=== PATIENT | female | born 1945 | race Caucasian/White ===

== ENCOUNTER 2016-10-09 08:56 | Inpatient (IN) | payer MEDICARE, BC ==
--- NOTE | 2016-10-04 04:14 | HP ---
HISTORY AND PHYSICAL: DATE OF SURGERY: 10/09/16 DATE OF OFFICE VISIT: 10/03/16 SURGEON: Emily Collazo MD PROCEDURE: Right total knee arthroplasty. CHIEF COMPLAINT: Right knee pain. HISTORY OF PRESENT ILLNESS: Ms. Turcios is a 71-year-old female with complaints of right knee pain secondary to advanced osteoarthritis. She has failed conservative management and has elected to proceed with right total knee arthroplasty, which is scheduled for 10/09/16. PAST MEDICAL HISTORY: Angina, asthma, GERD, polio, squamous cell carcinoma, hypertension, high cholesterol, osteomyelitis of the left foot. PAST SURGICAL HISTORY: Stent placement, tendon transfer of right leg, , tubal ligation, bunionectomy. CURRENT MEDICATIONS: 1. Nitroglycerin. 2. Omeprazole. 3. Rosuvastatin calcium. 4. Albuterol. 5. Bisoprolol fumarate/hydrochlorothiazide. 6. Budesonide/formoterol. 7. Montelukast. 8. Cyclosporine. 9. Restasis. 10. PreserVision. 11. Vitamin E. 12. Crestor. ALLERGIES: ATORVASTATIN, TAPE, MORPHINE which causes headaches, and OPIOID ANALGESICS which causes nausea only. FAMILY HISTORY: Heart disease, diabetes, breast cancer, esophageal cancer. SOCIAL HISTORY: She is a 71-year-old female. She is . She lives with her . She does not smoke, use drugs. Uses occasional alcohol. REVIEW OF SYSTEMS: A complete 14-point review of systems was reviewed with the patient. All was negative or noncontributory. PHYSICAL EXAMINATION GENERAL: She is well developed, well nourished, in no acute distress. VITAL SIGNS: She stands 5 feet 4 inches tall, weighs 165 pounds. Her blood pressure is 128/80, her heart rate is 81. HEENT: Normocephalic, atraumatic. NECK: Supple. No palpable lymph nodes. Trachea is midline. PULMONARY: Lungs are clear to auscultation bilaterally. No wheezes, rhonchi, or rales. CARDIO: Regular rate and rhythm. Strong S1, S2. No murmurs, gallops, or rubs. No peripheral edema. ABDOMEN: Soft, nontender, nondistended. NEUROLOGICAL: She is alert and oriented x3. Cranial nerves II through XII are intact. MUSCULOSKELETAL: Right lower extremity, the skin is intact. She has moderate joint effusion, tenderness over the medial and lateral joint line. She walks with an antalgic type gait favoring her right knee. She has full range of motion. 2+ dorsalis pedis pulses. Intact sensation. Her lower extremity muscle strengths are intact at 5/5. ASSESSMENT AND PLAN: Ms. Turcios is a 71-year-old female with continued complaints of right knee pain. She has failed conservative management and has elected to proceed with a right total knee arthroscopy which is scheduled for 10/09/[address] Collazo discussed the risks and benefits of the surgery at today's visit and all of her questions were answered. Percocet, Coumadin, and Colace were sent to her pharmacy for postoperative DVT prophylaxis and pain control. She will see Dr. Collazo back in 14 days after the surgery. LEWIS BURKETT [id number]/[facility] #: [id number] LAILA
[~2016-10-09 08:56] MED LIST: Buffered Lidocaine 1% SYRIN* 3 ML/SYR SYRINGE INTRADERM ONE; Dexamethasone IV* 4 MG/ML 1 ML (4 MG) IV SLOW PU ONE; Famotidine IV* 10 MG/ML 2 ML (20 mg) IV ONE
[2016-10-09] MEDS ORDERED: HYDROmorphone* 1 MG/ML 1 ML SYR ONE ×3 (09:04→14:22)
[2016-10-09] MEDS ORDERED: Midazolam* 1 MG/ML 5 ML VIAL (5 MG) ONE (09:04)
[2016-10-09] MEDS ORDERED: fentaNYL* 50 MCG/ML 2 ML VIAL (100 MCG VIAL) ONE ×3 (09:04→14:16)
[2016-10-09] MEDS ORDERED: Morphine PF AMP (0.5MG/ML)* 5 MG/10 ML AMP ONE (09:04)
[2016-10-09] MEDS ORDERED: Famotidine IV* 10 MG/ML 2 ML (20 mg) ONE (09:11)
[2016-10-09] MEDS ORDERED: Dexamethasone IV* 4 MG/ML 1 ML (4 MG) ONE (09:11)
[2016-10-09] MEDS ORDERED: ceFAZolin 2 GM PREMIX(*) 2 GM/50 ML BAG IVPB ONE (09:11)
[2016-10-09] MEDS ORDERED: fentaNYL* 50 MCG/ML 2 ML VIAL (100 MCG VIAL) IV PRN (10:43)
[2016-10-09] MEDS ORDERED: PROCHLORPERAZINE INJ 5 MG/ML 2 ML VIAL IV PRN ×2 (10:43→12:44)
[2016-10-09] MEDS ORDERED: DiMENhydriNATE IV* 50 MG/ML VIAL IV PUSH PRN ×2 (10:43→12:44)
[2016-10-09] MEDS ORDERED: Ondansetron INJ* 2 MG/ML VIAL IV PRN ×3 (10:43→14:24)
[2016-10-09] MEDS ORDERED: Nalbuphine* 20 MG/ML 1 ML VIAL IV PRN (12:44)
[2016-10-09] MEDS ORDERED: Naloxone* 0.4 MG/ML 1 ML VIAL IV PRN (12:44)
[2016-10-09] MEDS ORDERED: Polyethylene Glycol 3350* 17 GM PACKET PO PRN (14:24)
[2016-10-09] MEDS ORDERED: Bisacodyl SUPP* 10 MG SUPP PR PRN (14:24)
[2016-10-09] MEDS ORDERED: LACTULOSE* 30 ML UDC PO PRN (14:24)
--- NOTE | 2016-10-09 15:59 | RAD ---
Indication: Right knee replacement. 2 views of the right knee demonstrates bipolar knee arthroplasty in satisfactory position. IMPRESSION: Bipolar knee arthroplasty in satisfactory position.
[2016-10-09] MEDS ORDERED: Ondansetron INJ* 2 MG/ML VIAL ONE (16:14)
[2016-10-09] MEDS ORDERED: Albuterol HFA INHALER* 8 gm MDI INH PRN (16:21)
[2016-10-09] MEDS ORDERED: DiMENhydriNATE IV* 50 MG/ML VIAL ONE (16:54)
[2016-10-09] MEDS ORDERED: Warfarin TAB(*) 6 MG PO ONE (17:00)
[2016-10-09] MEDS ORDERED: diPHENhydraMINE IV* 50 MG/ML 1 ml VIAL (BENADRYL) ONE (17:49)
[2016-10-09] MEDS: diPHENhydraMINE IV* 50 MG/ML 1 ml VIAL (BENADRYL) IV PRN ×2 (17:53→23:59)
[2016-10-09] MEDS: Mometasone/Formoter 200/5 MDI INH SCH (20:02)
[2016-10-09] MEDS: ceFAZolin 1 GM in Dextrose (*) 1 GM/50 ML BAG IVPB SCH (20:13)
[2016-10-09] MEDS: Docusate CAP* 100 MG PO SCH (20:15)
[2016-10-09] MEDS: Magnesium Hydroxide LIQ* 30 ML UDC PO SCH (20:15)
[2016-10-09] MEDS: oxyCODONE/Acetamin 5/325 MG* TAB PO PRN (20:48)
--- NOTE | 2016-10-09 22:14 | CONS ---
CONSULTATION REPORT: DATE OF CONSULT: 10/09/16 PRIMARY CARE PROVIDER: Dr. Bowen REQUESTING PHYSICIAN FOR CONSULTATION: Dr. Collazo. MY ATTENDING PHYSICIAN WHILE IN THE HOSPITAL: Dr. Davion Carvajal (report dictated by Josue Duvall NP) REASON FOR MEDICAL CONSULTATION: Evaluation and management of comorbid medical problems. HISTORY OF PRESENT ILLNESS: I refer you to Dr. Collazo's H and P for further details. In short, Mrs. Turcios is a 71-year-old female patient who comes in with history of coronary artery disease, polio, asthma, hypertension, hyperlipidemia , arthritis, tachycardia, vitamin D deficiency, and GERD. Mrs. Turcios presented to Dr. Collazo's services for an elective total knee replacement. She had been having difficulty with right knee pain for some time. She had been failing conservative therapy and she elected to proceed with a right total knee arthroplasty on the . We were asked to evaluate and help manage her medical problems. She was evaluated in the PACU. She said she feels nauseous, but she says this is common for her after anesthesia. She denies having any chest pain or any shortness of breath, says she is feeling well. She denies having any abdominal pain. She says her knee pain is well controlled. PAST MEDICAL HISTORY: Significant for: 1. Coronary artery disease. 2. Polio. 3. Asthma. 4. Hyperlipidemia. 5. Hypertension. 6. Tachycardia. 7. Vitamin D deficiency. 8. GERD. PAST SURGICAL HISTORY: 1. She has had a cardiac catheterization with stent about 10 years ago. 2. She has had x2. 3. Tubal ligation. 4. Tendon replacement but to her lower bilateral knees. 5. She has just today had a right total knee replacement. 6. She has had a bunionectomy. 7. Cataract extraction. MEDICATIONS: Home meds according to the preop list include: 1. Mucinex 600 mg daily. 2. Crestor 40 mg daily. 3. Restasis 1 drop both eyes b.i.d. 4. PreserVision 1 capsule p.o. b.i.d. 5. Omeprazole 40 mg daily. 6. Nitro 1 tablet sublingual every 5 minutes as needed. 7. Singulair 10 mg p.o. daily. 8. Vitamin D 1 capsule p.o. daily. 9. Symbicort 2 puffs inhaled b.i.d. 10. Bisoprolol/hydrochlorothiazide 1 tablet daily. 11. Ventolin 2 puffs every 6 hours as needed. ALLERGIES TO MEDICATIONS: Include LIPITOR, MORPHINE, OPIATES and tapes. FAMILY HISTORY: Her mother had a history of COPD. Father had a CVA. SOCIAL HISTORY: She does not smoke. Does not drink. Her surrogate decision maker is her . REVIEW OF SYSTEMS: There is documented fever. She denied having any significant weight change. There was no double vision. There is no ear discharge. She denies having any rhinorrhea. There is no sore throat. No thyroid enlargement. Denied having any chest pain. No orthopnea. There was nausea. One episode of vomiting here. No abdominal pain. No loss of consciousness. No pruritus and no skin ulcerations. Review of 14 systems completed, all others were negative. PHYSICAL EXAM: GENERAL: At this time, Mrs. Turcios is a 71-year-old female patient. She is sitting in the PACU bed. She does not appear to be in any acute distress. VITAL SIGNS: Reveals a blood pressure of 111/60, pulse 73, respirations 20, O2 sat 98%, temperature 97.3. HEENT: Head atraumatic, normocephalic. Eyes: EOMs are intact. Sclerae anicteric. Throat: Oral mucosa appears to be moist. No oropharyngeal erythema. NECK: Supple. LUNGS: Clear to auscultation bilaterally. No wheezes, rales, or rhonchi. HEART: Heart sounds S1, S2. Regular rate and rhythm. No murmurs, rubs, or gallops. ABDOMEN: Soft, flat. Bowel sounds were hypoactive. EXTREMITIES: Her right lower extremity is jamar wrapped and warm, but distal CSM checks are intact. She is able to move the upper extremities, 5/5 strength. NEUROLOGIC: She is awake, alert, and oriented x3. Tongue midline. Wet Process Head Miller are equal. No gross focal deficits. SKIN: Grossly intact with the exception she has got an incision on the right knee, which is covered with an Jamar dressing. DIAGNOSTIC STUDIES/LAB DATA: Preoperatively revealed a WBC of 7.6, RBC of 4.33 , hemoglobin 12.5, hematocrit 38, platelet count of 191. Glucose 91, BUN 35, creatinine of 0.8. Sodium 142, potassium 4.1, chloride 103, CO2 28, calcium 9.1. She was evaluated preoperatively by her dowel machine operator. Old medical records were reviewed. ASSESSMENT AND PLAN: Mrs. Turcios is a 71-year-old female patient coming into the orthopedic services today for an elective right total knee replacement. Hospitalist service was asked to evaluate and consult. Our recommendations at this point are: 1. Status post total knee replacement: I will defer the management to Dr. Collazo and het team. 2. Coronary artery disease: She is on a Crestor and a beta-salma. We will continue these medications as prescribed. She is on a baby aspirin. We should continue this as soon as it is deemed okay by Orthopedics. 3. Polio: Not an active issue. 4. Asthma: P.r.n. albuterol has been ordered. 5. Hyperlipidemia: Continue statin therapy. 6. Hypertension: Continue meds as prescribed. I held her hydrochlorothiazide. 7. Tachycardia: Continue the beta-salma. She is not tachycardic now. We will monitor. 8. Vitamin D deficiency: Follow with primary. 9. GERD: Continue PPI therapy. 10. Code status: Full code. 11. DVT prophylaxis: I will defer to the primary team. 12. Fluids, electrolytes, and nutrition: I would recommend a heart healthy diet. TIME SPENT: Time spent on this consult was 60 minutes, greater than half the time was spent [id number] with the patient obtaining my history and physical, and the other half time was spent going over the plan of care with patient and implementing the plan of care. I did discuss the plan of care with my attending, Dr. Carvajal; he is in agreement. JOSUE DUVALL NP CC: Dr. Bowen; Dr. Collazo* [id number]/[facility] [place]: [id number] [facility]ENTERRalf
[2016-10-10] MEDS: oxyCODONE/Acetamin 5/325 MG* TAB PO PRN ×3 (01:56→14:06)
[2016-10-10] MEDS: ceFAZolin 1 GM in Dextrose (*) 1 GM/50 ML BAG IVPB SCH ×2 (03:31→11:44)
[2016-10-10] MEDS ORDERED: Ondansetron TAB* 4 MG PO PRN (04:15)
[2016-10-10] MEDS ORDERED: Ondansetron INJ* 2 MG/ML VIAL IV PRN (04:15)
[2016-10-10] MEDS ORDERED: Acetaminophen TAB* 325 MG PO PRN (04:15)
[2016-10-10] MEDS ORDERED: diPHENhydraMINE IV* 50 MG/ML 1 ml VIAL (BENADRYL) IV PRN (04:15)
[2016-10-10] MEDS ORDERED: HYDROmorphone* 2 MG/ML 1 ML SYR IV SLOW PU PRN (04:15)
[2016-10-10] MEDS: oxyCODONE TAB* 5 MG TAB PO PRN ×3 (06:57→16:42)
[2016-10-10 07:44] LABS: Hematocrit 31 % (35-47); Hemoglobin 10.2 g/dl (12.0-16.0)
[2016-10-10 08:02] LABS: BUN/Creatinine Ratio 26.1 (8-20); Calcium 8.4 mg/dL (8.6-10.3); EGFR African American 77.4 (>60); EGFR Non-African American 60.2 (>60); Potassium 3.7 mmol/L (3.5-5.0)
[2016-10-10] MEDS: Magnesium Hydroxide LIQ* 30 ML UDC PO SCH ×2 (08:17→20:03)
[2016-10-10] MEDS: Omeprazole CAP* 20 MG PO SCH (08:18)
[2016-10-10] MEDS: Mometasone/Formoter 200/5 MDI INH SCH ×2 (08:18→20:01)
[2016-10-10] MEDS: Bisoprolol TAB* 5 MG PO SCH (08:18)
[2016-10-10] MEDS: Docusate CAP* 100 MG PO SCH ×2 (08:18→20:01)
--- NOTE | 2016-10-10 08:26 | OP ---
OPERATIVE NOTE: DATE OF OPERATION: 10/09/16 DATE OF : 45 ATTENDING SURGEON: Emily Collazo MD BOLT SORTER: LEWIS Dickson ANESTHESIOLOGIST: Dr. Onofre ANESTHESIA TYPE: Spinal with adductor nerve block. PRE-OP DIAGNOSIS: Severe end-stage degenerative osteoarthritis of the right knee joint with valgus deformity. POST-OP DIAGNOSIS: Severe end-stage degenerative osteoarthritis of the right knee joint with valgus deformity. OPERATIVE PROCEDURE: Right total knee arthroplasty. TOURNIQUET TIME: 59 minutes. EBL: 200 cc. SPECIMENS: Bone and cartilage from right knee joint sent to pathology. COMPLICATIONS: None. HARDWARE USED: Cemented Onofre and Nephew total knee hardware. For the femur, a size 5 right narrow Oxinium femoral component. For the tibia, a size 3 right tibial baseplate. For the insert, a 9-mm posterior stabilized articular insert, size 3-4. For the patella, a 32-mm three-peg All-Poly arango la. Two packages of Simplex bone cement were used. BRIEF HISTORY/INDICATION: Ms. Turcios is a 71-year-old female with years of increasingly severe right knee pain and valgus deformity. The patient failed conservative treatment with anti-inflammatories, pain medications, brace wear, intra-articular injections, and ambulatory assistive devices. Valgus deformity became severe enough to make ambulation difficult. Due to failure of conservative treatm ent and decreased quality of life, the patient elected to have right total knee arthroplasty. Informed consent was obtained from the patient. She understood the risks of surgery included but we re not limited to bleeding, infection, damage to nearby structures, continued pain, need for further surgery, intraoperative fracture, nerve palsy, hardware failure or loosening, stroke, heart attack, blood clot, and . She wished to proceed. INTRAOPERATIVE FINDINGS: Intraoperatively, the patient was noted to have a 20- degree valgus deform ity that corrected by 5 degrees. She had 10-degree flexion contracture and 130 degrees of flexion. She was noted to have weak dorsiflexion due to baseline footdrop. Throughout the procedure, the pa tient was noted to have lateral femoral condylar hypoplasia. She had tricompartmental loss of carti lawrence which was severe. DESCRIPTION OF PROCEDURE: Ms. Turcios was identified in the preanesthesia unit. Her right lower extre mity was marked as the correct operative side. Informed consent was signed and placed in the chart. The patient was taken to the operating room and placed under spinal anesthesia with an adductor ne rve block. Jiang catheter was placed. Tourniquet was placed on the right side. Right lower extrem ity was prepped and draped in the usual sterile fashion. Preop time-out was made to correctly ident mary ellen the patient's side and site. Appropriate perioperative antibiotics were given within 1 hour of incision. A 15-cm midline incision was made with a 10 blade after tourniquet inflation. Total tourniquet time for this procedure was 59 minutes. Incision was extended down to the extensor mechanism. A new 10 blade was used to make a standard medial parapatellar arthrotomy. Patella was subluxed laterally. Electrocautery was used to subperiosteally elevate soft tissue off the superomedial tibia to the mid sagittal plane. The knee was flexed up. The anterior horn of the lateral meniscus and ACL were sh arply released. The drill was used to enter the distal femur. Intramedullary distal femoral cutting guide was pinned into proper position. Lateral femoral condylar hypoplasia was noted and accounted for. Oscillating saw was used to make the appropriate distal femoral cut. Next, an external rotati on guide was pinned on the distal femur. Distal femur was sized to a size 5. Size 5 multi-cutting jig was pinned into position on the distal femur. Oscillating saw was used to make the appropriate four chamfer cuts. Next, the PCL was completely released. Tibia was subluxed anteriorly. Extramedullary proximal tibia l cutting guide was pinned on the proximal tibia. The oscillating saw was used to make a proximal t ibial cut perpendicular to the mechanical axis of the tibia. The bone was carefully removed. The knee was brought out into full extension. There was significant tightness laterally, which was expected from the chronic valgus deformity. The 15 blade was used to perform a conservative pie-cru sting technique. Electrocautery was used to release capsule along the posterior lateral tibia. The PCL was completely released. Any osteophytes were removed from the lateral gutter. The mediolater al ligamentous balancing was significantly improved. The knee was flexed up. Lamina air filler was placed both medially and laterally. Any remaining menis cus was carefully removed using electrocautery. Posterior osteophytes were removed using a curved o steotome. A trial 5 right narrow femur was impacted onto the distal femur. The box for the posteri or stabilized implant was prepared using the reamer and box cut osteotome. The size 3 tibial tray t rial and a 9-mm insert trial were placed. The knee was brought out into full extension. Alignment w as improved to approximately 5 to 7 degrees of valgus. Medial and lateral ligamentous balancing was appropriate. Flexion and extension gaps were all balanced. The patella was everted. 9 mm of patellar bone and cartilage was carefully removed with an oscillat ing saw. The patella was sized to a size 32. Three pegs were drilled through the size 32 guide. S ize 32 trial was placed, and the knee was taken through a range of motion. Patellofemoral tracking was satisfactory. There was full extension to 125 degrees of flexion. All trials were carefully removed. The tibia was subluxed anteriorly and sized to a size 3. Proxim al tibia was prepared using a size 3 keel punch. Next, all bony cut surfaces were copiously irrigat ed with sterile saline and dried. Final implants were cemented into place starting with the tibia, followed by the femur, and last the patella. A 9-mm insert trial was placed while the knee was brou ght out in full extension. Tourniquet was turned down at 59 minutes. The cement was allowed to ful ly cure. Once the cement was fully cured, the insert trial was removed. Posterior capsule was chec ked for any bleeding. Any excess cement was carefully removed from around the implants or posterior capsule. A 9-mm posterior stabilized insert was chosen as the final implant. This was locked into position on the tibial tray. Stability of the insert was checked and rechecked and noted to be sta ble. The knee was copiously irrigated with sterile saline. The extensor mechanism was closed using inter rupted #1 Vicryls. The rest of the incision was closed in a layered fashion using 0 and 2-0 Vicryls . Skin was closed using running 3-0 nylon suture. Sterile Xeroform, 4 x 4s, and Webril were used t o cover the incision. Jamar wrap and cold pack were placed over this. The patient's anesthesia was reversed without difficulty. She was taken to the PACU in stable condi tion. Intended weightbearing will be weightbearing as tolerated. Intended DVT prophylaxis will be Coumadin with a Lovenox bridge. [id number]/[facility] #: [id number]
[2016-10-10] MEDS ORDERED: ROSUVASTATIN 40 MG PO SCH (09:00)
--- NOTE | 2016-10-10 09:02 | PN ---
Progress Note - Progress Note SOAP: Subjective: []Patient seen OOB in chair. Doing well, despite one episode of vomiting this am. "I think I ate my breakfast too fast." Pain well managed. Objective: [] Vital Signs Temp 98.3 F 10/10/16 07:14 Pulse 85 10/10/16 07:14 Resp 16 10/10/16 07:14 BP 105/54 10/10/16 07:14 Pulse Ox 95 10/10/16 07:14 Intake & Output 10/09/16 10/10/16 10/10/16 18:59 06:59 18:59 Intake Total 2550 1753 320 Output Total 925 600 Balance 1625 1153 320 Weight 160 lb 12.8 oz Intake: IV Fluids 2550 980 LR 2500 980 NS 50ML, Cefazolin 2G 50 IVPB 53 ABX - CEFAZOLIN 53 Oral 720 320 Output: Jiang 825 600 Emesis 100 Laboratory Results - last 24 hr 10/10/16 10/10/16 10/10/16 07:13 07:13 07:13 Hgb 10.2 L Hct 31 L INR (Anticoag Therapy) 1.03 Sodium 133 Potassium 3.7 Chloride 99 L Carbon Dioxide 31 Anion Gap 3 BUN 24 Creatinine 0.92 Est GFR ( Amer) 77.4 Est GFR (Non-Af Amer) 60.2 BUN/Creatinine Ratio 26.1 H Glucose 125 H Calcium 8.4 L Right knee dressing is clean, dry and intact calf is non tender and soft + DF/PF right ankle neuro intact distally Assessment: []s/p Right total knee arthroplasty POD #1 Plan: []PT/OT WBAT Coumadin with Lovenox bridge, 6 mg today Home saturday
[2016-10-10] MEDS: Montelukast Sodium TAB* 10 MG PO SCH (10:06)
[2016-10-10] MEDS: diPHENhydraMINE PO* 25 MG PO PRN ×2 (10:38→16:42)
--- NOTE | 2016-10-10 10:57 | PN ---
Subjective Date of Service: 10/10/16 Interval History: Patient seen and examined at bedside. She reports n/v last evening but feeling better today. Denies CP, SOB, abd pain. Tolerated lunch without issue. Reports increased flatus. She also reports increasing pain as the nerve block has worn off. Family History: Unchanged from Admission Social History: Unchanged from Admission Past Medical History: Unchanged from Admission Objective Active Medications: Acetaminophen (Tylenol Tab*) 650 mg PO Q4H PRN PRN Reason: mild pain or fever Albuterol (Ventolin Hfa Inhaler*) 2 puff INH Q6HR PRN PRN Reason: SOB/WHEEZING Bisacodyl (Dulcolax Supp*) 10 mg [place] DAILY PRN PRN Reason: constipation Bisoprolol Fumarate (Zebeta Tab*) 10 mg PO DAILY [facility] Last Admin: 10/10/16 08:18 Dose: 10 mg Diphenhydramine HCl (Benadryl Iv*) 12.5 mg IV Q6H PRN PRN Reason: PRURITIS Diphenhydramine HCl (Benadryl Po*) 25 mg PO Q6H PRN PRN Reason: itching Last Admin: 10/10/16 10:38 Dose: 25 mg Docusate Sodium (Colace Cap*) 100 mg PO BID [facility] Last Admin: 10/10/16 08:18 Dose: 100 mg Enoxaparin Sodium (Lovenox(*)) 30 mg SUBCUT Q24H [facility] Hydromorphone HCl (Dilaudid Iv*) 4 mg IV SLOW PU Q8H PRN PRN Reason: SEVERE PAIN Cefazolin Sodium/Dextrose (Kefzol 1 Gm In Dextrose Duplex (*)) 1 gm in 50 mls @ 200 mls/hr IVPB Q8H [facility] Stop: 10/10/16 12:14 Last Admin: 10/10/16 03:31 Dose: 200 mls/hr Lactated Ringer's (Lactated Ringers 1000 Ml Bag*) 1,000 mls @ 100 mls/hr IV PER RATE [facility] Last Admin: 10/10/16 03:38 Dose: 100 mls/hr Lactulose (Lactulose*) 30 ml PO Q6H PRN PRN Reason: constipation Magnesium Hydroxide (Milk Of Magnesia Liq*) 30 ml PO BID [facility] Last Admin: 10/10/16 08:17 Dose: 30 ml Mometasone Furoate/Formoterol Fumar (Dulera 200/5 Mdi*) 2 puff INH BID [facility] PRN Reason: Protocol Last Admin: 10/10/16 08:18 Dose: 2 puff Montelukast Sodium (Singulair Tab*) 10 mg PO DAILY [facility] Last Admin: 10/10/16 10:06 Dose: 10 mg Omeprazole (Prilosec Cap*) 40 mg PO DAILY [facility] Last Admin: 10/10/16 08:18 Dose: 40 mg Ondansetron HCl (Zofran Tab*) 4 mg PO Q6H PRN PRN Reason: NAUSEA Ondansetron HCl (Zofran Inj*) 4 mg IV Q6HR PRN PRN Reason: NAUSEA/VOMITING Last Admin: 10/10/16 08:54 Dose: 4 mg Oxycodone HCl (Roxycodone Tab*) 10 mg PO Q4H PRN PRN Reason: breakthrough pain Last Admin: 10/10/16 06:57 Dose: 10 mg Oxycodone/Acetaminophen (Percocet 5/325 Tab*) 1 tab PO Q3H PRN PRN Reason: PAIN - MODERATE Last Admin: 10/10/16 10:03 Dose: 1 tab Pharmacy Profile Note (Coumadin Daily Reminder*) 1 note FOLLOW UP 1700 [facility] Polyethylene Glycol/Electrolytes (Miralax*) 17 gm PO DAILY PRN PRN Reason: Constipation Rosuvastatin Calcium (Crestor (Nf)) 40 mg PO DAILY [facility] Last Admin: 10/10/16 10:06 Dose: Not Given Warfarin Sodium (Coumadin Tab(*)) 6 mg PO ONCE@1700 [facility] PRN Reason: Protocol Stop: 10/10/16 17:01 Vital Signs 10/09/16 10/09/16 10/09/16 14:50 14:55 15:00 Temperature 97.5 F Pulse Rate 92 84 85 Respiratory 14 16 16 Rate Blood Pressure 87/44 91/41 85/45 (mmHg) O2 Sat by Pulse 96 96 94 Oximetry 10/09/16 10/09/16 10/09/16 15:15 15:30 15:45 Temperature Pulse Rate 83 83 75 Respiratory 16 14 14 Rate Blood Pressure 84/41 105/61 101/59 (mmHg) O2 Sat by Pulse 95 95 96 Oximetry 10/09/16 10/09/1610/09/17 16:00 16:15 16:30 Temperature 97.3 F Pulse Rate 73 73 73 Respiratory 16 17 20 Rate Blood Pressure 96/64 95/71 111/60 (mmHg) O2 Sat by Pulse 96 97 98 Oximetry 10/09/16 10/09/16 10/09/16 16:45 17:09 17:30 Temperature 97.8 F Pulse Rate 73 74 Respiratory 17 16 15 Rate Blood Pressure 106/61 104/59 (mmHg) O2 Sat by Pulse 98 98 Oximetry 10/09/16 10/09/16 10/09/16 18:15 19:25 20:04 Temperature 97.5 F 98.0 F Pulse Rate 77 81 Respiratory 14 16 Rate Blood Pressure 97/78 101/61 (mmHg) O2 Sat by Pulse 98 100 98 Oximetry 10/09/16 10/09/16 10/09/16 20:44 20:48 21:20 Temperature 98.1 F Pulse Rate 84 Respiratory 16 16 16 Rate Blood Pressure 110/55 (mmHg) O2 Sat by Pulse 96 Oximetry 10/09/16 10/09/16 10/09/16 22:48 23:32 23:59 Temperature 97.8 F Pulse Rate 78 Respiratory 16 16 16 Rate Blood Pressure 100/47 (mmHg) O2 Sat by Pulse 94 Oximetry 10/10/16 10/10/16 10/10/16 00:00 00:59 01:56 Temperature Pulse Rate Respiratory 16 16 Rate Blood Pressure (mmHg) O2 Sat by Pulse 94 Oximetry 10/10/16 10/10/16 10/10/16 03:26 03:56 06:57 Temperature 97.6 F Pulse Rate 84 Respiratory 16 16 16 Rate Blood Pressure 96/51 (mmHg) O2 Sat by Pulse 93 Oximetry 10/10/16 10/10/16 10/10/16 07:14 08:57 10:03 Temperature 98.3 F Pulse Rate 85 Respiratory 16 16 15 Rate Blood Pressure 105/54 (mmHg) O2 Sat by Pulse 95 Oximetry 10/10/16 10:38 Temperature Pulse Rate Respiratory 16 Rate Blood Pressure (mmHg) O2 Sat by Pulse Oximetry Oxygen Devices in Use Now: None Appearance: Female patient, sitting up in bed, in NAD Eyes: PERRLA Ears/Nose/Mouth/Throat: Clear Oropharnyx, Mucous Membranes Moist Neck: NL Appearance and Movements; NL JVP Respiratory: Symmetrical Chest Expansion and Respiratory Effort, Clear to Auscultation Cardiovascular: NL Sounds; No Murmurs; No JVD, RRR Abdominal: NL Sounds; No Tenderness; No Distention Extremities: - - R knee dressing c/d/i with cryotherapy cuff in place, 2+ distal pulses, brisk cap refill Skin: No Rash or Ulcers Neurological: Alert and Oriented x 3 Lines/Tubes/Other Access: Clean, Dry and Intact Peripheral IV Nutrition: Taking PO's Result Diagrams: 10/10/16 07:13 10/10/16 07:13 Assess/Plan/Problems-Billing Assessment: Ms. Turcios is a 71 yo female with a PMH of CAD, polio, asthma, HLD, HTN, tachycardia, GERD, and vitamin D deficiency who was admitted 10/09 for an elective right total knee replacement. - Patient Problems (1) Status post total right knee replacement Code(s): Z96.651 - PRESENCE OF RIGHT ARTIFICIAL KNEE JOINT Comment: POD #1, management per ortho HH stable PT/OT PRN analgesia and supportive care Increased Percocet from 1 to 2 tabs q4 for better pain control (2) CAD (coronary artery disease) Code(s): I25.10 - ATHSCL HEART DISEASE OF [place] CORONARY ARTERY W/O ANG PCTRS Comment: Stable, continue statin. (3) Asthma Code(s): J45.909 - UNSPECIFIED ASTHMA, UNCOMPLICATED Comment: Stable, continue montelukast, Dulera, and PRN albuterol. (4) HTN (hypertension) Code(s): I10 - ESSENTIAL (PRIMARY) HYPERTENSION Comment: Mildly hypotensive to normotensive. Continue to hold bisoprolol/HCTZ post operatively. (5) HLD (hyperlipidemia) Code(s): E78.5 - HYPERLIPIDEMIA, UNSPECIFIED Comment: Continue statin. (6) GERD (gastroesophageal reflux disease) Code(s): K21.9 - GASTRO-ESOPHAGEAL REFLUX DISEASE WITHOUT ESOPHAGITIS Comment : Stable. Continue omeprazole. (7) DVT prophylaxis Code(s): WJM3784 - Comment: Per ortho SQ enoxaparin and warfarin Status and Disposition: Inpatient admission. Disposition per ortho. Hospital medicine co-medical management.
[2016-10-10] MEDS: Enoxaparin(*) 30 MG/0.3 ML SYR SUBCUT SCH (16:03)
[2016-10-10] MEDS ORDERED: oxyCODONE/Acetamin 5/325 MG* TAB PO PRN (16:39)
[2016-10-10] MEDS ORDERED: Warfarin TAB(*) 6 MG PO SCH (17:00)
[2016-10-10] MEDS ORDERED: HYDROmorphone* 2 MG/ML 1 ML SYR IV PRN (19:56)
[2016-10-10] MEDS ORDERED: HYDROmorphone* 2 MG/ML 1 ML SYR ONE (19:57)
[2016-10-10] MEDS: PTO: Cyclosporine 0.05% OPHTH (NF) 0.4 ML VIAL BOTH EYES SCH (20:01)
[2016-10-10] MEDS: ROSUVASTATIN 40 MG PO SCH (20:02)
[2016-10-11] MEDS: oxyCODONE TAB* 5 MG TAB PO PRN ×2 (00:11→10:01)
[2016-10-11] MEDS: oxyCODONE/Acetamin 5/325 MG* TAB PO PRN ×5 (04:15→23:19)
[2016-10-11 07:21] LABS: Hematocrit 28 % (35-47); Hemoglobin 9.5 g/dl (12.0-16.0)
--- NOTE | 2016-10-11 07:42 | PN ---
Progress Note - Progress Note SOAP: Subjective: Pt. reports pain in R knee is severe. Objective: RLE - dressing changed, inc c/d/i. distally nvi with min edema. Vital Signs: Temp Pulse Resp BP Pulse Ox 98.0 F 83 16 118/53 93 10/11/16 03:35 10/11/16 03:35 10/11/16 04:15 10/11/16 03:35 10/11/16 03:35 Laboratory Results - last 24 hr 10/10/16 10/10/16 10/10/16 07:13 07:13 07:13 Hgb 10.2 L Hct 31 L INR (Anticoag Therapy) 1.03 Sodium 133 Potassium 3.7 Chloride 99 L Carbon Dioxide 31 Anion Gap 3 BUN 24 Creatinine 0.92 Est GFR ( Amer) 77.4 Est GFR (Non-Af Amer) 60.2 BUN/Creatinine Ratio 26.1 H Glucose 125 H Calcium 8.4 L 10/11/16 07:05 Hgb 9.5 L Hct 28 L INR (Anticoag Therapy) Sodium Potassium Chloride Carbon Dioxide Anion Gap BUN Creatinine Est GFR ( Amer) Est GFR (Non-Af Amer) BUN/Creatinine Ratio Glucose Calcium Assessment: 71 yo F pod 2 s/p RTKA Plan: wbat pt/ot inr pending cont lovenox.
[2016-10-11] MEDS: Montelukast Sodium TAB* 10 MG PO SCH (07:58)
[2016-10-11] MEDS: Magnesium Hydroxide LIQ* 30 ML UDC PO SCH ×2 (07:58→20:20)
[2016-10-11] MEDS: Docusate CAP* 100 MG PO SCH ×2 (07:58→20:22)
[2016-10-11] MEDS: Omeprazole CAP* 20 MG PO SCH (07:58)
[2016-10-11] MEDS: PTO: Cyclosporine 0.05% OPHTH (NF) 0.4 ML VIAL BOTH EYES SCH ×2 (09:00→20:22)
[2016-10-11] MEDS: Bisoprolol TAB* 5 MG PO SCH (10:01)
[2016-10-11] MEDS: Mometasone/Formoter 200/5 MDI INH SCH ×2 (10:01→21:54)
[2016-10-11] MEDS: Enoxaparin(*) 30 MG/0.3 ML SYR SUBCUT SCH (14:41)
--- NOTE | 2016-10-11 16:54 | PN ---
Subjective Date of Service: 10/11/16 Interval History: patient reports she feels better today and is hoping she can go home tomorrow. She report right knee "mild pain and stiffness" but states it is well controlled. Denies fever or chills. No SOB or CP. No N/V/D. No dizziness Family History: Unchanged from Admission Social History: Unchanged from Admission Past Medical History: Unchanged from Admission Objective Active Medications: Acetaminophen (Tylenol Tab*) 650 mg PO Q4H PRN PRN Reason: mild pain or fever Albuterol (Ventolin Hfa Inhaler*) 2 puff INH Q6HR PRN PRN Reason: SOB/WHEEZING Bisacodyl (Dulcolax Supp*) 10 mg [place] DAILY PRN PRN Reason: constipation Bisoprolol Fumarate (Zebeta Tab*) 10 mg PO DAILY [facility] Last Admin: 10/11/16 10:01 Dose: 10 mg Cyclosporine (Restasis 0.05% Oph) 1 drop BOTH EYES BID [facility] Last Admin: 10/11/16 09:00 Dose: 1 drop Diphenhydramine HCl (Benadryl Iv*) 12.5 mg IV Q6H PRN PRN Reason: PRURITIS Diphenhydramine HCl (Benadryl Po*) 25 mg PO Q6H PRN PRN Reason: itching Last Admin: 10/10/16 16:42 Dose: 25 mg Docusate Sodium (Colace Cap*) 100 mg PO BID [facility] Last Admin: 10/11/16 07:58 Dose: 100 mg Enoxaparin Sodium (Lovenox(*)) 30 mg SUBCUT Q24H [facility] Last Admin: 10/11/16 14:41 Dose: 30 mg Hydromorphone HCl (Dilaudid Iv*) 4 mg IV SLOW PU Q8H PRN PRN Reason: SEVERE PAIN Hydromorphone HCl (Dilaudid Iv*) 2 mg IV Q8H PRN PRN Reason: PAIN - SEVERE Lactated Ringer's (Lactated Ringers 1000 Ml Bag*) 1,000 mls @ 100 mls/hr IV PER RATE [facility] Last Admin: 10/11/16 00:00 Dose: 100 mls/hr Lactulose (Lactulose*) 30 ml PO Q6H PRN PRN Reason: constipation Last Admin: 10/11/16 14:41 Dose: 30 ml Magnesium Hydroxide (Milk Of Magnesia Liq*) 30 ml PO BID [facility] Last Admin: 10/11/16 07:58 Dose: 30 ml Mometasone Furoate/Formoterol Fumar (Dulera 200/5 Mdi*) 2 puff INH BID [facility] PRN Reason: Protocol Last Admin: 10/11/16 10:01 Dose: 2 puff Montelukast Sodium (Singulair Tab*) 10 mg PO DAILY [facility] Last Admin: 10/11/16 07:58 Dose: 10 mg Omeprazole (Prilosec Cap*) 40 mg PO DAILY [facility] Last Admin: 10/11/16 07:58 Dose: 40 mg Ondansetron HCl (Zofran Tab*) 4 mg PO Q6H PRN PRN Reason: NAUSEA Ondansetron HCl (Zofran Inj*) 4 mg IV Q6HR PRN PRN Reason: NAUSEA/VOMITING Last Admin: 10/10/16 08:54 Dose: 4 mg Oxycodone HCl (Roxycodone Tab*) 10 mg PO Q4H PRN PRN Reason: breakthrough pain Last Admin: 10/11/16 10:01 Dose: 10 mg Oxycodone/Acetaminophen (Percocet 5/325 Tab*) 2 tab PO Q4H PRN PRN Reason: PAIN - MODERATE TO SEVERE Last Admin: 10/11/16 13:19 Dose: 2 tab Oxycodone/Acetaminophen (Percocet 5/325 Tab*) 1 tab PO Q4H PRN PRN Reason: PAIN - MILD TO MODERATE Pharmacy Profile Note (Coumadin Daily Reminder*) 1 note FOLLOW UP 1700 [facility] Last Admin: 10/10/16 18:12 Dose: 1 note Polyethylene Glycol/Electrolytes (Miralax*) 17 gm PO DAILY PRN PRN Reason: Constipation Rosuvastatin Calcium (Crestor (Nf)) 40 mg PO BEDTIME [facility] Last Admin: 10/10/16 20:02 Dose: 40 mg Warfarin Sodium (Coumadin Tab(*)) 4 mg PO ONCE@1700 [facility] PRN Reason: Protocol Stop: 10/11/16 17:01 Vital Signs 10/10/16 10/10/16 10/10/16 18:12 19:22 20:01 Temperature 97.9 F Pulse Rate 82 Respiratory 16 16 16 Rate Blood Pressure 106/66 (mmHg) O2 Sat by Pulse 94 Oximetry 10/10/16 10/10/16 10/11/16 20:10 21:01 00:11 Temperature Pulse Rate Respiratory 16 12 14 Rate Blood Pressure (mmHg) O2 Sat by Pulse Oximetry 10/11/16 10/11/16 10/11/16 00:16 02:11 03:35 Temperature 97.6 F 98.0 F Pulse Rate 82 83 Respiratory 16 12 16 Rate Blood Pressure 111/51 118/53 (mmHg) O2 Sat by Pulse 91 93 Oximetry 10/11/16 10/11/16 10/11/16 04:15 06:15 07:23 Temperature 98.1 F Pulse Rate 81 Respiratory 16 18 16 Rate Blood Pressure 108/51 (mmHg) O2 Sat by Pulse 92 Oximetry 10/11/16 10/11/16 10/11/16 07:58 08:00 09:58 Temperature Pulse Rate Respiratory 18 18 18 Rate Blood Pressure (mmHg) O2 Sat by Pulse 92 Oximetry 10/11/16 10/11/16 10/11/16 10:01 11:49 12:01 Temperature 97.4 F Pulse Rate 82 Respiratory 18 16 18 Rate Blood Pressure 117/61 (mmHg) O2 Sat by Pulse 97 Oximetry 10/11/16 10/11/16 10/11/16 13:19 15:09 15:19 Temperature 97.7 F Pulse Rate 95 Respiratory 18 20 16 Rate Blood Pressure 101/47 (mmHg) O2 Sat by Pulse 93 Oximetry 10/11/16 16:00 Temperature Pulse Rate Respiratory Rate Blood Pressure (mmHg) O2 Sat by Pulse 93 Oximetry Oxygen Devices in Use Now: None Appearance: 71 yo female sitting up in a chair in NAD. A+O x3 Eyes: No Scleral Icterus, PERRLA Ears/Nose/Mouth/Throat: NL Teeth, Lips, Gums, Mucous Membranes Moist Neck: NL Appearance and Movements; NL JVP Respiratory: Symmetrical Chest Expansion and Respiratory Effort, Clear to Auscultation Cardiovascular: NL Sounds; No Murmurs; No JVD, RRR, No Edema Abdominal: NL Sounds; No Tenderness; No Distention Extremities: No Edema, No Clubbing, Cyanosis, - - right knee with peace bandage CD +I with cryo unit in place. mild generalized edema to right leg. +pulses, pink color, warm Skin: No Rash or Ulcers, No Nodules or Sclerosis Neurological: Alert and Oriented x 3, NL Muscle Strength and Tone Lines/Tubes/Other Access: Clean, Dry and Intact Peripheral IV Nutrition: Taking PO's Result Diagrams: 10/11/16 07:05 10/10/16 07:13 Assess/Plan/Problems-Billing Assessment: Ms. Turcios is a 71 yo female with a PMH of CAD, polio, asthma, HLD, HTN, tachycardia, GERD, and vitamin D deficiency who was admitted 10/09 for an elective right total knee replacement. - Patient Problems (1) Status post total right knee replacement Comment: POD #2, management per ortho HH stable PT/OT PRN analgesia and supportive care (2) Asthma Comment: Stable, continue montelukast, Dulera, and PRN albuterol. (3) CAD (coronary artery disease) Comment: Stable, continue statin. (4) GERD (gastroesophageal reflux disease) Comment: Stable. Continue omeprazole. (5) HLD (hyperlipidemia) Comment: Continue statin. (6) HTN (hypertension) Comment: Mildly hypotensive to normotensive. Continue to hold bisoprolol/HCTZ post operatively. (7) DVT prophylaxis Comment: Per ortho SQ enoxaparin and warfarin Status and Disposition: Inpatient admission. Disposition per ortho. Hospital medicine co-medical management.
[2016-10-11] MEDS ORDERED: Warfarin TAB(*) 4 MG PO ONE (17:00)
[2016-10-11] MEDS: ROSUVASTATIN 40 MG PO SCH (20:21)
[2016-10-12] MEDS: oxyCODONE/Acetamin 5/325 MG* TAB PO PRN ×2 (04:19→09:17)
[2016-10-12 06:53] LABS: Hematocrit 28 % (35-47); Hemoglobin 9.4 g/dl (12.0-16.0); Mean Corpuscular HGB Conc 33 g/dl (31-36); Mean Corpuscular Hemoglobin 29 pg (27-31); Mean Corpuscular Volume 87 fL (80-97); Mean Platelet Volume 9 um3 (7.4-10.4); Red Blood Count 3.25 10^6/ul (4.0-5.4); Red Cell Distribution Width 14 % (10.5-15); White Blood Count 9.3 10^3/ul (3.5-10.8)
[2016-10-12 07:13] LABS: BUN/Creatinine Ratio 12.3 (8-20); Calcium 8.4 mg/dL (8.6-10.3); EGFR African American 101.1 (>60); EGFR Non-African American 78.6 (>60); Potassium 4.4 mmol/L (3.5-5.0)
--- NOTE | 2016-10-12 08:28 | PN ---
Progress Note - Progress Note SOAP: Subjective: [71 y/o female s/p R TKA 10/[address] Collazo. VSS overnight, H&H stable. Patient reports feeling fatigued from not sleeping overnight, denies N/V/SOB. no other complaints, concerns. Eager for D/C. ] Objective: [General- Well appearing, sitting in chair comfortably. MSK- Incision D/C/I, no drainage noted, PF/DF + B/L LEs neg homans sign B/L, sensation grossly intact b/l LE's PT 2+ b/l LEs Vital Signs Temp 98.5 F 10/12/16 07:37 Pulse 85 10/12/16 07:37 Resp 18 10/12/16 07:37 BP 131/73 10/12/16 07:37 Pulse Ox 97 10/12/16 07:37 Intake & Output 10/11/16 10/12/16 10/12/16 18:59 06:59 18:59 Intake Total 320 475 Output Total 1600 400 400 Balance -1280 75 -400 Intake: Oral 320 475 Output: Urine 1600 400 400 Other: Estimated Void Medium Date of Last Bowel 10/12/16 Movement # Bowel Movements 1 Estimated Stool Amount Medium # Voids 1 Laboratory Results - last 24 hr 10/12/16 10/12/16 10/12/16 06:31 06:31 06:31 WBC 9.3 RBC 3.25 L Hgb 9.4 L Hct 28 L MCV 87 MCH 29 MCHC 33 RDW 14 Plt Count 149 L MPV 9 Neut % (Auto) 77.8 Lymph % (Auto) 12.4 L Wilkin % (Auto) 7.5 Eos % (Auto) 1.8 Baso % (Auto) 0.5 Absolute Neuts (auto) 7.2 Absolute Lymphs (auto) 1.1 Absolute Monos (auto) 0.7 Absolute Eos (auto) 0.2 Absolute Basos (auto) 0 Absolute Nucleated RBC 0.01 Nucleated RBC % 0.1 INR (Anticoag Therapy) 2.18 H Sodium 135 Potassium 4.4 Chloride 101 Carbon Dioxide 30 Anion Gap 4 BUN 9 Creatinine 0.73 Est GFR ( Amer) 101.1 Est GFR (Non-Af Amer) 78.6 BUN/Creatinine Ratio 12.3 Glucose 115 H Calcium 8.4 L ] Assessment: [71 y/o female s/p R TKA 10/[address] Collazo. ] Plan: [- DVT pro- theraputic with coumadin, D/C lovenox today. - Continue PT/ OT - Follow up with Dr. Collazo within 10-14 days post-op - Coumadin- 10/12- 2mg 10/13- 4mg 10/14- 2mg ]
[2016-10-12] MEDS: Magnesium Hydroxide LIQ* 30 ML UDC PO SCH (08:55)
[2016-10-12] MEDS: Bisoprolol TAB* 5 MG PO SCH (09:01)
[2016-10-12] MEDS: Docusate CAP* 100 MG PO SCH (09:01)
[2016-10-12] MEDS: Omeprazole CAP* 20 MG PO SCH (09:02)
[2016-10-12] MEDS: Montelukast Sodium TAB* 10 MG PO SCH (09:02)
[2016-10-12] MEDS: PTO: Cyclosporine 0.05% OPHTH (NF) 0.4 ML VIAL BOTH EYES SCH (09:03)
[2016-10-12] MEDS: Mometasone/Formoter 200/5 MDI INH SCH (09:11)
[2016-10-12 12:20] VITALS: BP 107/83
--- NOTE | 2016-10-13 04:46 | DS ---
DISCHARGE SUMMARY: DATE OF ADMISSION: 10/09/16 DATE OF DISCHARGE: 10/12/16 CHIEF COMPLAINTS: 1. Right knee osteoarthritis. 2. Angina. 3. Asthma. 4. Gastroesophageal reflux disease. 5. History of polio. 6. Squamous cell carcinoma. 7. Hypertension. 8. High cholesterol. 9. History of osteoarthritis in the left foot. DISCHARGE DIAGNOSES: 1. Status post right total knee arthroplasty. 2. Angina. 3. Asthma. 4. Gastroesophageal reflux disease. 5. History of polio. 6. History of squamous cell carcinoma. 7. Hypertension. 8. Elevated cholesterol. 9. Osteomyelitis of the left foot, history of. PROCEDURE: Right total knee arthroplasty. CONSULTATIONS: 1. Physical Therapy. 2. Occupational Therapy. 3. Medicine. BRIEF HISTORY: Ms. Turcios is a very pleasant 71-year-old female, with a longstanding history of sever e end-stage degenerative osteoarthritis of the right knee, who failed conservative treatment and stephanie cted to go undergo a left total knee arthroplasty on 10/09/[address] Emily Collazo. HOSPITAL COURSE: Mrs. Turcios was admitted to [facility] on 10/09/16 where she underwent a right total knee arthroplasty, which was uncomplicated. Postoperatively, she recovered in the Surg al Short-Stay Unit. Her Jiang was removed on postoperative day 2 and she was able to avoid on her o wn without difficulty. She was advanced to a regular diet and her pain was controlled with p.o. Per cocet. Her home blood pressure medications were held for the first two days due to hypotension. He r labs and vital signs remain stable. She was able to bear weight as tolerated on the left lower ex tremity. She advanced appropriately with Physical Therapy and Occupational Therapy. Her DVT prophy laxis was managed with Lovenox and Coumadin until she reached a therapeutic INR. By postoperative d ay #3, she was orthopedically and medically stable to discharge to home and restart all of her home medications. PHYSICAL EXAMINATION: General: Well appearing, in no acute distress. Alert and oriented. Vital S igns: Temperature 98.5, pulse 85, respirations 18, blood pressure 131/73, and pulse oxygenation 97% on room air. Musculoskeletal: The incisions on the right knee is clean, dry, and intact. There i s no drainage noted. Plantar flexion and dorsi flexion bilaterally are equal. Negative Homans sign, bilateral lower extremities. Sensation is grossly intact bilaterally in the lower extremities and posterior tibial pulses 2+ bilateral lower extremities, minimal edema seen. LABORATORY DATA: On the date of discharge, hemoglobin of 9.4 and hematocrit 28. INR of 2.18. DISCHARGE MEDICATIONS: 1. Albuterol inhaler 1 or 2 puffs inhalation q.6 hours p.r.n. 2. Restasis one drop bilateral eyes b.i.d. 3. Dulcolax 100 mg p.o. b.i.d. 4. Symbicort 1 to 2 puffs inhalation b.i.d. 5. Singulair 10 mg tablet p.o. daily. 6. Prilosec 40 mg p.o. daily. 7. Crestor 40 mg p.o. daily. 8. Oxycodone/acetaminophen 5/325 1 to 2 tablets q.4 hours p.r.n. pain. 9. Mucinex 600 mg p.o. daily. 10. Coumadin 2 mg tablet p.o. daily at 5 p.m. per physician's instructions. 11. PreserVision 1 caplet p.o. b.i.d. 12. Nitro-Dur 1 tablet sublingual q.5 minutes p.r.n. 13. Vitamin D 1000 units p.o. daily. 14. Bisoprolol and hydrochlorothiazide 05/10.25 one tablet p.o. daily. CONDITION ON DISCHARGE: Stable. DISCHARGE INSTRUCTIONS: Mrs. Turcios is a very pleasant 71-year-old female, status post right total kn ee replacement, which was uncomplicated. She is orthopedically and medically stable for discharge t o go home with home services. Her labs and vital signs are stable. She will restart her home medic ations. She will take 2 mg of Coumadin tonight and 4 mg on Saturday and 2 mg on Saturday and will hav e her INR checked on Saturday. She will have INR draws on Mondays and with visiting home [facility]. She will remain weightbearing as tolerated on the right lower extremity. She will have [facility] up to twice a week. She will continue to take Percocet for pain control and Col peace up to three times a day to prevent constipation. She will follow up with Dr. Collazo in [facility] 10 to 14 days for incision check and suture removal. She was instructed to go immediately to t he ER should she develop chest pain or shortness of breath. Should she develop fever, increasing pa in, or increasing redness, she is to call the office immediately. LEWIS QUINTANILLA [id number]/[facility] #: [id number]
== END 2016-10-12 13:15 | disposition home health service (06) | DRG 470 ==
LOC: AA 08:56 → SSU 14:17
PROVIDERS: ADMIT Orthopaedic Surgery Adult Reconstructive Orthopaedic Surgery; ATTEND Orthopaedic Surgery Adult Reconstructive Orthopaedic Surgery
PROC: 0SRC0J9 Replacement of Right Knee Joint with Synthetic Substitute, Cemented, Open Approach (ICD-10-PCS; principal; 2016-10-09 12:00)
DX: M17.11 Unilateral primary osteoarthritis, right knee (principal); I95.9 Hypotension, unspecified; J45.909 Unspecified asthma, uncomplicated; K21.9 Gastro-esophageal reflux disease without esophagitis; M19.072 Primary osteoarthritis, left ankle and foot; I10 Essential (primary) hypertension; E78.5 Hyperlipidemia, unspecified; I25.10 Atherosclerotic heart disease of native coronary artery without angina pectoris; E55.9 Vitamin D deficiency, unspecified; M25.761 Osteophyte, right knee; R00.0 Tachycardia, unspecified; Z86.12 Personal history of poliomyelitis; Q72.891 Other reduction defects of right lower limb; Z95.5 Presence of coronary angioplasty implant and graft; Z98.49 Cataract extraction status, unspecified eye; Z82.3 Family history of stroke; Z82.5 Family history of asthma and other chronic lower respiratory diseases; Z79.01 Long term (current) use of anticoagulants; Z98.51 Tubal ligation status; Z88.6 Allergy status to analgesic agent; Z88.5 Allergy status to narcotic agent; Z91.048 Other nonmedicinal substance allergy status; Z80.0 Family history of malignant neoplasm of digestive organs; Z80.3 Family history of malignant neoplasm of breast; Z82.49 Family history of ischemic heart disease and other diseases of the circulatory system; Z85.828 Personal history of other malignant neoplasm of skin
CPT/HCPCS: 36415; 80048; 85014; 85018; 85025; 85610; 88305; 88311; 94640; 94760; A9270-GY; C1776; J0690; J1100; J1170; J1200; J1240; J1650; J2250; J2405; J3010

== ENCOUNTER 2018-03-20 20:47 | Emergency (ER) | payer MEDICARE, BC ==
[2018-03-20 21:04] VITALS: BP 157/72
[2018-03-20] MEDS ORDERED: predniSONE TAB* 20 MG PO ONE (21:09)
--- NOTE | 2018-03-20 21:09 | UC ---
Eye Complaint HPI - HPI Summary HPI Summary: The patient is a 73 y/o F presenting to [facility] c/o bilateral perioribital and cheek pain, swelling, and redness starting at 18:30 today. She was putting in a medication from a new box she has been using for five years, as prescribed by Dr. Carlin, to relieve dry eyes and macular degeneration, when her symptoms began. The medication usually causes one minute of the burning sensation she was feeling after it is applied, but her symptoms persisted for much longer than normal. She flushed her eyes with cold water, used a damp washcloth, and took Benadryl to try to alleviate the pain to no relief. The pain is rated 9/10 in severity. There is no vision loss associated. She is allergic to atorvastatin , codeine, and morphine. She has hx of HTN, asthma, GERD. - History of Current Complaint Chief Complaint: UCEye Stated Complaint: EYE IRRITATION Time Seen by Provider: 03/20/18 21:03 Hx Obtained From: Patient Hx Last Menstrual Period: none Onset/Duration: Sudden Onset, Lasting Hours, Still Present Timing: Hours Severity Initially: Severe Severity Currently: Severe Pain Intensity: 9 Pain Scale Used: 0-10 Numeric Location of Injury: Periorbital Aggravating Factor(s): Eye Drops Alleviating Factor(s): Nothing Associated Signs And Symptoms: Positive: Swelling - Allergies/Home Medications Allergies/Adverse Reactions: Allergies Allergy/AdvReac Type Severity Reaction Status Date / Time Adhesive Tape Allergy Rash And Verified 10/09/16 09:17 Itching atorvastatin Allergy Headache Verified 03/20/18 21:07 codeine Allergy Headache Verified 03/20/18 21:07 morphine Allergy Headache Verified 03/20/18 21:08 PMH/Surg Hx/FS Hx/Imm Hx Cardiovascular History: Hypertension Respiratory History: Asthma GI/ History: Gastroesophageal Reflux - Surgical History Surgical History: Yes Surgery Procedure, Year, and Place: x2. osteomylitis. bunectomy. hammer toe. tendon replacement for drop toe r/t polio. right knee replacement october 2016 - Family History Known Family History: Positive: Hypertension - Social History Alcohol Use: None Alcohol Amount: 6 per year Substance Use Type: None Smoking Status (MU): Never Smoked Tobacco Have You Smoked in the Last Year: No - Immunization History Most Recent Influenza Vaccination: 2014 Most Recent Tetanus Shot: up to date Most Recent Pneumonia Vaccination: not yet Review of Systems Skin: Other - swelling and erythema around eyes and upper cheeks Eyes: Eye Redness - with pain, Other - NEGATIVE: vision loss All Other Systems Reviewed And Are Negative: Yes Physical Exam - Summary Physical Exam Summary: General: well-appearing, no pain distress Skin: warm, color reflects adequate perfusion, dry Head: normal Eyes: EOMI, PERLLA, Clear tearing bilaterally, no hyphema, no scleral injection , swelling and erythema in periorbital area and upper cheeks ENT: normal Neck: supple, nontender Respiratory: CTA, breath sounds present Cardiovascular: RRR Abdomen: soft, nontender Bowel: present Musculoskeletal: normal, strength/ROM intact Neurological: sensory/motor intact, A&O x3 Psychological: affect/mood appropriate Triage Information Reviewed: Yes Vital Signs: Initial Vital Signs Temp 98.5 F 03/20/18 20:58 Pulse 86 03/20/18 20:58 Resp 16 03/20/18 20:58 BP 157/72 03/20/18 20:58 Pulse Ox 98 03/20/18 20:58 Vital Signs Reviewed: Yes Eye Complaint Course/Dx - Course Course Of Treatment: Medications reviewed. Allergies noted. BP noted and advised to follow up with PCP. THE SEVERITY OF THE REACTION DECRESED IN CLINIC. F/U WITH OPHTHALMOLOGY, DR CARLIN, TOMORROW, 03/21/18. - Differential Dx/Diagnosis Provider Diagnoses: B/L EYE IRRITATION. HTN, Discharge - Sign-Out/Discharge Documenting (check all that apply): Patient Departure - Patient will be discharged home. - Discharge Plan Condition: Stable Disposition: HOME Patient Education Materials: Conjunctivitis (ED) Referrals: Victor Hugo Carlin MD [Medical Doctor] - Supriya Bowen MD [Primary Care Provider] - Additional Instructions: FOLLOW UP WITH DR CARLIN TOMORROW, 03/21/18. GET RECHECKED FOR ANY WORSENING OF YOUR CONDITION OR QUESTIONS OR CONCERNS. Your blood pressure was elevated during todays visit; please follow up with your primary care provider within a week for further evaluation. - Billing Disposition and Condition Condition: STABLE Disposition: Home Attestation Statement Scribe Attestation: This is soledad Tom documenting for attending Dr. Jasen Mehta MD. User Type: Provider with Scribe Provider Attestation: The documentation recorded by the scribe accurately reflects the service I personally performed and the decisions made by me.
[2018-03-20] MEDS ORDERED: Tobramycin 0.3% OPHTH.SOL* 5 ML BOT (regular eye drops) BOTH EYES ONE (21:11)
== END 2018-03-20 21:52 | disposition home or self-care (01) ==
LOC: UCEAST 20:47
DX: H57.8 Other specified disorders of eye and adnexa (principal); I10 Essential (primary) hypertension; Z96.651 Presence of right artificial knee joint; Z88.5 Allergy status to narcotic agent; Z88.8 Allergy status to other drugs, medicaments and biological substances; Z91.048 Other nonmedicinal substance allergy status
CPT/HCPCS: 99212; A9270-GY; G0463; J7512

== ENCOUNTER 2019-08-17 05:47 | Day surgery (SDC) | payer MEDICARE, BC ==
[~2019-08-17 05:47] MED LIST changes: +Buffered Lidocaine 1% SYRIN* 1 ML/SYRINGE INTRADERM ONE; -Buffered Lidocaine 1% SYRIN* 3 ML/SYR SYRINGE INTRADERM ONE; -Dexamethasone IV* 4 MG/ML 1 ML (4 MG) IV SLOW PU ONE; -Famotidine IV* 10 MG/ML 2 ML (20 mg) IV ONE
[2019-08-17] MEDS ORDERED: Lactated Ringers 1000 ML Bag* 1,000 ML IV SCH (06:00)
[2019-08-17] MEDS ORDERED: Buffered Lidocaine 1% SYRIN* 1 ML/SYRINGE INTRADERM ONE (06:29)
[2019-08-17] MEDS ORDERED: ceFAZolin 2 GM PREMIX in ORs 2 GM/50 ML BAG ONE (06:29)
[2019-08-17] MEDS ORDERED: Lidocaine 2% PF* 10 ML AMP ONE (07:08)
[2019-08-17] MEDS ORDERED: Bupivacaine 0.5%* 50 ML MDV VIAL ONE (07:08)
[2019-08-17] MEDS ORDERED: Propofol* 10 MG/ML 20 ML BTL ONE (07:35)
[2019-08-17] MEDS ORDERED: HYDROmorphone INJ1* 1 MG/ML SYRINGE ONE (07:35)
[2019-08-17] MEDS ORDERED: Ketorolac INJ* 30 MG/ML 1 ML VIAL ONE (08:24)
[2019-08-17] MEDS ORDERED: Dexamethasone IV* 4 MG/ML 1 ML (4 MG) ONE (08:24)
[2019-08-17] MEDS ORDERED: Ondansetron INJ* 2 MG/ML VIAL ONE (08:24)
[2019-08-17 10:01] VITALS: BP 148/89
--- NOTE | 2019-08-17 20:20 | OP ---
DATE OF OPERATION: 08/17/19 - [facility] DATE OF : 45 SURGEON: Carmelo Andrew MD POULTRY BREEDER: Darrell De Oliveira PA-C PRE-OP DIAGNOSIS: Polio residual with hammertoe deformities 2, 3, 4, and 5 toes left foot. POST-OP DIAGNOSIS: Polio residual with hammertoe deformities 2, 3, 4, and 5 toes left foot. OPERATIVE PROCEDURE: Excision of 2, 3, 4, and 5 metatarsal heads and percutaneous pinning of hammertoes. DESCRIPTION OF PROCEDURE: The patient was taken to the operating room where a longitudinal incision was made in the second and third webspace dorsally. We dissected medially and laterally to expose the dorsum of the metatarsal head and neck area. After a capsulotomy was performed, we transected the metatarsal necks with the micro sagittal saw and removed the metatarsal heads. Likewise, incision made between the fourth and fifth metatarsal heads dorsally with medial and lateral dissection to expose the fourth and fifth metatarsal heads and neck area. Both sequentially then excised with the sagittal saw. We then manipulated the PIP joints into a neutral position of 3, 4, and 5. With these, toes were then pinned longitudinally with 0.062 C-wires driven retrograde into the metatarsal shafts. We irrigated both the dorsal wounds and closing with Monocryl sutures, nylon for the skin, and a compression dressing plaster splint applied. [id number]/[facility] #: [id number] MTDRalf
== END 2019-08-17 10:08 | disposition home or self-care (01) ==
LOC: OR 05:47
PROVIDERS: ATTEND Orthopaedic Surgery
DX: M20.42 Other hammer toe(s) (acquired), left foot (principal); Z86.12 Personal history of poliomyelitis; I10 Essential (primary) hypertension; J45.909 Unspecified asthma, uncomplicated
CPT/HCPCS: 88304; 88311; C1776; J0690; J1100; J1170; J1885; J2001; J2405; J2704; J3490

== ENCOUNTER 2019-09-11 13:31 | Inpatient (IN) | payer MEDICARE, BC ==
--- NOTE | 2019-09-11 14:07 | ED ---
Lower Extremity - HPI Summary HPI Summary: 74-year-old female with a significant past medical history of right total knee arthroplasty by Dr. Collazo 2 years ago presents to the emergency department today complaining of a mechanical fall approximately 1 hour ago where she slipped on ice and landed on her right knee. Patient endorses 8 out of 10 pain which is made worse with movement of the right leg. Pt is unable to keep her leg straight and lift off the bed or bend the knee. There is no gross deformity noted of the knee. Patient is neurovascularly intact. Dorsalis pedis pulses 2+ bilaterally. Patient otherwise feels well and denies fever, chest pain, abdominal pain, shortness of breath, rash, pain with urination. Patient does not take anticoagulation. Family history and social history is noncontributory. Pt states she is unable to ambulate due to pain. - History of Current Complaint Chief Complaint: EDExtremityLower Stated Complaint: FALL/R KNEE PAIN PER EMS Time Seen by Provider: 09/11/19 13:53 Hx Obtained From: Patient Hx Last Menstrual Period: none Onset of Pain: Days Severity Initially: Moderate Severity Currently: Mild Pain Intensity: 5 Pain Scale Used: 0-10 Numeric Timing: Constant Location: Is Discrete @ - Right knee Associated Signs And Symptoms: Positive: Swelling. Negative: Redness, Bruising Aggravating Factor(s): Standing, Ambulation, Movement, Weight Bearing Alleviating Factor(s): Rest - Allergies/Home Medications Allergies/Adverse Reactions: Allergies Allergy/AdvReac Type Severity Reaction Status Date / Time Adhesive Tape Allergy Rash And Verified 09/11/19 13:51 Itching atorvastatin Allergy GI Upset Verified 09/11/19 13:51 codeine Allergy Headache Verified 09/11/19 13:51 latex Allergy Rash And Verified 09/11/19 13:51 Itching morphine Allergy Migraine Verified 09/11/19 13:51 Headache Metal Allergy Rash And Uncoded 09/11/19 13:51 Itching opiod analgesics Allergy Headache Uncoded 09/11/19 13:51 Home Medications: Home Medications Sulfamethox/Trimethoprim DS* [Bactrim DS 800/160 TAB*] 1 tab PO BID 09/11/19 [ History Confirmed 09/11/19] PMH/Surg Hx/FS Hx/Imm Hx Endocrine/Hematology History: Denies: Hx Diabetes, Hx Thyroid Disease Cardiovascular History: Reports: Hx Angina - burning in chest, right wrist and arm 1995, Hx Coronary Artery Disease - Angioplasty 1995, 1 Coronary Stent 1996, Hx Hypertension, Other Cardiovascular Problems/Disorders - elevated cholesterol , Intermediate coronary syndrome per H&P Respiratory History: Reports: Hx Asthma - with URI Denies: Hx Chronic Obstructive Pulmonary Disease (COPD), Hx Sleep Apnea, Other Respiratory Problems/Disorders GI History: Reports: Hx Gastroesophageal Reflux Disease - Omeprazole, Other GI Disorders - Diverticulosis Denies: Hx Ulcer History: Denies: Other Problems/Disorders Musculoskeletal History: Reports: Hx Arthritis - KNEES, HANDS, FEET, Right total knee replacement, Hx Tendonitis - Foot, Other Musculoskeletal History - POLIO HX Denies: Hx Bursitis Sensory History: Reports: Hx Cataracts - Bilateral cataract extractions, Hx Contacts or Glasses - Glasses, Hx Hearing Aid - Bilateral Opthamlomology History: Reports: Hx Cataracts - Bilateral cataract extractions, Hx Contacts or Glasses - Glasses Neurological History: Reports: Hx Migraine - IN THE PAST, HORMONAL or after anesthesia, Other Neuro Impairments/Disorders - HX POLIO-right leg affected- muscle spasms Psychiatric History: Reports: Hx Anxiety - was taking care of mother, brother and Denies: Other Psychiatric Issues/Disorders - Surgical History Surgery Procedure, Year, and Place: x2. Osteomylitis-left foot x3. Bunionectomy. Hammer toe. Tendon replacement for drop toe r/t polio x 2 Right leg. Right knee replacement October 2016 Hx Anesthesia Reactions: Yes - History of migraines with anesthesia prior to knee or foot surgery Infectious Disease History: No Infectious Disease History: Reports: History Other Infectious Disease - polio as a child Denies: Hx Clostridium Difficile, Hx Hepatitis, Hx Human Immunodeficiency Virus (HIV), Hx of Known/Suspected MRSA, Hx Shingles, Hx Tuberculosis, Hx Known/ Suspected VRE, Hx Known/Suspected VRSA, Traveled Outside the [place] in Last 30 Days - Family History Known Family History: Positive: Hypertension - Social History Alcohol Use: Rare Alcohol Amount: 6 glasses of wine per year Substance Use Type: Reports: None Smoking Status (MU): Never Smoked Tobacco Have You Smoked in the Last Year: No Review of Systems Constitutional: Negative Eyes: Negative ENT: Negative Cardiovascular: Negative Respiratory: Negative Gastrointestinal: Negative Genitourinary: Negative Positive: Arthralgia, Myalgia, Edema Skin: Negative Neurological: Negative Psychological: Normal All Other Systems Reviewed And Are Negative: Yes Physical Exam - Summary Physical Exam Summary: No obvious deformity of the right knee. There is a small abrasion superior to the patella. There is mild edema noted to the suprapatellar region. Patient is unable to bend the knee however this can be done passively. Dorsalis pedis pulses 2+ bilaterally. Patient is unable to do straight leg raise. Triage Information Reviewed: Yes Vital Signs On Initial Exam: Initial Vitals Temp Pulse Resp BP Pulse Ox 96.8 F 82 18 175/93 97 09/11/19 13:47 09/11/19 13:47 09/11/19 13:47 09/11/19 13:47 09/11/19 13:47 Vital Signs Reviewed: Yes Appearance: Positive: Well-Appearing, No Pain Distress, Well-Nourished Skin: Positive: Warm, Skin Color Reflects Adequate Perfusion Eyes: Positive: EOMI, LIOR ENT: Positive: Hearing grossly normal Respiratory/Lung Sounds: Positive: Clear to Auscultation, Breath Sounds Present Cardiovascular: Positive: RRR, S1, S2 Musculoskeletal: Negative: Strength/ROM Intact Neurological: Positive: Sensory/Motor Intact, Alert, Oriented to Person Place, Time, Unable to Assess Gait, Facial Symmetry, Speech Normal Psychiatric: Positive: Normal, Affect/Mood Appropriate AVPU Assessment: Alert Procedures - Sedation Patient Received Moderate/Deep Sedation with Procedure: No Diagnostics - Vital Signs Vital Signs Temp Pulse Resp BP Pulse Ox 09/11/19 13:55 86 149/84 97 09/11/19 13:53 83 95 09/11/19 13:47 96.8 F 82 18 175/93 97 - Laboratory Lab Statement: Any lab studies that have been ordered have been reviewed, and results considered in the medical decision making process. Lower Extremity Course/Dx - Course Course Of Treatment: Patient was evaluated in the emergency department today for right knee pain after a fall. Vitals noted. X-ray was done of the right knee which shows a distal femoral frank-hardware fracture with a moderate effusion. Patient was given 53 25 oxycodone/acetaminophen for pain. Patient was placed in knee immobilizer. Orthopedist, Dr. Palma, was consulted and suggested placing the patient in a knee immobilizer and admiting to [facility] as she will be nonweight bearing on the right extremity and she is already placed on nonweightbearing precautions the left extremity due to previous surgery. He also suggested obraining CT imaging of the knee for further evaluation. Dr. Carvajal, hospitalist was consulted at approximately 1900 for admission of the patient. Dr. Carvajal agreed to admit the patient for care due to frank hardware femoral fracture and inability to ambulate. - Diagnoses Differential Diagnosis/HQI/PQRI: Positive: Arthritis, Contusion, Dislocation, Fracture (Closed), Sprain, Strain Provider Diagnoses: Knee fracture, right, Inability to ambulate due to knee - Physician Notifications Discussed Care Of Patient With: Cristian Palma - obtain CT imaging of the knee and placed the patient in a knee immobilizer. He believed the patient should be admitted for inability to ambulate due to bilateral nonweightbearing orthopedic problems. Instructed by Provider To: Admit As Inpatient Discharge ED - Sign-Out/Discharge Documenting (check all that apply): Patient Departure - Discharge Plan Condition: Stable Disposition: ADMITTED TO [facility] Referrals: Supriya Bowen MD [Primary Care Provider] - - Billing Disposition and Condition Condition: STABLE Disposition: Admitted to [facility]
--- OUTSIDE RECORDS SUMMARY | 2019-09-11 14:43 | XMS REPORT | Continuity of Care Document ---
:1945 External Reference #:[id number] Author Name Carmelo Andrew M.D. (transmitted by agent of provider Maria Ines Byrnes) Address [address] [place] [address] [place] [address] Care Team Providers Name Role Phone Supriya Bowen MD - Internal Medicine Care Team Information Branch Lending Officer Problems Active Problems Provider Date Localized, primary osteoarthritis Emily Collazo M.D. Onset: 04/23/2016 Closed fracture of lateral malleolus Emily Collazo M.D. Onset: 04/23/2016 Arthroplasty of knee Emily Collazo M.D. Onset: 10/22/2016 Social History Type Date Description Comments Sex Unknown Tobacco Use Start: Unknown Patient has never smoked Smoking Status Reviewed: 09/08/19 Patient has never smoked Exercise Type/Frequency Exercises sporadically Allergies, Adverse Reactions, Alerts Active Allergies Reaction Severity Comments Date Opiod Analgesics 04/23/2016 Atorvastatin 04/23/2016 Tape silk or adhesive 04/23/2016 Morphine 04/23/2016 Restasis 08/04/2019 Medications Active Medications SIG Qnty Indications Ordering Date Provider Sulfamethoxazole/Trime 1 tab by mouth 14tabs M20.42 Talha Simpson, 2019 thoprim DS twice daily x 7 800-160mg days Tablets Bactrim DS 1 by mouth twice 28tabs M20.42 Carmelo Andrew, 08/27/2019 800-160mg a day M.D. Tablets Amoxicillin take 4 tablets by 4tabs Z96.651 Emily Collazo, 12/28/2016 500mg Tablets mouth 1 hour M.D. before dental procedure Vitamin D-3 1 by mouth every 90caps Emily Collazo, 10/03/2016 1000Unit day M.D. Capsules Nitroglycerin 1 under tounge, Unknown 0.4mg may repeat 3x prn Tablets Sub Omeprazole 1 by mouth every Unknown 20mg Capsules day Rosuvastatin Calcium once daily Unknown 40mg Tablets Albuterol HFA prn Unknown Bisoprolol 1 by mouth every Unknown Fumarate/Hydrochloroth day iazide 2.5-6.25mg Tablets Budesonide-Formoterol twice daily Unknown Fumarate 160-4.5 Montelukast Sodium 1 by mouth every Unknown 10mg day Tablets Preservision Areds 2 Unknown Ezetimibe 1 by mouth every Unknown 10mg Tablets day History Medications Tramadol HCL 1 tablet every 3 32tabs Talha Simpson MD 08/17/2019 - 50mg hours as needed 08/26/2019 Tablets for pain Medications Administered in Office Medication SIG Qnty Indications Ordering Provider Date Depomedrol 40MG Emily Collazo M.D. 04/23/2016 Injection Immunizations Description No Information Available Vital Signs Date Vital Result Comment 09/08/2019 8:25am Height 64.5 inches 5'4.50" Weight 170.00 lb Heart Rate 89 /min BP Systolic 128 mmHg BP Diastolic 68 mmHg Respiratory Rate 18 /min Body Temperature 97.6 F Pain Level 1 O2 % BldC Oximetry 98 % BMI (Body Mass Index) 28.7 kg/m2 09/01/2019 8:41am Height 64.5 inches 5'4.50" Weight 170.00 lb Heart Rate 86 /min BP Systolic 118 mmHg BP Diastolic 76 mmHg Respiratory Rate 12 /min Body Temperature 97.2 F Pain Level 1 BMI (Body Mass Index) 28.7 kg/m2 Results Test Acquired Date Facility Test Result H/L Range Note Surgical 08/17/2019 [facility] Surgical SEE RESULT [address] [place] [address] [phone] PDFReport SEE IMAGE 1 SEE RESULT BELOW Name: JAMILA TURCIOS : [address]: Carmelo Andrew MD Acct: [id number] Unit: [id number] AGE: 74 Location: OR Re08/17/19 SEX: F Status: DEP SDC SPEC: [id number] JOSE LUIS: 08/17/19- SUBM DR: Carmelo Andrew MD REQ: [id number] RECD: 08/17/19 STATUS: SOUT _ ORDERED: Decal, LEVEL 3 FINAL DIAGNOSIS Metatarsal heads, left foot, arthroplasty: -- Severe degenerative osteoarthritic changes. PRE-OPERATIVE DIAGNOSIS Other chronic osteomyelitis, left ankle and foot GROSS DESCRIPTION The specimen is received in formalin labeled, Metatarsal Heads of Left Foot, and consists of five summers-pink irregular focally shaggy bone fragments aggregating 4.0 x 3.1 x 1.5 cm. A few of the fragments are partially surfaced by a glistening smooth summers-pink articular surface. Dental Scheduler sections, one cassette following decalcification. Signed by and Reported on: Jerrod Jose MD 1607 END OF REPORT DEPARTMENT OF PATHOLOGY, [address] [place] [address] Jerrod Jose M.D. Director [facility] # [id number] Procedures Date Code Description Status 08/17/2019 Correction Hammertoe Completed 08/17/2019 Correction Hammertoe Completed 08/17/2019 Correction Hammertoe Completed 08/17/201969662 Correction Hammertoe Completed 08/17/201930709 Correction Hammertoe Completed 08/17/201903316 Correction Hammertoe Completed 08/17/201903128 Correction Hammertoe Completed 08/17/2019 80175 Correction Hammertoe Completed Medical Devices Description No Information Available Encounters Type Date Location Provider Dx Diagnosis Office Visit 06/30/2019 [facility] Kathleen [email or web address] Other chronic 10:00a at [place] [facility] osteomyelitis, left ankle and foot M20.42 Other hammer toe(s) (acquired), left foot Assessments Date Code Description Provider 09/08/2019 M20.42 Other hammer toe(s) (acquired), left Carmelo Andrew M.D. foot 09/08/2019 Z47.89 Encounter for other orthopedic Carmelo Andrew M.D. aftercare 09/01/2019 M20.42 Other hammer toe(s) (acquired), left Carmelo Andrew M.D. foot 08/27/2019 M20.42 Other hammer toe(s) (acquired), left Carmelo Andrew M.D. foot 08/17/2019 M20.42 Other hammer toe(s) (acquired), left aDrrell Diallo, WINIFRED-C foot 08/17/2019 M20.42 Other hammer toe(s) (acquired), left Carmelo Andrew M.D. foot 08/04/2019 M20.42 Other hammer toe(s) (acquired), left Carmelo Andrew M.D. foot 06/30/2019 M86.672 Other chronic osteomyelitis, left Carmelo Andrew M.D. ankle and foot 06/30/2019 M20.42 Other hammer toe(s) (acquired), left Carmelo Andrew M.D. foot Plan of Treatment 09/08/2019 - Carmelo Andrew M.D.M20.42 Other hammer toe(s) (acquired), left footNew Medication:Sulfamethoxazole/Trimethoprim DS 800-160 mg - 1 tab by mouth twice daily x 7 daysFollow up:Follow up: 1 weekZ47.89 Encounter for other orthopedic aftercare Functional Status Description No Information Available Mental Status Description No Information Available Referrals Description No Information Available
--- OUTSIDE RECORDS SUMMARY | 2019-09-11 14:43 | XMS REPORT | Continuity of Care Document ---
:1945 External Reference #:[id number] Author Name Carmelo Andrew M.D. 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 Onset: 04/23/2016 Closed fracture of lateral malleolus Emily Collazo M.D. Onset: 04/23/2016 Arthroplasty of knee Emily Collazo M.D. Onset: 10/22/2016 Social History Type Date Description Comments Sex Unknown Tobacco Use Start: Unknown Patient has never smoked Smoking Status Reviewed: 09/01/19 Patient has never smoked Exercise Type/Frequency Exercises sporadically Allergies, Adverse Reactions, Alerts Active Allergies Reaction Severity Comments Date Opiod Analgesics 04/23/2016 Atorvastatin 04/23/2016 Tape silk or adhesive 04/23/2016 Morphine 04/23/2016 Restasis 08/04/2019 Medications Active Medications SIG Qnty Indications Ordering Date Provider Bactrim DS 1 by mouth twice 28tabs [...] Available Vital Signs Date Vital Result Comment 09/01/2019 8:41am Height 64.5 inches 5'4.50" Weight 170.00 lb Heart Rate 86 /min BP Systolic 118 mmHg BP Diastolic 76 mmHg Respiratory Rate 12 /min Body Temperature 97.2 F Pain Level 1 BMI (Body Mass Index) 28.7 kg/m2 08/27/2019 9:46am Height 63.5 inches 5'3.50" Heart Rate 89 /min BP Systolic 144 mmHg BP Diastolic 80 mmHg Respiratory Rate 20 /min Body Temperature 98.8 F Pain Level 3 Results Test Acquired Date Facility Test Result H/L Range Note Surgical 08/17/2019 [facility] Surgical SEE RESULT [address] [place] [address] [phone] PDFReport SEE IMAGE 1 SEE RESULT BELOW Name: JAMILA TURCIOS Nando : [address]: Carmelo Andrew MD Acct: [id number] Unit: [id number] AGE: 74 Location: OR Re08/17/19 SEX: F Status: DEP SDC SPEC: [id number] JOSE LUIS: 08/17/19- [facility] DR: Carmelo Andrew MD REQ: [id number] RECD: 08/17/19 STATUS: SOUT _ ORDERED: Decal, [...] by a glistening smooth summers-pink articular surface. 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 Signed by and Reported on: Jerrod Jose MD 1607 END OF REPORT DEPARTMENT OF PATHOLOGY, [address] [place] [address] Jerrod Jose M.D. Director [facility] # [id number] Procedures Date Code Description Status 08/17/2019 00251 Correction Philipp Completed 08/17/201998763 Correction Philipp Completed 08/17/201910658 Correction Hammertoe Completed 08/17/2019 14244 Correction Hammertoe Completed 08/17/2019 32216 Correction Hammertoe Completed 08/17/2019 50296 Correction Hammertoe Completed 08/17/2019 77259 Correction Hammertoe Completed 08/17/2019 36852 Correction Hammertoe Completed Medical Devices Description No Information Available Encounters Type Date Location Provider Dx Diagnosis Office Visit 06/30/2019 [facility] Nicolás [id number] Other chronic 10:00a at [place] [facility] osteomyelitis, left ankle and foot M20.42 Other hammer toe(s) (acquired), left foot Assessments Date Code Description Provider 09/01/2019 M20.42 Other hammer toe(s) (acquired), left Carmelo Andrew M.D. foot 08/27/2019 M20.42 Other hammer toe(s) (acquired), left Carmelo Andrew M.D. foot 08/17/2019 M20.42 Other hammer toe(s) (acquired), left Darrell Diallo RPA-Renée foot 08/17/2019 M20.42 Other hammer toe(s) (acquired), left Carmelo Andrew M.D. foot 08/04/2019 M20.42 Other hammer toe(s) (acquired), left Carmelo Andrew M.D. foot 06/30/2019 M86.672 Other chronic osteomyelitis, left Carmelo Andrew M.D. ankle and foot 06/30/2019 M20.42 Other hammer toe(s) (acquired), left Carmelo Andrew M.D. foot Plan of Treatment 09/01/2019 - Carmelo Andrew M.D.M20.42 Other hammer toe(s) (acquired), left footFollow up:1 week Functional Status Description No Information Available Mental Status Description No Information Available Referrals Description No Information Available
--- OUTSIDE RECORDS SUMMARY | 2019-09-11 14:43 | XMS REPORT | Continuity of Care Document ---
:1945 External Reference #:[id number] Author Name Carmelo Andrew M.D. 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 Onset: 04/23/2016 Closed fracture of lateral malleolus Emily Collazo M.D. Onset: 04/23/2016 Arthroplasty of knee Emily Collazo M.D. Onset: 10/22/2016 Social History Type Date Description Comments Sex Unknown Tobacco Use Start: Unknown Patient has never smoked Smoking Status Reviewed: 08/04/19 Patient has never smoked Exercise Type/Frequency Exercises sporadically Allergies, Adverse Reactions, Alerts Active Allergies Reaction Severity Comments Date Opiod Analgesics 04/23/2016 Atorvastatin 04/23/2016 Tape silk or adhesive 04/23/2016 Morphine 04/23/2016 Restasis 08/04/2019 Medications Active Medications SIG Qnty Indications Ordering Date Provider Amoxicillin take 4 tablets by 4tabs Z96.651 Emily Collazo, 12/28/2016 500mg Tablets mouth 1 hour M.D. before dental procedure Vitamin D-3 1 by mouth every 90caps Emily Collazo, 10/03/2016 1000Unit day M.D. Capsules Nitroglycerin 1 under tounge, Unknown 0.4mg may repeat 3x prn Tablets Sub Omeprazole 1 by mouth every Unknown 20mg Capsules day DR Rosuvastatin Calcium once daily Unknown 40mg Tablets Albuterol HFA prn Unknown Bisoprolol 1 by mouth every Unknown Fumarate/Hydrochloroth day iazide 2.5-6.25mg Tablets Budesonide-Formoterol twice daily Unknown Fumarate 160-4.5 Montelukast Sodium 1 by mouth every Unknown 10mg day Tablets Preservision Areds 2 Unknown Ezetimibe 1 by mouth every Unknown 10mg Tablets day Medications Administered in Office Medication SIG Qnty Indications Ordering Provider Date Depomedrol 40MG Emily Collazo M.D. 04/23/2016 Injection Immunizations Description No Information Available Vital Signs Date Vital Result Comment 08/04/2019 9:50am Height 63.5 inches 5'3.50" Weight 175.00 lb Heart Rate 80 /min BP Systolic 128 mmHg BP Diastolic 78 mmHg Respiratory Rate 18 /min Body Temperature 98.2 F O2 % BldC Oximetry 98 % BMI (Body Mass Index) 30.5 kg/m2 06/30/2019 10:13am Height 64.5 inches 5'4.50" Weight 174.75 lb Heart Rate 74 /min BP Systolic 144 mmHg BP Diastolic 82 mmHg Respiratory Rate 17 /min Body Temperature 97.5 F Pain Level 5 BMI (Body Mass Index) 29.5 kg/m2 Results Description No Information Available Procedures Description No Information Available Medical Devices Description No Information Available Encounters Type Date Location Provider Dx Diagnosis Office Visit 06/30/2019 [facility] Nicol[facility] [id number] [facility], [facility] M20.42 Other hammer toe(s) (acquired), left foot Assessments Date Code Description Provider 08/04/2019 M20.42 Other hammer toe(s) (acquired), left foot Carmelo Andrew M.D. 06/30/2019 M86.672 Other chronic osteomyelitis, left ankle and Carmelo Andrew M.D. foot 06/30/2019 M20.42 Other hammer toe(s) (acquired), left foot Carmelo Andrew M.D. Plan of Treatment Future Appointment(s):08/27/2019 9:30 am - Carmelo Andrew M.D. at [facility]08/17/2019 7:45 am - SASHA Delarosa at [facility]08/17/2019 7:45 am - Carmelo Andrew M.D. at [facility] at [place]/04/2019 - Carmelo Andrew M.D.M20.42 Other hammer toe(s) (acquired), left footFollow up:10-14 days postop Functional Status Description No Information Available Mental Status Description No Information Available Referrals Description No Information Available
--- OUTSIDE RECORDS SUMMARY | 2019-09-11 14:43 | XMS REPORT | Continuity of Care Document ---
:1945 External Reference #:[id number] Author Name Carmelo Andrew M.D. 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 Onset: 04/23/2016 Closed fracture of lateral malleolus Emily Collazo M.D. Onset: 04/23/2016 Arthroplasty of knee Emily Collazo M.D. Onset: 10/22/2016 Social History Type Date Description Comments Sex Unknown Tobacco Use Start: Unknown Patient has never smoked Smoking Status Reviewed: 06/30/19 Patient has never smoked Exercise Type/Frequency Exercises sporadically Allergies, Adverse Reactions, Alerts Active Allergies Reaction Severity Comments Date Opiod Analgesics 04/23/2016 Atorvastatin 04/23/2016 Tape silk or adhesive 04/23/2016 Morphine 04/23/2016 Medications Active Medications SIG Qnty Indications Ordering [...] by mouth every Unknown 10mg day Tablets Restasis Unknown 0.05% Emulsion Preservision Areds 2 Unknown Ezetimibe 1 by mouth every Unknown 10mg Tablets day Medications Administered in Office Medication SIG Qnty Indications Ordering Provider Date Depomedrol 40MG Emily Collazo M.D. 04/23/2016 Injection Immunizations Description No Information Available Vital Signs Date Vital Result Comment 06/30/2019 10:13am Height 64.5 inches 5'4.50" Weight 174.75 lb Heart Rate 74 /min BP Systolic 144 mmHg BP Diastolic 82 mmHg Respiratory Rate 17 /min Body Temperature 97.5 F Pain Level 5 BMI (Body Mass Index) 29.5 kg/m2 12/28/2016 1:18pm Height 64.5 inches 5'4.50" Weight 152.00 lb Heart Rate 82 /min BP Systolic 149 mmHg BP Diastolic 79 mmHg BMI (Body Mass Index) 25.7 kg/m2 Results Description No Information Available Procedures Description No Information Available Medical Devices Description No Information Available Encounters Type Date Location Provider Dx Diagnosis Office Visit 06/30/2019 [facility] Kathleen Boogie.672 [facility], [facility] M20.42 Other hammer toe(s) (acquired), left foot Assessments Date Code Description Provider 06/30/2019 [id number] Other chronic osteomyelitis, left ankle and Carmelo Andrew M.D. foot 06/30/2019 M20.42 Other hammer toe(s) (acquired), left foot Carmelo Andrew M.D. Plan of Treatment Future Appointment(s):08/17/2019 7:30 am - Carmelo Andrew M.D. at [facility] at [place]408/04/2019 9:30 am - Carmelo Andrew M.D. at [facility]06/30/2019 - Carmelo Andrew M.D.M86.672 Other chronic osteomyelitis, left ankle and footFollow up:As dznjueQ48.42 Other hammer toe(s) (acquired), left foot Functional Status Description No Information Available Mental Status Description No Information Available Referrals Description No Information Available
--- OUTSIDE RECORDS SUMMARY | 2019-09-11 14:43 | XMS REPORT | Summary of Care ---
:1945 Author Organization [facility] Address [address] [place] [address] Care Team Providers Name Role Phone Supriay Bowen Primary Care Provider Reason for Visit Reason Comments Pre-op Exam Foot surgery Follow Up Encounter Details Date Type Department Care Team Description 07/21/2019 Office Visit [facility] Supriya Bowen MD Preop examination (Primary Dx); Medicine [address] Gastroesophageal reflux disease without esophagitis; [address] [place] [address] Essential hypertension; [place], [place] [id number] Coronary artery disease involving [place] coronary artery of [place] heart without angina pectoris; [phone] Moderate persistent asthma without complication (Fax) Allergies Active Allergy Reactions Severity Noted Date Comments Atorvastatin Calcium GI Reaction 05/04/2008 Doxy GI Reaction 11/13/2017 Morphine PROJECT LEADER Reaction 12/14/2014 Severe migraine Opioid Analgesics Nausea Only 12/24/2003 Tape: Silk Or Adhesive Other 03/14/2012 Reddened and sore with prolonged use documented as of this encounter (statuses as of 07/21/2019) Medications Medication Sig Dispensed Refills Start End Date Status Date ASPIRIN 81 MG PO Take 81 mg by 0 Active TABS mouth DAILY. Vitamin D 1000 UNIT Take 2,000 0 Active Oral Tab Units by mouth DAILY. Multiple Take 1 Tab by 0 Active Vitamins-Minerals mouth TWICE (PRESERVISION AREDS DAILY. 2 PO) nitroglycerin Place 1 Tab 3 Bottle 3 Active (NITROSTAT) 0.4 MG under tongue 8 Sublingual SL Tab EVERY FIVE MINUTES NEEDED for chest pain. budesonide-formotero Take 2 INHL by 3 Inhaler 3 Active l fumarate inhalation TWO 8 (SYMBICORT) 160-4.5 TIMES DAILY MCG/ACT Inhalation NEEDED AerosolIndications: (cough). Moderate persistent asthma without complication albuterol HFA Take 2 Puffs 3 Each 3 Active (VENTOLIN) 108 (90 by inhalation 8 Base) MCG/ACT EVERY SIX Inhalation Aero HOURS SolnIndications: NEEDED (SOB). Mild intermittent asthma with acute exacerbation Omeprazole 40 MG TAKE 1 CAPSULE 90 Cap 3 Active Oral CAPSULE DELAYED DAILY 8 RELEASEIndications: Gastroesophageal reflux disease without esophagitis ALPRAZolam (XANAX) Take 1 Tab by 12 Tab 0 Active 0.25 MG Oral Tab mouth EVERY 8 SIX HOURS NEEDED for Anxiety or Sleep/Insomnia . Max Daily Amount: 1 mg. fexofenadine Take 1 Tab by 30 Tab 0 Active (RODGER ALLERGY) mouth DAILY. 8 180 MG Oral Tab ezetimibe (ZETIA) 10 TAKE 1 TABLET 90 Tab 3 Active MG Oral DAILY 9 TabIndications: Coronary artery disease involving [place] coronary artery of [place] heart without angina pectoris sertraline (ZOLOFT) Take 1 Tab by 90 Tab 3 Active 50 MG Oral mouth DAILY. 9 TabIndications: Depression, unspecified depression type Rosuvastatin Calcium Take 1 Tab by 90 Tab 3 Active (CRESTOR) 40 MG Oral mouth DAILY. 9 TabIndications: Coronary artery disease involving [place] coronary artery of [place] heart without angina pectoris B Complex Vitamins Take by 0 Active (VITAMIN B COMPLEX mouth. PO) montelukast Take 1 Tab by 90 Tab 3 Active (SINGULAIR) 10 MG mouth DAILY. 9 Oral Tab bisoprolol-hydrochlo Take 1 Tab by 90 Tab 3 Active rothiazide (ZIAC) mouth DAILY. 9 5-6.25 MG Oral TabIndications: Essential hypertension diclofenac 2 g by Topical 1 Tube 3 05/31/201 12/17/20 Discontinued (VOLTAREN) 1 % route FOUR 9 19 Transdermal TIMES DAILY GelIndications: NEEDED (foot Plantar fasciitis pain). bisoprolol-hydrochlo Take 2 Tabs by 180 Tab 3 07/21/20 Discontinued rothiazide (ZIAC) mouth DAILY. 9 19 (Reorder) 5-6.25 MG Oral TabIndications: Essential hypertension documented as of this encounter (statuses as of 07/21/2019) Active Problems Problem Noted Date Diverticulosis 03/26/2013 Overview: Few - in sigmoid- 03/17; No polyps in the record as far back as 2002 Chest pain 03/20/2012 Abnormal cardiovascular stress test 03/20/2012 Intermediate coronary syndrome 03/31/2008 Vitamin D deficiency 11/06/2007 CAD (coronary artery disease) 10/31/2007 Overview: 05/20/09 echocardiogram: FINAL IMPRESSION: Normal LV size and wall thickness. Normal LV systolic function with no regional wall motion abnormalities and estimated LV EF 55-60%. Normal LV diastolic function. Normal LA, RA and RV size and function. Structurally normal aortic, mitral, tricuspid and pulmonic valves with no significant stenosis or regurgitation. No pulmonary hypertension. No pericardial effusion. In comparison with report of resting images from [facility] dated 12/27/2003, there is no significant interval change. 03/31/08 cardiac catherization: SUMMARY: 1. No evidence of significant coronary disease. 2. Normal left ventricular systolic function. 04/12/98 cardiac catherization (Dr. Pedro) CONCLUSION: Mild in-stent restenosis of the left anterior descending, insufficient to likely produce flow limitation, although the lesion is relatively lengthy. No significant restenosis of ramus. Postpolio syndrome 10/31/2007 Asthma 10/31/2007 Hyperlipidemia 10/31/2007 Overview: Lab Results Lab Results Value Date/Time CHOL 179 11/10/2012726 TRIG 149 11/10/2012726 HDL 52 11/10/2012726 LDL 97 11/10/2012726 LDLHDLRATIO 1.9 11/10/2012726 CHOLHDLRATIO 3.4 11/10/2012726 Hypertension 10/31/2007 Migraines 10/31/2007 Osteoarthritis 10/31/2007 S/P PTCA (percutaneous transluminal coronary angioplasty) 10/31/2007 Overview: PCI of proximal LAD in 1996. cardiac catheterization in 2007: mild in-stent stenosis, unchanged from 2003 Tachycardia, unspecified 10/31/2007 Encounter for allergy testing Overview: Replaced inactive diagnosis documented as of this encounter (statuses as of 07/21/2019) Immunizations Name Administration Dates Next Due Hep A / Hep B Combined Vaccine (Adult) 11/28/2018, 06/02/2018 Hepatitis B Vaccine Adult 07/03/2018 Influenza (IM) Preservative Free 05/07/2013, 04/19/2013, 05/06/2012, 05/25/2008 Influenza Vaccine High Dose 05/04/2019, 04/21/2018, 04/04/2017, 04/19/2016, 04/27/2015, 04/29/2014 Influenza Vaccine Whole 05/17/2009, 05/26/2007 PNEUMOCOCCAL POLYSACCHARIDE VACCINE 10/03/2017, 08/07/2005 Pneumococcal Conjugate(13 Valent) 07/19/2016, 09/29/2014 TDAP Vaccine 04/07/2010 ZOSTER (SHINGRIX) VACCINE 05/23/2019 ZOSTER (ZOSTAVAX) VACCINE 2009 documented as of this encounter Social History Tobacco Use Types Packs/Day Years Used Date Never Smoker 0.25 0.5 Quit: 12/14/1964 Smokeless Tobacco: Never Used Alcohol Use Drinks/Week oz/Week Comments No 0 Standard drinks or equivalent 0.0 Very few times per year Sex Assigned at Date Recorded Not on file Job Start Date Occupation Industry Not on file Not on file Not on file Travel History Travel Start Travel End No recent travel history available. documented as of this encounter Last Filed Vital Signs Vital Sign Reading Time Taken Comments Blood Pressure 138/82 07/21/2019 9:44 AM EST Pulse 90 07/21/2019 9:44 AM EST Temperature - - Respiratory Rate - - Oxygen Saturation 97% 07/21/2019 9:44 AM EST Inhaled Oxygen Concentration - - Weight 81.1 kg (178 lb 12.8 oz) 07/21/2019 9:44 AM EST Height 163.8 cm (5' 4.5") 07/21/2019 9:44 AM EST Body Mass Index 30.22 07/21/2019 9:44 AM EST documented in this encounter Patient Instructions Patient InstructionsCrepeSupriya flood MD - 07/21/2019 9:40 AM ESTFor the surgery - Hold aspirin or any NSAID - Ibuprofen / aleve - 1 week before surgery - documented in this encounter Progress Notes Supriya Bowen MD - 07/21/2019 9:40 AM EST NAME:Jamila Turcios [birth year] ENC Date: 07/21/2019 CC: Chief Complaint Patient presents with Pre-op Exam Foot surgery Follow Up Jamila Turcios is a 74-y.o. 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 since that time and has stabilized on her current regimen - Patient had atypical complaints of occasional chest pressure for which she underwent a nuclear medicine stress test (05/23) and was negative for ischemia Also has stable asthma for which she takes inhalers when necessary- She is active and can walk without problem - has been shovelling in this weather Presently denies any chest pressure/ shortness of breath / cough / palpitations No history of clotting or bruising problem Had knee replacement without any anesthietic problem -prior to that had migraines with anesthesia Current Outpatient Medications Medication Sig albuterol HFA (VENTOLIN) 108 (90 Base) MCG/ACT Inhalation Aero Soln Take 2 Puffs by inhalation EVERY SIX HOURS NEEDED (SOB). ALPRAZolam (XANAX) 0.25 MG Oral Tab Take 1 Tab by mouth EVERY SIX HOURS NEEDED for Anxiety or Sleep/Insomnia . Max Daily Amount: 1 mg. ASPIRIN 81 MG PO TABS Take 81 mg by mouth DAILY. B Complex Vitamins (VITAMIN B COMPLEX PO) Take by mouth. bisoprolol-hydrochlorothiazide (ZIAC) 5-6.25 MG Oral Tab Take 1 Tab by mouth DAILY. budesonide-formoterol fumarate (SYMBICORT) 160-4.5 MCG/ACT Inhalation Aerosol Take 2 INHL by inhalation TWO TIMES DAILY NEEDED (cough). ezetimibe (ZETIA) 10 MG Oral Tab TAKE 1 TABLET DAILY fexofenadine (RODGER ALLERGY) 180 MG Oral Tab Take 1 Tab by mouth DAILY. montelukast (SINGULAIR) 10 MG Oral Tab Take 1 Tab by mouth DAILY. Multiple Vitamins-Minerals (PRESERVISION AREDS 2 PO) Take 1 Tab by mouth TWICE DAILY. nitroglycerin (NITROSTAT) 0.4 MG Sublingual SL Tab Place 1 Tab under tongue EVERY FIVE MINUTES NEEDED for chest pain. Omeprazole 40 MG Oral CAPSULE DELAYED RELEASE TAKE 1 CAPSULE DAILY Rosuvastatin Calcium (CRESTOR) 40 MG Oral Tab Take 1 Tab by mouth DAILY. sertraline (ZOLOFT) 50 MG Oral Tab Take 1 Tab by mouth DAILY. Vitamin D 1000 UNIT Oral Tab Take 2,000 Units by mouth DAILY. No current facility-administered medications for this visit. Patient Active Problem List Diagnosis Date Noted Diverticulosis 03/26/2013 Few - in sigmoid- 03/17; No polyps in the record as far back as 2002 Chest pain 03/20/2012 Abnormal cardiovascular stress test 03/20/2012 Encounter for allergy testing Replaced inactive diagnosis Intermediate coronary syndrome (HCC) 03/31/2008 Vitamin D deficiency 11/06/2007 CAD (coronary artery disease) 10/31/2007 05/20/09 echocardiogram: FINAL IMPRESSION: Normal LV size and wall thickness. Normal LV systolic function with no regional wall motion abnormalities and estimated LV EF 55-60%. Normal LV diastolic function. Normal LA, RA and RV size and function. Structurally normal aortic, mitral, tricuspid and pulmonic valves with no significant stenosis or regurgitation. No pulmonary hypertension. No pericardial effusion. In comparison with report of resting images from [facility] dated 12/27/2003, there is no significant interval change. 03/31/08 cardiac catherization: SUMMARY: 1. No evidence of significant coronary disease. 2. Normal left ventricular systolic function. 04/12/98 cardiac catherization (Dr. Pedro) CONCLUSION: Mild in-stent restenosis of the left anterior descending, insufficient to likely produce flow limitation, although the lesion is relatively lengthy. No significant restenosis of ramus. Postpolio syndrome 10/31/2007 Asthma 10/31/2007 Hyperlipidemia 10/31/2007 Lab Results Lab Results Value Date/Time CHOL 179 11/10/2012726 TRIG 149 11/10/2012726 HDL 52 11/10/2012726 LDL 97 11/10/2012726 LDLHDLRATIO 1.9 11/10/2012726 CHOLHDLRATIO 3.4 11/10/2012726 Hypertension 10/31/2007 Migraines 10/31/2007 Osteoarthritis 10/31/2007 S/P PTCA (percutaneous transluminal coronary angioplasty) 10/31/2007 PCI of proximal LAD in 1996. cardiac catheterization in 2007: mild in-stent stenosis, unchanged from 2002 Tachycardia, unspecified 10/31/2007 Family History Problem Relation Age of Onset Asthma Mother Breast Cancer Mother 75 Respiratory Mother COPD GI Mother Chrons Heart Father CVA Breast Cancer Sister 69 Cancer Brother throat MS Sister COPD Brother Bipolar Disorder Brother Cancer Brother bladder Polio Brother Breast Cancer Paternal Grandmother 75 No cardiopulmonary symptoms No upper or lower GI complaints No urinary tract symptoms. No bruising/ bleeding. No neurological complaints . No insomnia.+ . Social History Tobacco Use Smoking status: Never Smoker Smokeless tobacco: Never Used Substance Use Topics Alcohol use: No Alcohol/week: 0.0 standard drinks Comment: Very few times per year Drug use: No OBJECTIVE: BP 138/82 | Pulse 90 | Ht 5' 4.5" (1.638 m) | Wt 178 lb 12.8 oz (81.1 kg) | SpO2 97% | BMI 30.22 kg/m . Heent neg Neck no JVD, thyromegaly or bruit Lungs Clear CV rrr Abd soft, nontender, no organomegaly Ext no edema; no lesions; pulses intact Neuro: intellect intact ; motor including gait unremarkable A/P ICD-9-CM ICD-10-CM 1. Preop examination V72.84 Z01.818 AMBULATORY 12 LEAD EKG (GLOBAL) CBC WITH DIFFERENTIAL BASIC METABOLIC PANEL 2. Gastroesophageal reflux disease without esophagitis 530.81 K21.9 3. Essential hypertension 401.9 I10 bisoprolol-hydrochlorothiazide (ZIAC) 5- 6.25 MG Oral Tab 4. Coronary artery disease involving [place] coronary artery of [place] heart without angina pectoris 414.01 I25.10 5. Moderate persistent asthma without complication 493.90 J45.40 Patient Instructions For the surgery - Hold aspirin or any NSAID - Ibuprofen / aleve - 1 week before surgery - Patient is a good candidate for planned surgery- no further testing or change in medicinal regimen necessary Patient has one risk factor aka the RCRI - Her risk of a cardiovascular complication is ~ 1% AUTHOR: Supriya Bowen MD 10:39 07/21/2019 documented in this encounter Plan of Treatment Date Type Specialty Care Team Description 12/17/2019 Office Visit Cardiology Varun Fox MD [address] [place] [address] [phone] Name Type Priority Associated Diagnoses Order Schedule AMBULATORY 12 LEAD EKG EKG Routine Preop examination Ordered: 07/21/2019 (GLOBAL) CBC WITH DIFFERENTIAL Lab Routine Preop examination Expected: 07/21/2019 (Approximate), Expires: 01/17/2020 BASIC METABOLIC PANEL Lab Routine Preop examination Expected: 07/21/2019 (Approximate), Expires: 01/17/2020 Health Maintenance Due Date Last Done Comments MEDICARE ANNUAL WELLNESS 10/04/2016 10/05/2015, 10/05/2015, VISIT 09/29/2014, Additional history exists DEPRESSION SCREENING 01/03/2020 01/02/2019 FALL RISK ASSESSMENT 01/03/2020 01/02/2019, 01/02/2019 MAMMOGRAM (SCREENING) 01/09/2020 01/08/2019, 09/24/2017, 09/03/2016, Additional history exists DTaP/Tdap/Td Vaccines (2 - 04/07/2020 04/07/2010 Tdap) LIPID DISORDER SCREENING 04/07/2020 04/07/2019, 12/02/2018, 12/20/2017, Additional history exists HIV SCREENING 07/21/2020 Postponed from 1960 (Patient refused) ZOSTER IMMUNIZATION SERIES 07/21/2020 05/23/2019, 2009 Postponed from (3 of 3) 07/18/2019 (Other) Colonoscopy 03/24/2023 03/24/2018, 03/23/2013, 12/08/2007 OSTEOPOROSIS SCREENING 09/29/2024 09/29/2014 PNEUMOCOCCAL 65+YRS Completed 10/03/2017, 07/19/2016, 09/29/2014, Additional history exists HEPATITIS A IMMUNIZATION Aged Out 11/28/2018, 06/02/2018 No longer eligible SERIES based on patient's age to complete this topic INFLUENZA VACCINE Completed 05/04/2019, 04/21/2018, 04/04/2017, Additional history exists HPV IMMUNIZATION SERIES Aged Out No longer eligible based on patient's age to complete this topic MENINGOCOCCAL VACCINE IMM Aged Out No longer eligible based on patient's age to complete this topic documented as of this encounter Goals Goal Patient Goal Associated Recent Patient-Stated? Author Type Problems Progress Blood Pressure Blood Pressure 138/82 No Andrés, < 150/90 (07/21/2019 MD Supriya 9:44 AM EST) Note: This is an individualized treatment (blood pressure) goal for Jamila Turcios : Displayed above (on the left) is your goal for blood pressure control. Your most recent blood pressure is also shown above, on the right. You should try to achieve blood pressures that are lower than your goal listed above (on the left). Depression screen (PHQ-9) total score < 5 Depression No Supriya Bowen MD Note: This is an individualized treatment (depression) goal for Jamila Turcios: Displayed above is your goal for a depression screening (PHQ-9) score that would indicate good control of your depression. Keep a regular sleep schedule Lifestyle Supriya Carlton MD Note: This is an individualized lifestyle goal for Jamila Turcios: Please maintain a regular sleep schedule. This may help with some symptoms of depression. Weight loss vs. 18 mo max Lifestyle 0 (07/21/2019 9:44 AM EST) Supriya Carlton MD (lbs) >= 10 Note: This is an individualized lifestyle goal for Jamila Turcios: Your body mass index (BMI) is more than 30. You should lose weight. A reasonable starting goal is to lose 10 pounds. Displayed above is how many pounds you have lost thus far towards your 10 pound weight loss goal. Take all prescribed medications as directed Self-management Supriya Carlton MD Note: This is an individualized self-management goal for Jamila Turcios: Please take all prescribed medications as directed. 1. Do not skip doses. If you cannot afford your medications, talk with your doctor. 2. Use a pill reminder system such as a pill box if needed. Your pharmacist can help you with this. 3. Contact your Pharmacy 5 days before your medication runs out. If you cannot take your medications for any reasons, talk with your doctor. 4. Please bring all of your medication bottles and inhalers (or a list of all your medications/inhalers) with you to every visit. Potential barriers to meeting all of your care plan goals will continue to be addressed on an ongoing basis. documented as of this encounter Results Not on filedocumented in this encounter Visit Diagnoses Diagnosis Preop examination Preoperative examination, unspecified Gastroesophageal reflux disease without esophagitis Esophageal reflux Essential hypertension Unspecified essential hypertension Coronary artery disease involving [place] coronary artery of [place] heart without angina pectoris Moderate persistent asthma without complication Unspecified asthma documented in this encounter Insurance Payer Benefit Plan / Subscriber ID Effective Dates Phone Address Type Group MEDICARE MEDICARE PART A & xxxxxxxxxxx Effective for all Medicare B dates [facility] PL[facility] xxxxxxxxx Effective for all [employer] dates Guarantor Name Account Type Relation to Date of Phone Billing Patient Address Jamila Turcios Personal/Family 1945 [address] (Home) [place], [place] [phone] (Work) documented as of this encounter
--- OUTSIDE RECORDS SUMMARY | 2019-09-11 14:43 | XMS REPORT | Continuity of Care Document ---
:1945 External Reference #:[id number] Author Name Carmelo Andrew M.D. 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 Onset: 04/23/2016 Closed fracture of lateral malleolus Emily Collazo M.D. Onset: 04/23/2016 Arthroplasty of knee Emily Collazo M.D. Onset: 10/22/2016 Social History Type Date Description Comments Sex Unknown Tobacco Use Start: Unknown Patient has never smoked Smoking Status Reviewed: 08/27/19 Patient has never smoked Exercise Type/Frequency Exercises [...] Available Vital Signs Date Vital Result Comment 08/27/2019 9:46am Height 63.5 inches 5'3.50" Heart Rate 89 /min BP Systolic 144 mmHg BP Diastolic 80 mmHg Respiratory Rate 20 /min Body Temperature 98.8 F Pain Level 3 08/04/2019 9:50am Height 63.5 inches 5'3.50" Weight 175.00 lb Heart Rate 80 /min BP Systolic 128 mmHg BP Diastolic 78 mmHg Respiratory Rate 18 /min Body Temperature 98.2 F O2 % BldC Oximetry 98 % BMI (Body Mass Index) 30.5 kg/m2 Results Test Acquired Date Facility Test Result H/L Range Note Surgical 08/17/2019 [facility] Surgical SEE RESULT [address] [place] [address] [phone] PDFReport SEE IMAGE 1 SEE RESULT BELOW Name: APURVACODYJAMILA T : [address]: Carmelo Andrew MD Acct: [id number] Unit: [id number] AGE: 74 Location: OR Re08/17/19 SEX: F Status: DEP SDC SPEC: [id number] JOSE LUIS: 08/17/19- SUBM DR: Carmelo Andrew MD REQ: [id number] RECD: 08/17/199 STATUS: SOUT _ ORDERED: Decal, LEVEL 3 [...] by a glistening smooth summers-pink articular surface. Finish Mender sections, one cassette following decalcification. Signed by and Reported on: Jerrod Jose MD [address] END OF REPORT DEPARTMENT OF PATHOLOGY, [address] [place] [address] Jerrod Jose M.D. Director [facility] # [id number] Procedures Description No Information Available Medical Devices Description No Information Available Encounters Type Date Location Provider Dx Diagnosis Office Visit 06/30/2019 [facility] Kathleen Boogie.672 Other chronic 10:00a at [facility] osteomyelitis, left ankle and foot M20.42 Other hammer toe(s) (acquired), left foot Assessments Date Code Description Provider 08/27/2019 M20.42 Other hammer toe(s) (acquired), left foot Carmelo Andrew M.D. 08/04/2019 M20.42 Other hammer toe(s) (acquired), left foot Carmelo Andrew M.D. 06/30/2019 M86.672 Other chronic osteomyelitis, left ankle and Carmelo Andrew M.D. foot 06/30/2019 M20.42 Other hammer toe(s) (acquired), left foot Carmelo Andrew M.D. Plan of Treatment Future Appointment(s):09/01/2019 8:30 am - Carmelo Andrew M.D. at [facility] at [facility]9408/27/2019 - Carmelo Andrew M.D.M20.42 Other hammer toe(s ) (acquired), left footNew Medication:Bactrim DS 800-160 mg - 1 by mouth twice a dayFollow up:next Functional Status Description No Information Available Mental Status Description No Information Available Referrals Description No Information Available
[2019-09-11] MEDS ORDERED: oxyCODONE/Acetamin 5/325 MG* TAB PO ONE (15:49)
[2019-09-11] MEDS ORDERED: Albuterol HFA INHALER* 8 gm MDI INH PRN (19:41)
[2019-09-11] MEDS: Sulfamethox/Trimethoprim DS 800/160* TAB PO SCH (20:23)
[2019-09-11] MEDS: Aspirin EC TAB* 81 MG TAB.EC PO SCH (20:23)
[2019-09-11] MEDS: oxyCODONE/Acetamin 5/325 MG* TAB PO PRN (20:28)
[2019-09-11] MEDS: Mometasone/Formoter 200/5 MDI INH SCH (23:45)
[2019-09-11] MEDS: Cholecalciferol TAB* 1000 UNITS PO SCH (23:45)
[2019-09-11] MEDS: CMCS:Rosuvastatin (NF) 20 MG TAB PO SCH (23:45)
[2019-09-11] MEDS: Ezetimibe TAB* 10 MG PO SCH (23:45)
[2019-09-11] MEDS: Heparin VIAL(*) 5000 UNITS/ML VIAL (FIVE THOUSAND) SUBCUT SCH (23:47)
[2019-09-11] MEDS: Lifitegrast (NF) 1 BTL BOTH EYES SCH (23:54)
--- NOTE | 2019-09-12 00:15 | HP ---
CC: Dr. Bowen * MEDICINE HISTORY AND PHYSICAL: DATE OF ADMISSION: 09/11/19 PROVIDER: Nancy Blancas NP. ATTENDING PHYSICIAN: Dr. Tanner Carvajal * (dictated by Nancy Blancas NP). PRIMARY CARE PROVIDER: Dr. Supriya Bowen. OUTPATIENT ORTHOPEDIC SURGEON: Dr. Carmelo Andrew. CONSULTING ORTHOPEDIC SURGEON: Dr. Cristian Palma. CHIEF COMPLAINT: Fall with right leg pain. HISTORY OF PRESENT ILLNESS: Ms. Turcios is a 74-year-old female who unfortunately sustained a mechanical fall today. She says that she had stepped out on to her back porch, which had a dusting of snow, in order to take a picture of the recent snowfall. She came back in and stepped on the indoor/outdoor rug with her shoes on; she tried to remove the snow from her shoes. She is currently limited weightbearing to her left lower extremity, heel bearing only. She attempted to walk on to the hardwood floor. When she stepped off the rug, the heel of her shoe was still wet, and she slipped and fell directly on her right knee. She was unable to ambulate after that. She was brought into the ER for further evaluation. She was found to have a periprosthetic fracture of the right distal femur. She has a history of a right knee replacement few years ago. Of note, she is being followed by Dr. Andrew and has recently undergone excision of the second, third, fourth, and fifth metatarsal heads with percutaneous pinning of hammertoes. She reports a left second toe infection secondary to a bunionectomy and hammertoe correction in 1999. Following that experience, she had recurrent osteomyelitis of the toes, resulting in more deformities and more recently had surgical correction of these with pin placements. Her most recent procedure was on 08/17/19 and at that time, she was placed on the limited weightbearing precautions of her left lower extremity. She has been treating the dressings to her left foot daily with Betadine wet-to-dry dressing and is actually due for another pin pulling next week. Prior to her injury today, she reports that she was in good health and denies any acute concerns or recent illness. A knee x-ray in the ER did confirm this distal femoral frank-hardware fracture with moderate effusion and on further examination with CT, she was noted again to have a nondisplaced periprosthetic fracture of distal right femur. PAST MEDICAL HISTORY: 1. Polio with chronic right leg weakness. 2. Coronary artery disease. 3. Asthma. 4. Hyperlipidemia. 5. Hypertension. 6. Tachycardia. 7. Vitamin D deficiency. 8. GERD. PAST SURGICAL HISTORY: Includes: 1. Right knee replacement. 2. Cardiac catheterization with stent placement. 3. x2. 4. Tubal ligation. 5. Tendon replacement to bilateral knees. 6. Bunionectomy. 7. Cataract extractions. HOME MEDICATIONS: 1. Bactrim DS 800/160 one tab b.i.d. 2. PreserVision AREDS 2 soft gels each b.i.d. 3. Sertraline 25 mg q.a.m. 4. Rosuvastatin 40 mg at bedtime. 5. Omeprazole 20 mg q.a.m. 6. Nitroglycerin 1 tab sublingual q.5 minutes p.r.n. 7. Montelukast 10 mg q.a.m. 8. Lifitegrast 1 drop both eyes b.i.d. 9. Ezetimibe 10 mg at bedtime. 10. Cholecalciferol 1000 units b.i.d. 11. Symbicort 160/4.5 two puffs inhaled b.i.d. 12. Bisoprolol/hydrochlorothiazide 10/6.25 one tab q.a.m. 13. Aspirin 81 mg at bedtime. 14. Albuterol 2 puffs inhaled q.4 hours p.r.n. ALLERGIES: Include MORPHINE, METAL, OPIOID ANALGESICS, LATEX, CODEINE, ATORVASTATIN, ADHESIVE TAPE. FAMILY HISTORY: She reports her mother with COPD, father had CVA and coronary artery disease. Sister with MS and arthritis, and a brother with throat cancer and arthritis. SOCIAL HISTORY: She reports minimal smoking at age 20 for a few weeks, but otherwise this is negative. She reports 5 to 6 glasses of wine a year. Denies any history of drug use. 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 She is and names her , Ac, as the surrogate decision maker with her daughter being secondary. REVIEW OF SYSTEMS: A 12-point review of systems was completed. All pertinent positives and negatives as per HPI. PHYSICAL EXAMINATION GENERAL: This is a very pleasant 74-year-old female, seen lying in the ED stretcher, in no acute distress. VITAL SIGNS: Temp 96.8, heart rate 80, respiratory rate 18, blood pressure 100/ 51, O2 saturation 94% on room air. HEENT: Head is atraumatic and normocephalic. Pupils are equal, round, and reactive to light and accommodation. Extraocular movements are intact. Oral mucosa is moist. NECK: Supple. No lymphadenopathy. Full range of motion is present. LUNGS: Clear to auscultation. CARDIAC: Regular rate and rhythm. Normal S1, S2 heart sounds. There is a soft systolic murmur best heard along the right upper sternal border. Extremities without edema. Distal pulses present in the posterior tibialis and dorsalis pedis sites, 2+ and present. ABDOMEN: Soft, nontender, nondistended with normoactive bowel sounds. MUSCULOSKELETAL: No clubbing or cyanosis. Active range of motion of the upper extremities and left lower extremity. Right lower extremity is limited secondary to pain. NEURO: Alert and oriented x3. No focal deficits noted. Speech is clear. SKIN: Limited assessment but grossly intact. DIAGNOSTIC STUDIES: Imaging as per above. Old medical records are reviewed. ASSESSMENT AND PLAN: This is a 74-year-old female with a history significant for reconstruction of the left toes, only partially weightbearing on the left, now has periprosthetic fracture on the right, that is nonweightbearing. She will be admitted to the surgical floor. Plan is as follows: 1. Right periprosthetic distal femur fracture following mechanical fall. Orthopedics has been consulted. They will follow with her this weekend. She is currently nonweightbearing in the right, and she is only partial weightbearing to the heel on the left, which will allow her to do transfer. She may have additional pins removed next week, which may increase her weightbearing status on the left side. Until that point, we will keep her with limited weightbearing precautions due to her pain and provide DVT prophylaxis. With regards to her previous surgery and left foot dressing, we will continue her Betadine wet-to-dry dressing to the left foot until evaluated by Ortho tomorrow. We will also continue her on her Bactrim. 2. Hyperlipidemia. Continue statin. 3. Coronary artery disease. Continue aspirin, beta-salma, and statin. 4. Asthma. Continue Symbicort and p.r.n. albuterol. 5. Gastroesophageal reflux disease. Continue omeprazole. 6. FEN: Heart-healthy diet. 7. DVT prophylaxis: Subcu heparin. 8. Code status: Full code. TIME SPENT: Approximately 60 minutes was spent on this admission with greater than half of that time spent bhnz-co-[id number] with the patient obtaining history and physical, performing physical examination, and reviewing the plan of care. Plan of care was also reviewed with my attending, Dr. Carvajal, who is in agreement. NANCY BLANCAS, HAMMER REPAIRER [id number]/CPS #: [id number] LAILA
[2019-09-12] MEDS: oxyCODONE/Acetamin 5/325 MG* TAB PO PRN ×5 (00:27→17:14)
[2019-09-12 05:38] LABS: ABS Eosinophils 0.2 10^3/ul (0-0.6); ABS Lymphocytes 1.2 10^3/ul (1.0-4.8); ABS Monocytes 0.5 10^3/ul (0-0.8); ABS Neutrophils 5.1 10^3/ul (1.5-7.7); Eosinophil % 2.2 %; Hematocrit 35 % (35-47); Hemoglobin 11.8 g/dL (12.0-16.0); Lymphocyte % 17.5 %; Mean Corpuscular HGB Conc 34 g/dL (31-36); Mean Corpuscular Hemoglobin 29 pg (27-31); Mean Corpuscular Volume 86 fL (80-97); Mean Platelet Volume 7.7 fL (7.4-10.4); Platelet Count 248 10^3/uL (150-450); Red Blood Count 4.03 10^6 /uL (3.70-4.87); Red Cell Distribution Width 15 % (10-15); White Blood Count 7.1 10^3/uL (3.5-10.8)
[2019-09-12 05:58] LABS: BUN/Creatinine Ratio 17.2 (8-20); Calcium 8.6 mg/dL (8.6-10.3); EGFR African American 52.1 (>60); EGFR Non-African American 43.1 (>60); Potassium 3.7 mmol/L (3.5-5.0)
[2019-09-12] MEDS: Heparin VIAL(*) 5000 UNITS/ML VIAL (FIVE THOUSAND) SUBCUT SCH (06:16)
[2019-09-12] MEDS: Mometasone/Formoter 200/5 MDI INH SCH ×2 (08:18→21:08)
[2019-09-12] MEDS: Lifitegrast (NF) 1 BTL BOTH EYES SCH (08:19)
[2019-09-12] MEDS: Multivitamins/Minerals TAB PO SCH ×2 (08:21→08:22)
[2019-09-12] MEDS: Bisoprolol TAB* 5 MG PO SCH (08:22)
[2019-09-12] MEDS: Cholecalciferol TAB* 1000 UNITS PO SCH ×2 (08:23→21:06)
[2019-09-12] MEDS: Pantoprazole TAB * 40 MG TAB PO SCH (08:23)
[2019-09-12] MEDS: Montelukast Sodium TAB* 10 MG PO SCH (08:23)
[2019-09-12] MEDS: Sulfamethox/Trimethoprim DS 800/160* TAB PO SCH ×2 (08:24→21:06)
[2019-09-12] MEDS: Sertraline* 50 MG TAB PO SCH (08:25)
[2019-09-12] MEDS: Hydrochlorothiazide TAB* 25 MG PO SCH (08:27)
--- NOTE | 2019-09-12 10:49 | PN ---
Subjective Date of Service: 09/12/19 Interval History: Patient tells me she doesn't have pain when she doesn't move her right leg. Denies chest pain, difficulty breathing, abd pain. Has not yet had a BM today. Objective Active Medications: Albuterol (Ventolin Hfa Inhaler*) 2 puff INH Q4HR PRN PRN Reason: DYSPNEA Aspirin (Aspirin Ec Tab*) 81 mg PO BEDTIME ON LICENSE OF [facility] Last Admin: 09/11/19 20:23 Dose: 81 mg Bisoprolol Fumarate (Zebeta Tab*) 10 mg PO QAM ON LICENSE OF [facility] Last Admin: 09/12/19 08:22 Dose: 10 mg Cholecalciferol (Vitamin D Tab*) 1,000 units PO BID ON LICENSE OF [facility] Last Admin: 09/12/19 08:23 Dose: 1,000 units Ezetimibe (Zetia Tab*) 10 mg PO BEDTIME ON LICENSE OF [facility] Last Admin: 09/11/19 23:45 Dose: 10 mg Heparin Sodium (Porcine) (Heparin Vial(*)) 5,000 units SUBCUT Q8HR ON LICENSE OF [facility] Last Admin: 09/12/19 06:16 Dose: 5,000 units Hydrochlorothiazide (Hydrodiuril Tab*) 6.25 mg PO QAM ON LICENSE OF [facility] Last Admin: 09/12/19 08:27 Dose: 6.25 mg Lifitegrast (Xiidra (Nf)) 1 drop BOTH EYES BID ON LICENSE OF [facility] Last Admin: 09/12/19 08:19 Dose: Not Given Mometasone Furoate/Formoterol Fumar (Dulera 200/5 Mdi*) 2 puff INH BID ON LICENSE OF [facility]; Protocol Last Admin: 09/12/19 08:18 Dose: 2 puff Montelukast Sodium (Singulair Tab*) 10 mg PO QAM ON LICENSE OF [facility] Last Admin: 09/12/19 08:23 Dose: 10 mg Multivitamins/Minerals (Theragran/Minerals Tab*) 1 tab PO DAILY ON LICENSE OF [facility] Last Admin: 09/12/19 08:22 Dose: 1 tab Ondansetron HCl (Zofran Inj*) 4 mg IV Q4H PRN PRN Reason: NAUSEA/VOMITING Oxycodone/Acetaminophen (Percocet 5/325 Tab*) 1 tab PO Q4H PRN PRN Reason: PAIN - MODERATE Last Admin: 09/12/19 09:22 Dose: 1 tab Pantoprazole Sodium (Protonix Tab*) 40 mg PO QAM ON LICENSE OF [facility] Last Admin: 09/12/19 08:23 Dose: 40 mg Rosuvastatin Calcium (Crestor (Nf)) 40 mg PO BEDTIME ON LICENSE OF [facility] Last Admin: 09/11/19 23:45 Dose: 40 mg Sertraline HCl (Zoloft*) 25 mg PO QAM ON LICENSE OF [facility] Last Admin: 09/12/19 08:25 Dose: 25 mg Tramadol HCl (Ultram*) 50 mg PO Q6H PRN PRN Reason: PAIN - MODERATE Trimethoprim/Sulfamethoxazole (Bactrim Ds 800/160 Tab*) 1 tab PO BID ON LICENSE OF [facility] Last Admin: 09/12/19 08:24 Dose: 1 tab Vital Signs - 8 hr 09/12/19 09/12/19 09/12/19 02:48 03:39 05:14 Temperature 98.6 F Pulse Rate 78 Respiratory 16 18 16 Rate Blood Pressure 104/54 (mmHg) O2 Sat by Pulse 98 Oximetry 09/12/19 09/12/19 09/12/19 07:40 08:17 09:22 Temperature 98.2 F Pulse Rate 67 Respiratory 16 18 18 Rate Blood Pressure 102/60 (mmHg) O2 Sat by Pulse 100 Oximetry Oxygen Devices in Use Now: None Appearance: Overweight, elderly, pleasant white female, sitting upright in bed, appearing comfortable and in NAD Eyes: No Scleral Icterus, - - PERRL Ears/Nose/Mouth/Throat: Mucous Membranes Moist Neck: Trachea Midline Respiratory: Symmetrical Chest Expansion and Respiratory Effort, Clear to Auscultation Cardiovascular: NL Sounds; No Murmurs; No JVD, RRR Abdominal: - - abd soft, nontender, nondistended Extremities: No Edema, No Clubbing, Cyanosis, - - RLE in brace; L foot in walking boot with clean, dry dressings Skin: No Rash or Ulcers Neurological: Alert and Oriented x 3, NL Muscle Strength and Tone Result Diagrams: 09/12/19 05:20 09/12/19 05:20 Assess/Plan/Problems-Billing Assessment: 74 yo female with PMHx asthma, CAD, HTN, HLD, GERD, and 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 - Patient Problems (1) Right femoral fracture Current Visit: Yes Status: Acute Code(s): S72.91XA - UNSP FRACTURE OF RIGHT FEMUR, INIT FOR CLOS FX SNOMED Code(s): 56141850 Comment: -Appreciate orthopedic consult. Dr. Collazo recommending nonoperative conservative mgmt with NWB to RLE; recommends DVT ppx as well, started eliquis -this complicates disposition due to limited WB status of LLE due to recent L foot surgery as below, requiring wheelchair for now -f/u ortho outpatient in 2 weeks (2) Status post left foot surgery Current Visit: Yes Status: Acute Code(s): Z98.890 - OTHER SPECIFIED POSTPROCEDURAL STATES SNOMED Code(s): 263190749 Comment: -recent resection of 2nd-5th L metatarsal heads -Dr. Andrew to remove pins at bedside tomorrow or Saturday; if she is able to go into a boot and return to full weight bearing status of her LLE, then she would more likely be able to go home instead of to [facility] (3) CAD (coronary artery disease) Current Visit: No Status: Chronic Code(s): I25.10 - ATHSCL HEART DISEASE OF [place] CORONARY ARTERY W/O ANG PCTRS SNOMED Code(s): 07906277 Comment: -continue statin and ASA (4) Asthma Current Visit: No Status: Chronic Code(s): J45.909 - UNSPECIFIED ASTHMA, UNCOMPLICATED SNOMED Code(s): 555627067 Comment: -no signs of acute exacerbation -continue dulera, montelukast, prn albuterol (5) GERD (gastroesophageal reflux disease) Current Visit: No Status: Chronic Code(s): K21.9 - GASTRO-ESOPHAGEAL REFLUX DISEASE WITHOUT ESOPHAGITIS SNOMED Code(s): 223450587 Comment: -Continue PPI (6) HLD (hyperlipidemia) Current Visit: No Status: Chronic Code(s): E78.5 - HYPERLIPIDEMIA, UNSPECIFIED SNOMED Code(s): 38682637 Comment: -Continue statin and zetia (7) HTN (hypertension) Current Visit: No Status: Chronic Code(s): I10 - ESSENTIAL (PRIMARY) HYPERTENSION SNOMED Code(s): 22642621 Comment: -normotensive -cont HCTZ (8) DVT prophylaxis Current Visit: No Status: Acute Code(s): SWV9711 - SNOMED Code(s): 397948753 Comment: -eliquis as DVT ppx per orthopedic rec, for at least one month, course should be determined at follow up based on length of NWB status (9) Full code status Current Visit: Yes Status: Acute Code(s): Z78.9 - OTHER SPECIFIED HEALTH STATUS SNOMED Code(s): 049448071 Status and Disposition: pending ANIBAL
--- NOTE | 2019-09-12 10:51 | PN ---
Progress Note - Progress Note Date of Service: 09/12/19 SOAP: Subjective: Pt. slipped on snow, flexed R knee. Prior RTKA and xray/CT show nondisplaced distal femur periprosthetic fracture. Objective: Vital Signs: Temp Pulse Resp BP Pulse Ox 98.2 F 67 18 102/60 100 09/12/19 07:40 09/12/19 07:40 09/12/19 09:22 09/12/19 07:40 09/12/19 07:40 Laboratory Results - last 24 hr 09/12/19 09/12/19 05:20 05:20 WBC 7.1 RBC 4.03 Hgb 11.8 L Hct 35 MCV 86 MCH 29 MCHC 34 RDW 15 Plt Count 248 MPV 7.7 Neut % (Auto) 72.8 Lymph % (Auto) 17.5 [place] % (Auto) 6.8 Eos % (Auto) 2.2 Baso % (Auto) 0.7 Absolute Neuts (auto) 5.1 Absolute Lymphs (auto) 1.2 Absolute Monos (auto) 0.5 Absolute Eos (auto) 0.2 Absolute Basos (auto) 0.0 Absolute Nucleated RBC 0.0 Nucleated RBC % 0.0 Sodium 135 Potassium 3.7 Chloride 100 L Carbon Dioxide 27 Anion Gap 8 BUN 21 Creatinine 1.22 H Est GFR ( Amer) 52.1 Est GFR (Non-Af Amer) 43.1 BUN/Creatinine Ratio 17.2 Glucose 157 H Calcium 8.6 RLE - knee immobilizer, swollen thigh/knee, distally +df/pf, full sens lt, 2+ DP pulse, Assessment: 74 yo F s/p fall with nondisplaced R periprosthetic femur fracture at RTKA Plan: Plan is nonoperative care. NWB RLE with knee immobilizer on at all times. LLE unfortunately s/p recent foot surgery with heel wb only. 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 d/w hospitalist team. ortho to follow, if d/c'ed please call [phone] for appointment in 10-14 days.
[2019-09-12] MEDS ORDERED: Senna TAB 8.6 mg* TAB PO PRN (11:00)
[2019-09-12] MEDS ORDERED: PTO: Artificial Tears* 15 ML BTL PRN (12:48)
[2019-09-12] MEDS: ALAWAY EYE SCH ×2 (13:14→21:09)
[2019-09-12] MEDS: Magnesium Hydroxide LIQ* 30 ML UDC PO PRN ×2 (13:16→21:09)
[2019-09-12] MEDS: Docusate CAP* 100 MG PO PRN ×2 (13:16→21:08)
[2019-09-12] MEDS: traMADol TAB* 50 MG PO PRN ×2 (14:47→21:07)
[2019-09-12] MEDS: Ondansetron INJ* 2 MG/ML VIAL IV PRN ×2 (14:47→21:10)
[2019-09-12] MEDS: Aspirin EC TAB* 81 MG TAB.EC PO SCH (21:06)
[2019-09-12] MEDS: Ezetimibe TAB* 10 MG PO SCH (21:06)
[2019-09-12] MEDS: Apixaban* 2.5 MG TAB PO SCH (21:08)
[2019-09-12] MEDS: CMCS:Rosuvastatin (NF) 20 MG TAB PO SCH (21:08)
[2019-09-13] MEDS: oxyCODONE/Acetamin 5/325 MG* TAB PO PRN ×2 (04:24→09:48)
[2019-09-13] MEDS: Ondansetron INJ* 2 MG/ML VIAL IV PRN ×2 (04:25→09:55)
[2019-09-13] MEDS: Apixaban* 2.5 MG TAB PO SCH (09:09)
[2019-09-13] MEDS: Bisoprolol TAB* 5 MG PO SCH (09:09)
[2019-09-13] MEDS: Hydrochlorothiazide TAB* 25 MG PO SCH (09:09)
[2019-09-13] MEDS: Cholecalciferol TAB* 1000 UNITS PO SCH (09:09)
[2019-09-13] MEDS: Pantoprazole TAB * 40 MG TAB PO SCH (09:10)
[2019-09-13] MEDS: ALAWAY EYE SCH (09:10)
[2019-09-13] MEDS: Sertraline* 50 MG TAB PO SCH (09:10)
[2019-09-13] MEDS: Montelukast Sodium TAB* 10 MG PO SCH (09:10)
[2019-09-13] MEDS: Sulfamethox/Trimethoprim DS 800/160* TAB PO SCH (09:10)
[2019-09-13] MEDS: Multivitamins/Minerals TAB PO SCH (09:10)
[2019-09-13] MEDS: Mometasone/Formoter 200/5 MDI INH SCH (09:45)
[2019-09-13] MEDS: Magnesium Hydroxide LIQ* 30 ML UDC PO PRN (09:53)
[2019-09-13 12:08] VITALS: BP 138/67
--- NOTE | 2019-09-13 13:12 | DS ---
CC: Dr. Bowen; Dr. Collazo * DISCHARGE SUMMARY: DATE OF ADMISSION: 09/11/19 DATE OF DISCHARGE: 09/13/19 PROVIDER: LEWIS Bernabe ATTENDING PHYSICIAN WHILE IN THE HOSPITAL: Dr. Sam Alvarez * (dictated by LEWIS Bernabe) PRIMARY CARE PROVIDER: Dr. Bowen. OUTPATIENT ORTHOPEDIC SURGEON: Dr. Andrew. CONSULTING ORTHOPEDIC SURGEON: Dr. Collazo. PRIMARY DIAGNOSES: 1. Right distal femur fracture. 2. Left lower extremity osteomyelitis with recent excision of distal metatarsals [address] SECONDARY DIAGNOSES: 1. 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 2. Coronary artery disease. 3. Asthma. 4. Hyperlipidemia. 5. Hypertension. 6. History of tachycardia. 7. Vitamin D deficiency. 8. GERD. HISTORY OF PRESENT ILLNESS/HOSPITAL COURSE: Jamila Turcios is a 74-year-old white female with the past medical history significant for recent left toe amputations due to osteomyelitis, coronary artery disease, asthma, hypertension , hyperlipidemia; who presented to the emergency department after a mechanical fall at home. The patient was heel weightbearing only on her left lower extremity after surgery and this caused her to fall when she slipped on water at her house. The patient was found to have nondisplaced right periprosthetic femur fracture and orthopedic surgery was consulted and recommended nonoperative management. The patient was initially advised to have nonweightbearing status to the right lower extremity with a knee immobilizer. Dr. Andrew followed up with the patient today as he has been following her for her left foot and he had advanced her weightbearing abilities to weightbearing as tolerated on her left foot as long as she is wearing her postop shoe/walking shoe. For this reason, he has advanced her right lower extremity ambulation to be able to touch her toes though maintaining a knee immobilizer. The patient had fair control of her pain throughout her hospital stay. By the day of discharge, she is no longer having muscular spasms and this is under well control. Her normal home medications were continued. Her Bactrim which was recently prescribed starting on 09/08/19 was continued as well. Appears that she was prescribed a 7-day prescription, it appears she did not picker and sorter load and unload this prescription until 09/09/19, and therefore today is her 5th dose of this and she will be continued for an additional 2 doses. Otherwise, Orthopedics should be consulted if this medication should be continuing and additionally for the rest of her care regarding her left foot as well as throughout her rehabilitation for her new right femur fracture. On the day of discharge, the patient has no complaints. As previously mentioned, her pain is fairly well controlled. She has no chest pain or difficulty breathing, though she has mentioned that she has not yet had her bowel movements during her hospitalization. Orthopedics also recommended a long- term anticoagulation. This patient's lower extremity is immobilized. PHYSICAL EXAMINATION ON THE DAY OF DISCHARGE: General: Elderly white female, laying in the hospital bed, appearing comfortable in no acute distress. Eyes: PERRLA, sclerae anicteric. ENT: Mucous membranes are moist. Lungs: Clear to auscultation throughout. Cardio: Regular rate and rhythm without murmurs, rubs , or gallops. Abdomen: Soft, nontender, and nondistended. Extremities: Right knee immobilizer in place, left postop shoe in place, and bandages to left toes clean, dry, and intact. No clubbing, cyanosis, or edema. Neuro: The patient is alert and oriented x3. DISCHARGE DIET: Heart-healthy diet, caffeine okay. ACTIVITY: Weightbearing only to toe touch with knee immobilizer on the right side; weight bearing as tolerated to left lower extremity with walking shoe/ postop shoe. DISCHARGE INSTRUCTIONS: The patient is being discharged to [facility] for ongoing Rehab. Her course there will be determined by her rehabilitation as well as the progression of her postoperative status of her left toes and left lower extremity. The patient is to continue following up with Orthopedics. As previously mentioned, she is currently taking Bactrim. At this point, she has 2 more days of this prescription left and Orthopedics should recommend further time course if necessary. After discharge from [facility], the patient should follow up with her primary care provider as well as Orthopedics. She should return to emergency care if she is experiencing fever, chills, cyanosis of her extremity, severe pain, weakness, numbness or tingling of her extremities, chest pain, difficulty breathing. DISCHARGE MEDICATIONS: New Medications: 1. Eliquis 2.5 mg p.o. b.i.d. 2. Colace 100 mg p.o. b.i.d. p.r.n. 3. Milk of magnesia 30 mg p.o. q.6 hours p.r.n. 4. Senna 1 tab p.o. b.i.d. p.r.n. 5. Oxycodone/acetaminophen 5/325 mg 1 tab p.o. q.4 hours p.r.n. pain. 6. Tramadol 50 mg p.o. q.6 hours p.r.n. pain. Continued home medications: 1. Artificial tears 1 drop q.2 hours p.r.n. dry eye. 2. Albuterol 2 puffs inhaled q.4 hours p.r.n. shortness of breath/wheezing. 3. Aspirin 81 mg p.o. at bedtime. 4. Bisoprolol/hydrochlorothiazide 10 mg/6.25 mg p.o. 1 tab p.o. daily. 5. Symbicort 160/4.5 two puffs inhaled b.i.d. 6. Vitamin D one tab p.o. b.i.d. 7. Ezetimibe 10 mg p.o. at bedtime. 8. Lifitegrast 1 drop both eyes b.i.d. 9. Singulair 10 mg p.o. q.a.m. 10. Nitroglycerin 1 tab sublingual q.5 minutes p.r.n. angina. 11. Omeprazole 20 mg p.o. daily. 12. Rosuvastatin 40 mg p.o. daily. 13. Sertraline 25 mg p.o. daily. 14. PreserVision AREDS soft gel 1 tab p.o. b.i.d. 15. Bactrim Double Strength 1 tab p.o. b.i.d. (2 additional days, today is day 5 out of 7). CONDITION ON DISCHARGE: Stable. DISPOSITION: PMRU at [facility]. TIME SPENT: Approximately 35 minutes was spent on this discharge, approximately half of this time was spent at the bedside evaluating the patient and discussing the plan of care. LEWIS BERNABE [id number]/[facility] #: [id number] [facility]
== END 2019-09-13 13:00 | DRG 534 ==
LOC: ED 13:31 → SSU 19:45
PROVIDERS: ADMIT Nurse Practitioner Family; ATTEND Internal Medicine
DX: S72.401A Unspecified fracture of lower end of right femur, initial encounter for closed fracture (principal); M97.11XA Periprosthetic fracture around internal prosthetic right knee joint, initial encounter; M86.9 Osteomyelitis, unspecified; W01.0XXA Fall on same level from slipping, tripping and stumbling without subsequent striking against object, initial encounter; I25.10 Atherosclerotic heart disease of native coronary artery without angina pectoris; J45.909 Unspecified asthma, uncomplicated; E78.5 Hyperlipidemia, unspecified; I10 Essential (primary) hypertension; E55.9 Vitamin D deficiency, unspecified; K21.9 Gastro-esophageal reflux disease without esophagitis; R53.1 Weakness; Y92.009 Unspecified place in unspecified non-institutional (private) residence as the place of occurrence of the external cause; Z95.5 Presence of coronary angioplasty implant and graft; Z79.82 Long term (current) use of aspirin; Z79.899 Other long term (current) drug therapy; Z91.040 Latex allergy status; Z88.5 Allergy status to narcotic agent; Z88.8 Allergy status to other drugs, medicaments and biological substances; Z91.048 Other nonmedicinal substance allergy status; Z82.5 Family history of asthma and other chronic lower respiratory diseases; Z82.3 Family history of stroke; Z82.49 Family history of ischemic heart disease and other diseases of the circulatory system; Z82.61 Family history of arthritis; Z80.0 Family history of malignant neoplasm of digestive organs; Z82.69 Family history of other diseases of the musculoskeletal system and connective tissue; Z89.422 Acquired absence of other left toe(s); Z86.12 Personal history of poliomyelitis
CPT/HCPCS: 36415; 80048; 85025; 93005; 94640; 99283; A9270-GY; J1644; J2405

== ENCOUNTER 2019-09-13 11:03 | Inpatient (IN) | payer MEDICARE, BC ==
--- NOTE | 2019-09-13 11:25 | PN ---
PROGRESS NOTE: DATE: 09/13/19 LOCATION: Seen in the short-stay unit. HISTORY: Jamila fell on a wet floor 2 days ago, injured her right periprosthetic distal femur. She is in a knee immobilizer now and with a minimally displaced fracture, the plan will be nonoperative care. Complicating this is the fact that she is recovering from left forefoot surgery about 3-1/2 weeks ago. She had a wound infection, treated with some Bactrim and a pin removal and that area is much improved with less redness and drainage. Plan going forward will be weightbearing as tolerated in the left foot with a postoperative shoe or a short boot. The pins could be removed anytime in the next week or so. The right side would obviously be toe-touch weightbearing. Hopefully, she can be transferred to the rehab unit here at [facility]. [id number]/CPS #: [id number] MTDD
[2019-09-13] MEDS ORDERED: Acetaminophen TAB* 325 MG PO PRN (11:41)
[2019-09-13] MEDS ORDERED: Senna TAB 8.6 mg* TAB PO PRN (11:51)
[2019-09-13] MEDS ORDERED: Polyethylene Glycol 3350* 17 GM PACKET PO PRN (12:08)
[2019-09-13] MEDS ORDERED: oxyCODONE/Acetamin 5/325 MG* TAB PO PRN (12:09)
[2019-09-13] MEDS ORDERED: traMADol TAB* 50 MG PO PRN (12:10)
[2019-09-13] MEDS ORDERED: Albuterol HFA INHALER* 8 gm MDI INH PRN (12:11)
--- NOTE | 2019-09-13 14:10 | HP ---
CC: Dr. Bowen; Dr. Collazo; Dr. Andrew * REHABILITATION ADMISSION: DATE OF ADMISSION: 09/13/19 PRIMARY CARE PROVIDER: Dr. Bowen. ORTHOPEDIC SURGEONS: Dr. Collazo and Dr. Andrew. REASON FOR ADMISSION: Right distal femur periprosthetic fracture. HISTORY OF PRESENT ILLNESS: This is a 74-year-old woman with chronic right greater than left lower extremity weakness as well as weakness and fatigue due to post- polio syndrome, who previously had undergone a right total knee replacement a few years ago with Dr. Collazo without issues and on 08/17/19 due to chronic pains and deformity in her left forefoot underwent resection of metatarsal heads #2, 3, 4 and 5 with pinning of hammertoes with Dr. Andrew. Postoperatively, one of the pins was removed due to concerns of some infection and she was placed on Bactrim DS. Her precautions postsurgery were heel weightbearing only on the left lower extremity and she was doing daily wet-to- day dressing changes with Betadine. On the day of admission on 09/11/19, she had stepped outside on her back deck to take pictures of the snow. When she returned inside, she dried off her shoe that she was using for heel weightbearing, but stepped and slipped and fell with her right leg bent behind her like a split. She was brought to the emergency room and found to have a distal femur fracture near the right total knee replacement. She was initially made nonweightbearing and put in a knee immobilizer. She was seen by Dr. Collazo yesterday who advised that she should have a knee immobilizer on at all times and initially nonweightbearing status. She was seen by Dr. Andrew this morning who said that she can now weightbear as tolerated to the left lower extremity in either a short boot or a postoperative shoe. Also, her weightbearing status of the right lower extremity was changed to toe-touch weightbearing with the knee immobilizer on at all times. Dr. Collazo was in agreement with this plan as well. Prior to admission, she was independent with mobility and activities of daily living. Intermittently, she was using a cane since her left foot surgery. With physical therapy, she has required a partial/moderate amount of assistance for bed mobility and transferring. She has been getting muscle spasms in both of her legs. She has been using a bedpan for toileting. PAST MEDICAL HISTORY: 1. Polio as a child, affecting all 4 extremities, with chronic right greater than left leg weakness and post-polio syndrome. 2. Coronary artery disease, status post stenting. 3. Asthma. 4. Hyperlipidemia. 5. Hypertension. 6. History of tachycardia. 7. Vitamin D deficiency. 8. GERD. 9. Status post right total knee replacement. 10. x2. 11. Status post tubal ligation. 12. History of bilateral knee tendon surgeries. 13. Status post bunionectomy. 14. Status post cataract surgery. 15. Hard of hearing with bilateral hearing aids. MEDICATIONS: 1. Bactrim DS 800/160 one p.o. b.i.d. 2. Aspirin 81 mg daily. 3. Crestor 40 mg q.h.s. 4. Dulera 200/5 metered-dose inhaler 2 puffs b.i.d., which is substituting for her home Symbicort 160/4.5 two puffs b.i.d. 5. Eliquis 2.5 mg b.i.d. for DVT prophylaxis. 6. Hydrochlorothiazide 6.25 mg q.a.m. 7. Alaway eye drops 1 drop into affected eye or eyes q.12 hours. 8. Protonix 40 mg q.a.m., which is substituted for omeprazole 20 mg daily that she takes at home. 9. Montelukast 10 mg q.a.m. 10. Multivitamin with minerals daily, which is substituting for PreserVision AREDS 2 tablets b.i.d. 11. Vitamin D 1000 units b.i.d. 12. Bisoprolol 10 mg q.a.m. 13. Zetia 10 mg q.h.s. 14. Zoloft 25 mg q.a.m. 15. Colace 100 mg b.i.d. 16. MiraLAX 17 g daily p.r.n. constipation. 17. Roxicodone 5 mg q.4 hours p.r.n. severe pain. 18. Tylenol is being scheduled 975 mg q.6 hours. 19. Polyvinyl alcohol 1.4% ophthalmic solution 1 drop both eyes q.2 hours p.r.n. 20. Senokot 2 tablets q.h.s. 21. Ultram 50 mg q.6 hours p.r.n. moderate pain. 22. Ventolin 2 puffs q.4 hours p.r.n. dyspnea. 23. Zofran 4 mg sublingual q.6 hours p.r.n. nausea. ALLERGIES: CODEINE, LATEX, MORPHINE, METAL, ATORVASTATIN, and TAPE. FAMILY HISTORY: Father, coronary artery disease and stroke. Mother, COPD. Brother, throat cancer. Sister, multiple sclerosis. Both of her siblings have had autoimmune type arthritis. SOCIAL HISTORY: She lives with her , Ac, who is her healthcare proxy if she cannot make decisions for herself. They live in a multi-story home with their cat and dog. The home has 3 steps to enter and she can stay on the first floor. She already has a hospital bed that she uses as day bed on the first floor for various medical conditions of her and her . There is a bathroom on that floor, which may not fit a wheelchair. 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 She retired 18 years ago. No smoking or alcohol. She enjoys photography, sewing, and walking. She usually works out at the [employer] in the pool 5 days per week as part of managing her post-polio syndrome. REVIEW OF SYSTEMS: See history of present illness and past medical history. She acknowledges she has been nauseated from pain medications and has vomited once this morning. She is trying to follow a vegetarian diet while here in the hospital as this seems to be better tolerated. She has not had a bowel movement since admission. The remainder of a 13-system review was completed. No other significant findings. PHYSICAL EXAMINATION GENERAL: Well developed, well nourished. Mental Status: No acute distress. Alert and oriented x3. VITAL SIGNS: Temperature 98.0, pulse 78, respirations 16, oxygenation 95% on room air, blood pressure 138/67. HEENT: Normocephalic, atraumatic. Oropharynx is clear with moist mucous membranes. She has bilateral hearing aids. NECK: Supple without lymphadenopathy. LUNGS: Clear to auscultation bilaterally. HEART: Regular rate and rhythm. ABDOMEN: Active bowel sounds. Soft, nontender, nondistended. EXTREMITIES: No clubbing, cyanosis, or edema in her right lower legs or both arms. Her left foot is dressed and Jamar wrapped. MUSCULOSKELETAL: She has functional range of motion of all of her major joints with limited testing of her right hip and knee as well as her left toes. Sensation is intact in all 4 extremities. NEUROLOGICAL: 5/5 strength in bilateral upper extremities with normal sensation. Right lower extremity, she shows 5/5 dorsiflexion, plantarflexion, and toe strength. She shows normal plantarflexion and dorsiflexion on the left. She has normal sensation in both lower extremities. Limited testing of the left toes secondary to recent surgery as well as the right hip and knee secondary to her fracture. LABORATORY DATA: On 09/12/19, white blood cell count 7.1, hemoglobin 11.8, hematocrit 35, platelets 248. Sodium 135, potassium 3.7, chloride 100, carbon dioxide 27, BUN 21, creatinine 1.22. IMPRESSION: A 74-year-old woman with right distal femur periprosthetic fracture and recent left foot surgery, who will be admitted to [facility] so she can return independently living with her . PLAN: 1. Right distal femur periprosthetic fracture. She is allowed to toe-touch weightbear to the right lower extremity, but must have a knee immobilizer on at all times. She is to follow up with Dr. Collazo in approximately 2 weeks. I will schedule Tylenol and allow tramadol and Roxycodone p.r.n. for more severe pains. A muscle relaxer will be added for muscle spasms. 2. Recent left foot surgery. She is to follow up with Dr. Andrew. He will see her tomorrow and possibly later this week to consider removal of additional pins. She remains on Bactrim twice per day. She can weightbear as tolerated through the left lower extremity with a short boot or postop shoe. Daily dressing changes. 3. Nausea and vomiting. Zofran p.r.n. Try to limit pain medicines by scheduling Tylenol. 4. Coronary artery disease. Continue with her current medications. 5. Hyperlipidemia. Continue with her current medications. 6. Asthma. Continue with her inhalers and montelukast. 7. GERD. Continue with Protonix substituting for omeprazole. 8. DVT prophylaxis: She is on Eliquis 2.5 mg b.i.d. per Orthopedics. 9. Advance directives: She is a full code. Her , Ac, is her healthcare proxy if she cannot make decisions for herself. Her daughter is secondary. ESTIMATED LENGTH OF STAY: 10 to 14 days and return home with services. She realizes she may be at a wheelchair level at the time of discharge. Her can assist with some tasks. [id number]/CPS #: [id number] LAILA
[2019-09-13] MEDS: Acetaminophen TAB* 325 MG PO SCH ×2 (16:08→19:43)
[2019-09-13] MEDS: Ondansetron ODT TAB* 4 MG SL PRN (16:11)
[2019-09-13] MEDS: Apixaban* 2.5 MG TAB PO SCH (21:23)
[2019-09-13] MEDS: Sulfamethox/Trimethoprim DS 800/160* TAB PO SCH (21:23)
[2019-09-13] MEDS: Cholecalciferol TAB* 1000 UNITS PO SCH (21:23)
[2019-09-13] MEDS: Senna TAB 8.6 mg* TAB PO SCH (21:23)
[2019-09-13] MEDS: Ezetimibe TAB* 10 MG PO SCH (21:24)
[2019-09-13] MEDS: Docusate CAP* 100 MG PO SCH (21:24)
[2019-09-13] MEDS: ALAWAY TOPICAL SCH (21:26)
[2019-09-13] MEDS: Mometasone/Formoter 200/5 MDI INH SCH (21:27)
[2019-09-13] MEDS: CMCS:Rosuvastatin (NF) 20 MG TAB PO SCH (21:33)
[2019-09-14] MEDS: Acetaminophen TAB* 325 MG PO SCH ×4 (00:40→19:01)
[2019-09-14 05:49] LABS: ABS Basophils 0.1 10^3/ul (0-0.2); ABS Eosinophils 0.3 10^3/ul (0-0.6); ABS Lymphocytes 1.5 10^3/ul (1.0-4.8); ABS Monocytes 0.5 10^3/ul (0-0.8); ABS Neutrophils 3.8 10^3/ul (1.5-7.7); Hematocrit 33 % (35-47); Hemoglobin 10.9 g/dL (12.0-16.0); Lymphocyte % 24.4 %; Mean Corpuscular HGB Conc 34 g/dL (31-36); Mean Corpuscular Hemoglobin 29 pg (27-31); Mean Corpuscular Volume 87 fL (80-97); Mean Platelet Volume 7.7 fL (7.4-10.4); Platelet Count 198 10^3/uL (150-450); Red Blood Count 3.76 10^6 /uL (3.70-4.87); Red Cell Distribution Width 15 % (10-15); White Blood Count 6.2 10^3/uL (3.5-10.8)
[2019-09-14 06:10] LABS: Albumin 3.9 g/dL (3.2-5.2); Albumin/Globulin Ratio 1.4 (1-3); BUN/Creatinine Ratio 18.1 (8-20); Calcium 8.6 mg/dL (8.6-10.3); EGFR Non-African American 51.2 (>60); Globulin 2.7 g/dL (2-4); Potassium 4.8 mmol/L (3.5-5.0); Total Bilirubin 0.4 mg/dL (0.2-1.0); Total Protein 6.6 g/dL (6.4-8.9)
[2019-09-14] MEDS: Apixaban* 2.5 MG TAB PO SCH ×2 (08:49→20:49)
[2019-09-14] MEDS: Aspirin EC TAB* 81 MG TAB.EC PO SCH (08:49)
[2019-09-14] MEDS: Cholecalciferol TAB* 1000 UNITS PO SCH ×2 (08:49→20:50)
[2019-09-14] MEDS: Docusate CAP* 100 MG PO SCH ×2 (08:49→20:49)
[2019-09-14] MEDS: Multivitamins/Minerals TAB PO SCH (08:50)
[2019-09-14] MEDS: Montelukast Sodium TAB* 10 MG PO SCH (08:50)
[2019-09-14] MEDS: Pantoprazole TAB * 40 MG TAB PO SCH (08:50)
[2019-09-14] MEDS: Ondansetron ODT TAB* 4 MG SL PRN (09:01)
[2019-09-14] MEDS: Hydrochlorothiazide TAB* 25 MG PO SCH (09:05)
[2019-09-14] MEDS: Bisoprolol TAB* 5 MG PO SCH (09:05)
[2019-09-14] MEDS: ALAWAY TOPICAL SCH ×2 (09:05→20:51)
[2019-09-14] MEDS: Mometasone/Formoter 200/5 MDI INH SCH ×2 (09:06→20:52)
[2019-09-14] MEDS: Sertraline* 25 MG TAB PO SCH (09:06)
[2019-09-14] MEDS: Sulfamethox/Trimethoprim DS 800/160* TAB PO SCH ×2 (09:07→20:49)
[2019-09-14] MEDS: Artificial Tears* 15 ML BTL BOTH EYES PRN ×2 (09:13→20:54)
[2019-09-14] MEDS: Methocarbamol TAB* 500 MG PO PRN ×2 (09:14→16:24)
[2019-09-14] MEDS: oxyCODONE TAB* 5 MG TAB PO PRN ×3 (11:36→21:15)
--- NOTE | 2019-09-14 20:42 | PN ---
Progress Note Date of Service: 09/14/19 Note: EUNICE MIXON was visited. Therapy notes read and reviewed. She has no specific complaints and has been doing okay but very worried about getting into her house. Current Medications: Active Medications Generic Name Dose Route Start Last Admin Trade Name Freq PRN Reason Stop Dose Admin Acetaminophen 975 mg 09/13/19 13:00 09/14/19 19:01 Tylenol Tab* PO 975 mg Q6H LINA Administration Al Hydrox/Mg Hydrox/Simethicone 30 ml 09/13/19 11:51 Maalox Plus* PO Q6H PRN INDIGESTION Albuterol 2 puff 09/13/19 12:11 Ventolin Hfa Inhaler* INH Q4H PRN SOB/WHEEZING Apixaban 2.5 mg 09/13/19 21:00 09/14/19 08:49 Eliquis* PO 2.5 mg BID LINA Administration Aspirin 81 mg 09/14/19 09:00 09/14/19 08:49 Aspirin Ec Tab* PO 81 mg DAILY LINA Administration Bisacodyl 10 mg 09/13/19 12:17 Dulcolax Supp* MT DAILY PRN CONSTIPATION Bisoprolol Fumarate 10 mg 09/14/19 09:00 09/14/19 09:05 Zebeta Tab* PO 10 mg DAILY LINA Administration Cholecalciferol 1,000 units 09/13/19 21:00 09/14/19 08:49 Vitamin D Tab* PO 1,000 units BID LINA Administration Docusate Sodium 100 mg 09/13/19 21:00 09/14/19 08:49 Colace Cap* PO 100 mg BID LINA Administration Ezetimibe 10 mg 09/13/19 21:00 09/13/19 21:24 Zetia Tab* PO 10 mg BEDTIME LINA Administration Hydrochlorothiazide 6.25 mg 09/14/19 09:00 09/14/19 09:05 Hydrodiuril Tab* PO 6.25 mg DAILY LINA Administration Methocarbamol 750 mg 09/13/19 12:15 09/14/19 16:24 Robaxin Tab* PO 750 mg Q6H PRN Administration SPASMS - MUSCLE Mometasone Furoate/Formoterol Fumar 2 puff 09/13/19 21:00 09/14/19 09:06 Dulera 200/5 Mdi* INH 2 puff BID LINA Administration Montelukast Sodium 10 mg 09/14/19 09:00 09/14/19 08:50 Singulair Tab* PO 10 mg DAILY LINA Administration Multivitamins/Minerals 1 tab 09/14/19 09:00 09/14/19 08:50 Theragran/Minerals Tab* PO 1 tab DAILY LINA Administration Pto:Non Formulary 1 drop 09/13/19 21:00 09/14/19 09:05 Med* (Alaway 1 Drop) TOPICAL 1 drop Q12H LINA Administration Ondansetron HCl 4 mg 09/13/19 12:11 09/14/19 09:01 Zofran Odt Tab* SL 4 mg Q6H PRN Administration NAUSEA/VOMITING Oxycodone HCl 5 mg 09/13/19 12:14 09/14/19 16:26 Roxycodone Tab* PO 5 mg Q4H PRN Administration PAIN - SEVERE Pantoprazole Sodium 40 mg 09/14/19 09:00 09/14/19 08:50 Protonix Tab* PO 40 mg DAILY LINA Administration Polyethylene Glycol/Electrolytes 17 gm 09/13/19 12:08 Miralax (17 Gm Dose Angel) PO DAILY PRN CONSTIPATION Polyvinyl Alcohol 1 drop 09/13/19 12:10 09/14/19 09:13 Polyvinyl Alcohol 1.4% Opth* BOTH EYES 1 drop Q2H PRN Administration DRY EYE Rosuvastatin Calcium 40 mg 09/13/19 21:00 09/13/19 21:33 Crestor (Nf) PO 40 mg BEDTIME LINA Administration Senna 2 tab 09/13/19 21:00 09/13/19 21:23 Senokot 8.6 Mg Tab* PO 2 tab BEDTIME LINA Administration Sertraline HCl 25 mg 09/14/19 09:00 09/14/19 09:06 Zoloft* PO 25 mg DAILY LINA Administration Tramadol HCl 50 mg 09/13/19 12:10 Ultram* PO Q6H PRN PAIN - MODERATE Trimethoprim/Sulfamethoxazole 1 tab 09/13/19 21:00 09/14/19 09:07 Bactrim Ds 800/160 Tab* PO 1 tab BID LINA Administration Vital Signs: Vital Signs Temp Pulse Resp BP Pulse Ox 98.6 F 75 18 114/56 95 09/14/19 17:00 09/14/19 17:00 09/14/19 19:17 09/14/19 17:00 09/14/19 17:00 Lab Results: Laboratory Results - last 24 hr 09/14/19 09/14/19 05:37 05:37 WBC 6.2 RBC 3.76 Hgb 10.9 L Hct 33 L MCV 87 MCH 29 MCHC 34 RDW 15 Plt Count 198 MPV 7.7 Neut % (Auto) 60.9 Lymph % (Auto) 24.4 Nance % (Auto) 8.7 Eos % (Auto) 5.0 Baso % (Auto) 1.0 Absolute Neuts (auto) 3.8 Absolute Lymphs (auto) 1.5 Absolute Monos (auto) 0.5 Absolute Eos (auto) 0.3 Absolute Basos (auto) 0.1 Absolute Nucleated RBC 0.0 Nucleated RBC % 0.0 Sodium 137 Potassium 4.8 Chloride 102 Carbon Dioxide 30 Anion Gap 5 BUN 19 Creatinine 1.05 H Est GFR ( Amer) 62.0 Est GFR (Non-Af Amer) 51.2 BUN/Creatinine Ratio 18.1 Glucose 100 Calcium 8.6 Total Bilirubin 0.40 AST 24 ALT 18 Alkaline Phosphatase 70 Total Protein 6.6 Albumin 3.9 Globulin 2.7 Albumin/Globulin Ratio 1.4 Exam: GENERAL: No apparent distress LUNGS: Clear bilaterally HEART: reg rhythm ABDOMEN: SOft, +BS EXTREMITIES: Left foot in boot with bandages, right thigh swollen NEUROLOGIC: sensation intact. Some leg weakness bilaterally, R>L, may be from polio or pain or both Assessment/Plan: 1. Right Distal femur periprosthetic fracture: TTWB RLE. Knee Immobilizer. PT/OT 2. 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 3. Post-polio: supportive care. PT/OT 4. CAD: ASA/Zebeta/Crestor 5. Asthma: Singulair/Dulera 6. DVT Prophylaxis: Eliquis 7. Advance Directives: Full code. is surrogate decision maker 09/14/19 20:45 09/14/19 20:46
[2019-09-14] MEDS: Senna TAB 8.6 mg* TAB PO SCH (20:49)
[2019-09-14] MEDS: Ezetimibe TAB* 10 MG PO SCH (20:49)
[2019-09-14] MEDS: CMCS:Rosuvastatin (NF) 20 MG TAB PO SCH (20:50)
[2019-09-15] MEDS: Acetaminophen TAB* 325 MG PO SCH ×4 (01:28→20:01)
[2019-09-15] MEDS: Methocarbamol TAB* 500 MG PO PRN ×2 (07:00→13:13)
[2019-09-15] MEDS: ALAWAY TOPICAL SCH ×2 (09:17→20:05)
[2019-09-15] MEDS: Apixaban* 2.5 MG TAB PO SCH ×2 (09:17→20:01)
[2019-09-15] MEDS: Aspirin EC TAB* 81 MG TAB.EC PO SCH (09:18)
[2019-09-15] MEDS: Bisoprolol TAB* 5 MG PO SCH (09:18)
[2019-09-15] MEDS: Cholecalciferol TAB* 1000 UNITS PO SCH ×2 (09:18→20:00)
[2019-09-15] MEDS: Hydrochlorothiazide TAB* 25 MG PO SCH (09:19)
[2019-09-15] MEDS: Docusate CAP* 100 MG PO SCH ×2 (09:19→20:01)
[2019-09-15] MEDS: Pantoprazole TAB * 40 MG TAB PO SCH (09:22)
[2019-09-15] MEDS: Multivitamins/Minerals TAB PO SCH (09:22)
[2019-09-15] MEDS: Sulfamethox/Trimethoprim DS 800/160* TAB PO SCH ×2 (09:22→20:00)
[2019-09-15] MEDS: Montelukast Sodium TAB* 10 MG PO SCH (09:22)
[2019-09-15] MEDS: Sertraline* 25 MG TAB PO SCH (09:23)
[2019-09-15] MEDS: Mometasone/Formoter 200/5 MDI INH SCH ×2 (09:24→20:04)
[2019-09-15] MEDS: oxyCODONE TAB* 5 MG TAB PO PRN (10:26)
--- NOTE | 2019-09-15 12:43 | PMRUTEAM ---
PMRU: Team Meeting Current Status: Physical Therapy: Current Status Current Rolling Status Partial/Moderate Current Supine <-> Sit Status Partial/Moderate Current Sit <-> Stand Status Supervision/Touching Current Bed <-> Chair Status Partial/Moderate Transfer/Bed Mobility Rolling Walker Recommended Devices Current Picking Up Object Not attempted Status Current Car Transfer Status Not attempted Current Ambulation Assistance Not attempted Status Current Stair Climbing Status Not attempted Current Curb Assistance Status Not attempted Occupational Therapy: Current Status Current Upper Body Dressing Setup or Clean-up Assist Status Current Lower Body Dressing Substantial/Maximal Status Current Footwear Status Dependent Current Bathing Status Partial/Moderate Current Grooming Status Setup or Clean-up Assist Current Toileting Status Substantial/Maximal Current Toilet Transfer Status Partial/Moderate Current Eating Status Independent Nursing: Current Status Skin Deviations [Right knee Other Dressing] Skin Deviations [Left Foot Other Pinning] Skin Deviations [Right Knee] Abrasion Skin Deviation Description [ immobilizer in place per order Right knee Dressing] Skin Deviation Description [ pin in third, fourth and fifth toes Left Foot Pinning] Skin Deviation Description [ distal knee abrasion, optifoam in place Right Knee] Rec Therapy: Current Status Summary of Assessment and Recreation therapy assessment is complete and pt Clinical Impression is aware of services. Pt expressed interest in pet therapy and is open to continued leisure visits. Treatment Goals Pt will engage in leisure activities while on the unit, as tolerated Treatment Plan Provide recreation therapy services and encourage involvement. Social Work: Current Status Discharge Plan return home with home care svs and family support Potential for Family Training pt's is involved and supportive Anticipated Discharge Home Destination Discharge With home care svs and family support Nutrition: Current Status Monitoring pt eating well; consuming 75-100% of most meals ( regular/vegetarian diet). Pt reports she had decreased appetite yesterday d/t recent n/v, which has now resolved. States she is focusuing on protein; happy with vegetarian options on menu. Reports a recent ~5 lb wt loss; unintentional r/t decreased appetite following fx and pain meds. She is not concerned by this however, as she does desire some weight loss and feels her appetite has returned now. BMs 09/14, 09/15. Appears to be meeting nutrition goals as outlined below. Goals: Physical Therapy: Goals Goals to Be Accomplished in ( 10 Days) Goal: Rolling Assistance Independent Goal Supine <-> Sit Status Independent Goal Sit <-> Stand Status Independent Goal Bed <-> Chair Status Independent Transfer/Bed Mobility None,Rolling Walker Recommended Devices Goal: Picking Up Object Independent Goal: Car Transfer Status Setup or Clean-up Assist Goal: Ambulation Assistance Independent Ambulation Assistive Devices Rolling Walker Ambulation Distance (ft) 4 Goal: Wheelchair Propulsion Independent Ability Wheelchair Distance (ft) 150 Goal: Stairs Assistance Not Applicable Stairs Recommended Devices Two Rails Number of Stairs 3 Occupational Therapy: Goals Goals to be Completed in (Days 7-10 ) Goal Upper Body Dressing Independent Routine Goal Lower Body Dressing Independent Routine Goal Footwear Status Independent Goal Bathing Routine (OT) Setup or Clean-up Assist Goal Grooming Routine Independent Goal Toilet Hygiene and Independent Clothing Management Routine Goal Toilet Transfer Routine Independent Goal Functional Transfers for Independent ADL Goal Feeding Routine Independent Nutrition: Goals Intervention Goals 1. adequate intake to support hydration and lean body mass without significant wt change 2. maintain serum electrolytes WNL 3. regulation of bowel pattern; no c/o constipation (or diarrhea) Social Work: Goals Discharge Plan return home with home care svs and family support Potential for Family Training pt's is involved and supportive Anticipated Discharge Home Destination Discharge With home care svs and family support Care Plan: Care Plan ADL's - Improve/Maintain Start: 09/13/19 18:20 Freq: DAILY@0700,1900 Status: Active Target: 09/14/19 Protocol: Activity Type Activity Date Activity User E-Sign Co-Sign Detail Recorded Client Recorded Date Recorded By Document 09/14/19 10:34 [id number] [email or web address] 09/14/19 10:35 [id number] 09/14/19 10:34 PMRU Outcome: ADL's/ADL Transfers Orders/Interventions Occupational Therapy Evaluation & Treatment Communication Tool in Patient Room Device Yes Address Deficits Secondary To: R periprosthetic fx s/p fall Patient to receive OT 5x/wk for 60-120 Therex min/day Self Care Management Group Therapy UE/LE ADL's with Assist Yes: independent, setup for bathing ADL Transfers with Assist Yes: independent Toileting: Transfers,Clothing Management Yes: ,Hygeine w/Assist independent Other Outcome/Goals Pt is a 74 year old female s/p fall with Right distal periprosthetic femur fx with TTWB RLE precautions and to have knee immobilizer in place for RLE AAT, as well as WBAT for LLE with postop shoe in place. Pt completed bed mobility supine to sit with Angel for RLE, able to complete SPT EOB to recliner chair with FWW and gait belt with CGA-Angel x 1 during evaluation and participated in ADL routine with assistance as described above. Pt currently with limited WB status, pain from muscle spasms in right thigh, knee immobilizer in place, decreased balance due to TTWB all of which limits independence with bathing, dressing, toileting, and transfers at this time. Pt will benefit from skilled OT intervention to maximize independence and safety prior to d/c home with support from spouse. Progression Toward Outcome/Goals Goal Initiation DVT Prophylaxis- Improve/Maintain Start: 09/13/19 18:20 Freq: DAILY@[id number] Status: Active Target: 09/25/19 Protocol: Activity Type Activity Date Activity User E-Sign Co-Sign Detail Recorded Client Recorded Date Recorded By Document 09/15/19 07:00 [id number] [id number] 09/15/19 11:55 [id number] 09/15/19 07:00 PMRU Outcome: DVT Prophylaxis Current DVT Outcome/Goals Remains Free of DVT Free of complications from current DVT Complies with DVT Prophylaxis /Treatment Demonstrates Knowledge of DVT Prevention/ Treatment Progression Toward Outcome/Goals Progressing Discharge Planning - Improve/Maintain Start: 09/13/19 18:20 Freq: DAILY@[id number] Status: Active Target: 09/25/19 Protocol: Activity Type Activity Date Activity User E-Sign Co-Sign Detail Recorded Client Recorded Date Recorded By Document 09/15/19 07:00 [id number] [id number] 09/15/19 11:55 [id number] 09/15/19 07:00 PMRU Outcome: Discharge Planning Update Patient Family No Current Discharge Planning Outcome/Goals Demonstrates Understanding of Discharge Plan Progression Toward Outcome/Goals Progressing Education-Improve/Maintain Start: 09/13/19 18:20 Freq: DAILY@[id number] Status: Active Target: 09/25/19 Protocol: Activity Type Activity Date Activity User E-Sign Co-Sign Detail Recorded Client Recorded Date Recorded By Document 09/15/19 07:00 [id number] [email or web address] 09/15/19 11:55 [id number] 09/15/19 07:00 PMRU Outcome: Education Current Education Outcome/Goals Demonstrate/ Verbalize Understanding of Written Discharge Instructions Demonstrates Skills Encourage Questions Progression Toward Outcome/Goals Progressing /GI-Improve/Maintain Start: 09/13/19 18:20 Freq: DAILY@[id number] Status: Active Target: 09/25/19 Protocol: Activity Type Activity Date Activity User E-Sign Co-Sign Detail Recorded Client Recorded Date Recorded By Document 09/15/19 07:00 [id number] [email or web address] 09/15/19 11:55 [id number] 09/15/19 07:00 PMRU Outcome: Genitourinary/ Gastrointestinal Current Gastrointestinal Outcome/Goals Maintain/ Achieve Bowel Regularity in Accordance with Pt's Baseline Prevent Constipation Laxatives as Ordered Progression Toward Outcome/Goals Progressing Current Genitourinary Outcome/Goals Maintain/ Achieve Urinary Continence Remain Free of Hospital- Acquired UTI Progression Toward Outcome/Goals Progressing Infection-Improve/Maintain Start: 09/13/19 15:46 Freq: DAILY@[id number] Status: Active Target: 09/25/19 Protocol: Activity Type Activity Date Activity User E-Sign Co-Sign Detail Recorded Client Recorded Date Recorded By Document 09/15/19 07:00 [id number] 09/15/19 11:55 [id number] 09/15/19 07:00 Outcome: Infection Current Infection Outcome/Goals Remain Free of Infection Understand Infection Prevention Strategies Progression Toward Outcome/Goals Progressing Mobility-Improve/Maintain Start: 09/13/19 15:46 Freq: DAILY@[id number] Status: Complete Target: 09/13/19 Protocol: Activity Type Activity Date Activity User E-Sign Co-Sign Detail Recorded Client Recorded Date Recorded By Document 09/13/19 19:00 [id number] 09/13/19 22:46 [id number] 09/13/19 19:00 Outcome: Mobility Current Mobility Outcome/Goals Maintain/ Achieve Baseline Mobility Status Improve Mobility Status Demonstrates Proper Use of Assistive Devices Progression Toward Outcome/Goals Goal Initiation Pain/Comfort- Improve/Maintain Start: 09/13/19 18:20 Freq: DAILY@699,1900 Status: Active Target: 09/25/19 Protocol: Activity Type Activity Date Activity User E-Sign Co-Sign Detail Recorded Client Recorded Date Recorded By Document 09/15/19 07:00 [id number] 09/15/19 11:55 [id number] 09/15/19 07:00 PMRU Outcome: Pain/Comfort Current Pain/Comfort Outcome/Goals Demonstrates Knowledge and Use of Available Comfort Measures Achieves Acceptable Comfort/Pain Level as Determined by Patient/Condit Maintain Comfort Level Allowing Patient to Fully Participate in Rehab Progression Toward Outcome/Goals Progressing Pain/Comfort-Improve/Maintain Start: 09/13/19 15:46 Freq: DAILY@0700,1900 Status: Complete Target: 09/25/19 Protocol: Activity Type Activity Date Activity User E-Sign Co-Sign Detail Recorded Client Recorded Date Recorded By Document 09/15/19 01:47 [id number] [email or web address] 09/15/19 01:47 [id number] 09/15/19 01:47 Outcome: Pain/Comfort Current Pain Outcome/Goals Demonstrates Knowledge and Use of Available Comfort Measures Achieves Acceptable Comfort/Pain Level as Determined by Patient/Condit Progression Toward Outcome/Goals Progressing Rec Therapy- Improve/Maintain Start: 09/14/19 16:32 Freq: DAILY@[id number] Status: Active Target: 09/15/19 Protocol: Activity Type Activity Date Activity User E-Sign Co-Sign Detail Recorded Client Recorded Date Recorded By Document 09/14/19 16:32 [id number] [email or web address] 09/14/19 16:33 [id number] 09/14/19 16:32 PMRU Outcome: Recreation Therapy Current Rec Ther Outcome/Goals Complete Rec Therapy Assessment Meet with Patient Regularly for Support Encourage Leisure Involvement Progression Toward Outcome/Goals Goal Initiation Outcome/Goals Met Complete Rec Therapy Assessment Outcome/Goals Met Comment Recreation therapy assessment complete Respiratory-Improve/Maintain Start: 09/13/19 15:46 Freq: DAILY@0700,190 Status: Complete Target: 09/13/19 Protocol: Activity Type Activity Date Activity User E-Sign Co-Sign Detail Recorded Client Recorded Date Recorded By Document 09/13/19 15:48 [id number] [email or web address] 09/13/19 15:49 [id number] 09/13/19 15:48 Outcome: Respiratory Current Respiratory Outcome/Goals Maintain/ Improve O2 Sat per MD Order Progression Toward Outcome/Goals Goal Initiation Safety- Improve/Maintain Start: 09/13/19 14:11 Freq: DAILY@0700,1900 Status: Active Target: 09/25/19 Protocol: Activity Type Activity Date Activity User E-Sign Co-Sign Detail Recorded Client Recorded Date Recorded By Document 09/15/19 07:00 [id number] 09/15/19 11:55 [id number] 09/15/19 07:00 PMRU Outcome: Safety Current Safety Outcome/Goals Remain Free of Injury or Harm Cooperates with Safety Measures for Least Restrictive Environment Prevent Falls/ Injury Progression Toward Outcome/Goals Progressing Skin- Improve/Maintain Start: 09/13/19 18:20 Freq: DAILY@0700,1900 Status: Active Target: 09/25/19 Protocol: Activity Type Activity Date Activity User E-Sign Co-Sign Detail Recorded Client Recorded Date Recorded By Document 09/15/19 07:00 [id number] 09/15/19 11:55 [id number] 09/15/19 07:00 PMRU Outcome: Skin Skin Risk Level Mild Risk Skin Orders Dressing Change Other Skin Orders Comment immobilizer to RLE Current Skin Outcome/Goals Maintain/ Improve Skin Integrity Free from Pressure Injury Progression Toward Outcome/Goals Progressing - Interdisciplinary Staff Present Pump Erector/Social Work Staff Present: Tiana Lozada LMSW Nursing Staff Present: Yadira Martell RN OT Staff Present: Louise Tripp PT Staff Present: Fausto Owens FLUID DESIGNER Staff Present: Rodri Matos - . Medicine Note: Length of Stay: 10 days Anticipated Discharge Destination: Home Tentative Discharge Date: 09/25/19 Discharged to: Home
[2019-09-15] MEDS: Ondansetron ODT TAB* 4 MG SL PRN (13:13)
--- NOTE | 2019-09-15 19:35 | PN ---
Progress Note Date of Service: 09/15/19 Note: EUNICE MIXON was visited. Therapy notes read and reviewed. She was discussed in interdisciplinary team rounds. She feels like one of her pins may be pushing and may need to come out. I will ask Dr. Andrew to see. Current Medications: Active Medications Generic Name Dose Route Start Last Admin Trade Name Freq PRN Reason Stop Dose Admin Acetaminophen 975 mg 09/13/19 13:00 09/15/19 13:12 Tylenol Tab* PO 975 mg Q6H LINA Administration Al Hydrox/Mg Hydrox/Simethicone 30 ml 09/13/19 11:51 Maalox Plus* PO Q6H PRN INDIGESTION Albuterol 2 puff 09/13/19 12:11 Ventolin Hfa Inhaler* INH Q4H PRN SOB/WHEEZING Apixaban 2.5 mg 09/13/19 21:00 09/15/19 09:17 Eliquis* PO 2.5 mg BID LINA Administration Aspirin 81 mg 09/14/19 09:00 09/15/19 09:18 Aspirin Ec Tab* PO 81 mg DAILY LINA Administration Bisacodyl 10 mg 09/13/19 12:17 Dulcolax Supp* [place] DAILY PRN CONSTIPATION Bisoprolol Fumarate 10 mg 09/14/19 09:00 09/15/19 09:18 Zebeta Tab* PO 10 mg DAILY LINA Administration Cholecalciferol 1,000 units 09/13/19 21:00 09/15/19 09:18 Vitamin D Tab* PO 1,000 units BID LINA Administration Docusate Sodium 100 mg 09/13/19 21:00 09/15/19 09:19 Colace Cap* PO 100 mg BID LINA Administration Ezetimibe 10 mg 09/13/19 21:00 09/14/19 20:49 Zetia Tab* PO 10 mg BEDTIME LINA Administration Hydrochlorothiazide 6.25 mg 09/14/19 09:00 09/15/19 09:19 Hydrodiuril Tab* PO 6.25 mg DAILY LINA Administration Methocarbamol 750 mg 09/13/19 12:15 09/15/19 13:13 Robaxin Tab* PO 750 mg Q6H PRN Administration SPASMS - MUSCLE Mometasone Furoate/Formoterol Fumar 2 puff 09/13/19 21:00 09/15/19 09:24 Dulera 200/5 Mdi* INH 2 puff BID LINA Administration Montelukast Sodium 10 mg 09/14/19 09:00 09/15/19 09:22 Singulair Tab* PO 10 mg DAILY LINA Administration Multivitamins/Minerals 1 tab 09/14/19 09:00 09/15/19 09:22 Theragran/Minerals Tab* PO 1 tab DAILY LINA Administration Pto:Non Formulary 1 drop 09/13/19 21:00 09/15/19 09:17 Med* (Alaway 1 Drop) TOPICAL 1 drop Q12H LINA Administration Ondansetron HCl 4 mg 09/13/19 12:11 09/15/19 13:13 Zofran Odt Tab* SL 4 mg Q6H PRN Administration NAUSEA/VOMITING Oxycodone HCl 5 mg 09/13/19 12:14 09/15/19 10:26 Roxycodone Tab* PO 5 mg Q4H PRN Administration PAIN - SEVERE Pantoprazole Sodium 40 mg 09/14/19 09:00 09/15/19 09:22 Protonix Tab* PO 40 mg DAILY LINA Administration Polyethylene Glycol/Electrolytes 17 gm 09/13/19 12:08 Miralax (17 Gm Dose Angel) PO DAILY PRN CONSTIPATION Polyvinyl Alcohol 1 drop 09/13/19 12:10 09/14/19 20:54 Polyvinyl Alcohol 1.4% Opth* BOTH EYES 1 drop Q2H PRN Administration DRY EYE Rosuvastatin Calcium 40 mg 09/13/19 21:00 09/14/19 20:50 Crestor (Nf) PO 40 mg BEDTIME LINA Administration Senna 2 tab 09/13/19 21:00 09/14/19 20:49 Senokot 8.6 Mg Tab* PO 2 tab BEDTIME LINA Administration Sertraline HCl 25 mg 09/14/19 09:00 09/15/19 09:23 Zoloft* PO 25 mg DAILY LINA Administration Tramadol HCl 50 mg 09/13/19 12:10 Ultram* PO Q6H PRN PAIN - MODERATE Trimethoprim/Sulfamethoxazole 1 tab 09/13/19 21:00 09/15/19 09:22 Bactrim Ds 800/160 Tab* PO 1 tab BID LINA Administration Vital Signs: Vital Signs Temp Pulse Resp BP Pulse Ox 98.1 F 72 18 113/51 95 09/15/19 14:41 09/15/19 14:41 09/15/19 16:08 09/15/19 14:41 09/15/19 18:08 Exam: GENERAL: No apparent distress LUNGS: Clear bilaterally HEART: reg rhythm ABDOMEN: SOft, +BS EXTREMITIES: Left foot in boot with bandages, right thigh swollen NEUROLOGIC: sensation intact. Some leg weakness bilaterally, R>L, may be from polio or pain or both Assessment/Plan: 1. Right Distal femur periprosthetic fracture: TTWB RLE. Knee Immobilizer. PT/OT 2. 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 3. Post-polio: supportive care. PT/OT 4. CAD: ASA/Zebeta/Crestor 5. Asthma: Singulair/Dulera 6. DVT Prophylaxis: Eliquis 7. Advance Directives: Full code. is surrogate decision maker 09/15/19 19:35
[2019-09-15] MEDS: Ezetimibe TAB* 10 MG PO SCH (20:00)
[2019-09-15] MEDS: CMCS:Rosuvastatin (NF) 20 MG TAB PO SCH (20:01)
[2019-09-15] MEDS: Senna TAB 8.6 mg* TAB PO SCH (20:01)
[2019-09-15] MEDS: Artificial Tears* 15 ML BTL BOTH EYES PRN (20:06)
[2019-09-16] MEDS: oxyCODONE TAB* 5 MG TAB PO PRN ×2 (00:37→08:42)
[2019-09-16] MEDS: Acetaminophen TAB* 325 MG PO SCH ×4 (00:38→19:55)
[2019-09-16] MEDS: Bisoprolol TAB* 5 MG PO SCH (08:37)
[2019-09-16] MEDS: Aspirin EC TAB* 81 MG TAB.EC PO SCH (08:37)
[2019-09-16] MEDS: ALAWAY TOPICAL SCH ×2 (08:37→19:56)
[2019-09-16] MEDS: Apixaban* 2.5 MG TAB PO SCH ×2 (08:37→19:55)
[2019-09-16] MEDS: Docusate CAP* 100 MG PO SCH ×2 (08:38→19:57)
[2019-09-16] MEDS: Hydrochlorothiazide TAB* 25 MG PO SCH (08:38)
[2019-09-16] MEDS: Mometasone/Formoter 200/5 MDI INH SCH ×2 (08:38→20:04)
[2019-09-16] MEDS: Cholecalciferol TAB* 1000 UNITS PO SCH ×2 (08:38→19:55)
[2019-09-16] MEDS: Sulfamethox/Trimethoprim DS 800/160* TAB PO SCH ×2 (08:39→19:58)
[2019-09-16] MEDS: Pantoprazole TAB * 40 MG TAB PO SCH (08:39)
[2019-09-16] MEDS: Montelukast Sodium TAB* 10 MG PO SCH (08:39)
[2019-09-16] MEDS: Multivitamins/Minerals TAB PO SCH (08:39)
[2019-09-16] MEDS: Ondansetron ODT TAB* 4 MG SL PRN (08:42)
[2019-09-16] MEDS: Sertraline* 25 MG TAB PO SCH (08:55)
[2019-09-16] MEDS: Artificial Tears* 15 ML BTL BOTH EYES PRN ×2 (09:13→19:56)
[2019-09-16] MEDS: Al Hydrox/Mg Hydrox/Simet LIQ* 30 ML UDC PO PRN (17:44)
--- NOTE | 2019-09-16 18:33 | PN ---
Progress Note Date of Service: 09/16/19 Note: EUNICE MIXON was visited. Therapy notes read and reviewed. We will try to call Dr. Andrew about her pins as her pin in her 5th digit appears bent. Otherwise doing ok Current Medications: Active Medications Generic Name Dose Route Start Last Admin Trade Name Freq PRN Reason Stop Dose Admin Acetaminophen 975 mg 09/13/19 13:00 09/16/19 13:17 Tylenol Tab* PO 975 mg Q6H LINA Administration Al Hydrox/Mg Hydrox/Simethicone 30 ml 09/13/19 11:51 09/16/19 17:44 Maalox Plus* PO 30 ml Q6H PRN Administration INDIGESTION Albuterol 2 puff 09/13/19 12:11 Ventolin Hfa Inhaler* INH Q4H PRN SOB/WHEEZING Apixaban 2.5 mg 09/13/19 21:00 09/16/19 08:37 Eliquis* PO 2.5 mg BID LINA Administration Aspirin 81 mg 09/14/19 09:00 09/16/19 08:37 Aspirin Ec Tab* PO 81 mg DAILY LINA Administration Bisacodyl 10 mg 09/13/19 12:17 Dulcolax Supp* [place] DAILY PRN CONSTIPATION Bisoprolol Fumarate 10 mg 09/14/19 09:00 09/16/19 08:37 Zebeta Tab* PO 10 mg DAILY LINA Administration Cholecalciferol 1,000 units 09/13/19 21:00 09/16/19 08:38 Vitamin D Tab* PO 1,000 units BID LINA Administration Docusate Sodium 100 mg 09/13/19 21:00 09/16/19 08:38 Colace Cap* PO 100 mg BID LINA Administration Ezetimibe 10 mg 09/13/19 21:00 09/15/19 20:00 Zetia Tab* PO 10 mg BEDTIME LINA Administration Hydrochlorothiazide 6.25 mg 09/14/19 09:00 09/16/19 08:38 Hydrodiuril Tab* PO 6.25 mg DAILY LINA Administration Methocarbamol 750 mg 09/13/19 12:15 09/15/19 13:13 Robaxin Tab* PO 750 mg Q6H PRN Administration SPASMS - MUSCLE Mometasone Furoate/Formoterol Fumar 2 puff 09/13/19 21:00 09/16/19 08:38 Dulera 200/5 Mdi* INH 2 puff BID LINA Administration Montelukast Sodium 10 mg 09/14/19 09:00 09/16/19 08:39 Singulair Tab* PO 10 mg DAILY LINA Administration Multivitamins/Minerals 1 tab 09/14/19 09:00 09/16/19 08:39 Theragran/Minerals Tab* PO 1 tab DAILY LINA Administration Pto:Non Formulary 1 drop 09/13/19 21:00 09/16/19 08:37 Med* ([place] 1 Drop) TOPICAL 1 drop Q12H LINA Administration Ondansetron HCl 4 mg 09/13/19 12:11 09/16/19 08:42 Zofran Odt Tab* SL 4 mg Q6H PRN Administration NAUSEA/VOMITING Oxycodone HCl 5 mg 09/13/19 12:14 09/16/19 08:42 Roxycodone Tab* PO 5 mg Q4H PRN Administration PAIN - SEVERE Pantoprazole Sodium 40 mg 09/14/19 09:00 09/16/19 08:39 Protonix Tab* PO 40 mg DAILY LINA Administration Polyethylene Glycol/Electrolytes 17 gm 09/13/19 12:08 Miralax (17 Gm Dose Angel) PO DAILY PRN CONSTIPATION Polyvinyl Alcohol 1 drop 09/13/19 12:10 09/16/19 09:13 Polyvinyl Alcohol 1.4% Opth* BOTH EYES 1 drop Q2H PRN Administration DRY EYE Rosuvastatin Calcium 40 mg 09/13/19 21:00 09/15/19 20:01 Crestor (Nf) PO 40 mg BEDTIME LINA Administration Senna 2 tab 09/13/19 21:00 09/15/19 20:01 Senokot 8.6 Mg Tab* PO 2 tab BEDTIME LINA Administration Sertraline HCl 25 mg 09/14/19 09:00 09/16/19 08:55 Zoloft* PO 25 mg DAILY LINA Administration Tramadol HCl 50 mg 09/13/19 12:10 Ultram* PO Q6H PRN PAIN - MODERATE Trimethoprim/Sulfamethoxazole 1 tab 09/13/19 21:00 09/16/19 08:39 Bactrim Ds 800/160 Tab* PO 1 tab BID LINA Administration Vital Signs: Vital Signs Temp Pulse Resp BP Pulse Ox 98.2 F 76 22 127/58 97 09/16/19 17:06 09/16/19 17:06 09/16/19 17:06 09/16/19 17:06 09/16/19 17:21 Exam: GENERAL: No apparent distress LUNGS: Clear bilaterally HEART: reg rhythm ABDOMEN: SOft, +BS EXTREMITIES: Left foot in boot with bandages, right thigh swollen NEUROLOGIC: sensation intact. Some leg weakness bilaterally, R>L, may be from polio or pain or both Assessment/Plan: 1. Right Distal femur periprosthetic fracture: TTWB RLE. Knee Immobilizer. PT/OT 2. 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 3. Post-polio: supportive care. PT/OT 4. CAD: ASA/Zebeta/Crestor 5. Asthma: Singulair/Dulera 6. DVT Prophylaxis: Eliquis 7. Advance Directives: Full code. is surrogate decision maker 09/16/19 18:34
[2019-09-16] MEDS: Senna TAB 8.6 mg* TAB PO SCH (19:57)
[2019-09-16] MEDS: Ezetimibe TAB* 10 MG PO SCH (19:58)
[2019-09-16] MEDS: CMCS:Rosuvastatin (NF) 20 MG TAB PO SCH (19:58)
[2019-09-17] MEDS: Acetaminophen TAB* 325 MG PO SCH ×4 (01:27→18:58)
[2019-09-17] MEDS: oxyCODONE TAB* 5 MG TAB PO PRN (02:17)
[2019-09-17] MEDS: Ondansetron ODT TAB* 4 MG SL PRN (08:06)
[2019-09-17] MEDS: ALAWAY TOPICAL SCH ×2 (09:40→20:52)
[2019-09-17] MEDS: Apixaban* 2.5 MG TAB PO SCH ×2 (09:40→20:51)
[2019-09-17] MEDS: Aspirin EC TAB* 81 MG TAB.EC PO SCH (09:40)
[2019-09-17] MEDS: Bisoprolol TAB* 5 MG PO SCH (09:40)
[2019-09-17] MEDS: Docusate CAP* 100 MG PO SCH ×2 (09:41→20:50)
[2019-09-17] MEDS: Montelukast Sodium TAB* 10 MG PO SCH (09:41)
[2019-09-17] MEDS: Multivitamins/Minerals TAB PO SCH (09:41)
[2019-09-17] MEDS: Cholecalciferol TAB* 1000 UNITS PO SCH ×2 (09:41→20:50)
[2019-09-17] MEDS: Hydrochlorothiazide TAB* 25 MG PO SCH (09:41)
[2019-09-17] MEDS: Mometasone/Formoter 200/5 MDI INH SCH ×2 (09:41→20:51)
[2019-09-17] MEDS: Sulfamethox/Trimethoprim DS 800/160* TAB PO SCH ×2 (09:42→20:51)
[2019-09-17] MEDS: Sertraline* 25 MG TAB PO SCH (09:42)
[2019-09-17] MEDS: Pantoprazole TAB * 40 MG TAB PO SCH (09:42)
--- NOTE | 2019-09-17 12:09 | PN ---
Progress Note - Progress Note Date of Service: 09/17/19 SOAP: Subjective: []Pt seen and examined at bedside in PMRU. Immobilizer is quite bothersome causing skin irritation. Pins in toes are painful. Objective: []Gen: nontoxic appearing, nad RLE: Immobilizer in place, rubbing along medial side as well as posterior proximal with skin redness no open wounds. Calf supple and nontender LLE: pins removed from toes 3,4,5 and bandaides placed. There was a small amount of bleeding, no purulence. 3rd digit with mild erythema on the plantar aspect, nontender to palpation. Assessment: []Left forefoot surgery with pin removal today R periprosthetic distal femur fracture Plan: []Not tolerating immobilizer, will give order IROM locked in extension Continue bactrim a few more days, if there is worsening redness or any discharge alert orthopedics/ID LLE wbat in post op shoe or short boot which was ordered RLE TTWB, IROM ordered locked in extension
[2019-09-17] MEDS: Al Hydrox/Mg Hydrox/Simet LIQ* 30 ML UDC PO PRN (12:58)
--- NOTE | 2019-09-17 19:37 | PN ---
Progress Note Date of Service: 09/17/19 Note: EUNICE MIXON was visited. Therapy notes read and reviewed. Ortho removed the pins and ordered an IROM brace instaed of the knee immobilizer, which was rubbing against her skin. She has no complaints otherwise, and now has a boot instead of her post-op shoe. Current Medications: Active Medications Generic Name Dose Route Start Last Admin Trade Name Freq PRN Reason Stop Dose Admin Acetaminophen 975 mg 09/13/19 13:00 09/17/19 18:58 Tylenol Tab* PO 975 mg Q6H LINA Administration Al Hydrox/Mg Hydrox/Simethicone 30 ml 09/13/19 11:51 09/17/19 12:58 Maalox Plus* PO 30 ml Q6H PRN Administration INDIGESTION Albuterol 2 puff 09/13/19 12:11 Ventolin Hfa Inhaler* INH Q4H PRN SOB/WHEEZING Apixaban 2.5 mg 09/13/19 21:00 09/17/19 09:40 Eliquis* PO 2.5 mg BID LINA Administration Aspirin 81 mg 09/14/19 09:00 09/17/19 09:40 Aspirin Ec Tab* PO 81 mg DAILY LINA Administration Bisacodyl 10 mg 09/13/19 12:17 Dulcolax Supp* ID DAILY PRN CONSTIPATION Bisoprolol Fumarate 10 mg 09/14/19 09:00 09/17/19 09:40 Zebeta Tab* PO 10 mg DAILY LINA Administration Cholecalciferol 1,000 units 09/13/19 21:00 09/17/19 09:41 Vitamin D Tab* PO 1,000 units BID LINA Administration Docusate Sodium 100 mg 09/13/19 21:00 09/17/19 09:41 Colace Cap* PO Not Given BID LINA Ezetimibe 10 mg 09/13/19 21:00 09/16/19 19:58 Zetia Tab* PO 10 mg BEDTIME LINA Administration Hydrochlorothiazide 6.25 mg 09/14/19 09:00 09/17/19 09:41 Hydrodiuril Tab* PO 6.25 mg DAILY LINA Administration Lactobacillus Rhamnosus 1 tab 09/18/19 09:00 Lactobacillus Acidophilus* PO DAILY LINA Methocarbamol 750 mg 09/13/19 12:15 09/15/19 13:13 Robaxin Tab* PO 750 mg Q6H PRN Administration SPASMS - MUSCLE Mometasone Furoate/Formoterol Fumar 2 puff 09/13/19 21:00 09/17/19 09:41 Dulera 200/5 Mdi* INH 2 puff BID LINA Administration Montelukast Sodium 10 mg 09/14/19 09:00 09/17/19 09:41 Singulair Tab* PO 10 mg DAILY LINA Administration Multivitamins/Minerals 1 tab 09/14/19 09:00 09/17/19 09:41 Theragran/Minerals Tab* PO 1 tab DAILY LINA Administration Pto:Non Formulary 1 drop 09/13/19 21:00 09/17/19 09:40 Med* ([place] 1 Drop) TOPICAL 1 drop Q12H LINA Administration Ondansetron HCl 4 mg 09/13/19 12:11 09/17/19 08:06 Zofran Odt Tab* SL 4 mg Q6H PRN Administration NAUSEA/VOMITING Oxycodone HCl 5 mg 09/13/19 12:14 09/17/19 02:17 Roxycodone Tab* PO 5 mg Q4H PRN Administration PAIN - SEVERE Pantoprazole Sodium 40 mg 09/14/19 09:00 09/17/19 09:42 Protonix Tab* PO 40 mg DAILY LINA Administration Polyethylene Glycol/Electrolytes 17 gm 09/13/19 12:08 Miralax (17 Gm Dose Angel) PO DAILY PRN CONSTIPATION Polyvinyl Alcohol 1 drop 09/13/19 12:10 09/16/19 19:56 Polyvinyl Alcohol 1.4% Opth* BOTH EYES 1 drop Q2H PRN Administration DRY EYE Rosuvastatin Calcium 40 mg 09/13/19 21:00 09/16/19 19:58 Crestor (Nf) PO 40 mg BEDTIME LINA Administration Senna 2 tab 09/13/19 21:00 09/16/19 19:57 Senokot 8.6 Mg Tab* PO 2 tab BEDTIME LINA Administration Sertraline HCl 25 mg 09/14/19 09:00 09/17/19 09:42 Zoloft* PO 25 mg DAILY LINA Administration Tramadol HCl 50 mg 09/13/19 12:10 Ultram* PO Q6H PRN PAIN - MODERATE Trimethoprim/Sulfamethoxazole 1 tab 09/13/19 21:00 09/17/19 09:42 Bactrim Ds 800/160 Tab* PO 1 tab BID LINA Administration Vital Signs: Vital Signs Temp Pulse Resp BP Pulse Ox 98.1 F 71 20 112/57 94 09/17/19 16:07 09/17/19 16:07 09/17/19 16:07 09/17/19 16:07 09/17/19 19:05 Exam: GENERAL: No apparent distress LUNGS: Clear bilaterally HEART: reg rhythm ABDOMEN: SOft, +BS EXTREMITIES: Left foot in boot with bandages, right thigh swollen NEUROLOGIC: sensation intact. Some leg weakness bilaterally, R>L, may be from polio or pain or both Assessment/Plan: 1. Right Distal femur periprosthetic fracture: TTWB RLE. IROM locked in extension. PT/OT 2. 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 3. Post-polio: supportive care. PT/OT 4. CAD: ASA/Zebeta/Crestor 5. Asthma: Singulair/Dulera 6. DVT Prophylaxis: Eliquis 7. Advance Directives: Full code. is surrogate decision maker 09/17/19 19:37
[2019-09-17] MEDS: Senna TAB 8.6 mg* TAB PO SCH (20:50)
[2019-09-17] MEDS: CMCS:Rosuvastatin (NF) 20 MG TAB PO SCH (20:51)
[2019-09-17] MEDS: Ezetimibe TAB* 10 MG PO SCH (20:51)
[2019-09-17] MEDS: Artificial Tears* 15 ML BTL BOTH EYES PRN (20:52)
[2019-09-18] MEDS: Acetaminophen TAB* 325 MG PO SCH ×5 (02:09→19:01)
[2019-09-18] MEDS: oxyCODONE TAB* 5 MG TAB PO PRN ×2 (06:44→12:41)
[2019-09-18] MEDS: ALAWAY TOPICAL SCH ×2 (08:06→21:04)
[2019-09-18] MEDS: Apixaban* 2.5 MG TAB PO SCH ×2 (08:06→21:01)
[2019-09-18] MEDS: Aspirin EC TAB* 81 MG TAB.EC PO SCH (08:06)
[2019-09-18] MEDS: Cholecalciferol TAB* 1000 UNITS PO SCH ×2 (08:07→21:03)
[2019-09-18] MEDS: Bisoprolol TAB* 5 MG PO SCH (08:07)
[2019-09-18] MEDS: Docusate CAP* 100 MG PO SCH ×2 (08:07→21:03)
[2019-09-18] MEDS: Hydrochlorothiazide TAB* 25 MG PO SCH (08:08)
[2019-09-18] MEDS: Pantoprazole TAB * 40 MG TAB PO SCH (08:10)
[2019-09-18] MEDS: Multivitamins/Minerals TAB PO SCH (08:10)
[2019-09-18] MEDS: Montelukast Sodium TAB* 10 MG PO SCH (08:10)
[2019-09-18] MEDS: Sertraline* 25 MG TAB PO SCH (08:10)
[2019-09-18] MEDS: Sulfamethox/Trimethoprim DS 800/160* TAB PO SCH ×2 (08:10→21:01)
[2019-09-18] MEDS: Mometasone/Formoter 200/5 MDI INH SCH ×2 (08:10→21:05)
[2019-09-18] MEDS: Artificial Tears* 15 ML BTL BOTH EYES PRN ×2 (08:11→21:04)
[2019-09-18] MEDS: Lactobacillus Acidophilus* 1 TAB PO SCH (12:42)
[2019-09-18] MEDS: Al Hydrox/Mg Hydrox/Simet LIQ* 30 ML UDC PO PRN (15:49)
--- NOTE | 2019-09-18 18:47 | PN ---
Progress Note Date of Service: 09/18/19 Note: EUNICE MIXON was visited. Therapy notes read and reviewed. She has no complaints. She seems to be doing well and feels a lot less pain in her new brace and boot. Current Medications: Active Medications Generic Name Dose Route Start Last Admin Trade Name Freq PRN Reason Stop Dose Admin Acetaminophen 975 mg 09/13/19 13:00 09/18/19 12:43 Tylenol Tab* PO Not Given Q6H LINA Al Hydrox/Mg Hydrox/Simethicone 30 ml 09/13/19 11:51 09/18/19 15:49 Maalox Plus* PO 30 ml Q6H PRN Administration INDIGESTION Albuterol 2 puff 09/13/19 12:11 Ventolin Hfa Inhaler* INH Q4H PRN SOB/WHEEZING Apixaban 2.5 mg 09/13/19 21:00 09/18/19 08:06 Eliquis* PO 2.5 mg BID LINA Administration Aspirin 81 mg 09/14/19 09:00 09/18/19 08:06 Aspirin Ec Tab* PO 81 mg DAILY LINA Administration Bisacodyl 10 mg 09/13/19 12:17 Dulcolax Supp* CT DAILY PRN CONSTIPATION Bisoprolol Fumarate 10 mg 09/14/19 09:00 09/18/19 08:07 Zebeta Tab* PO 10 mg DAILY LINA Administration Cholecalciferol 1,000 units 09/13/19 21:00 09/18/19 08:07 Vitamin D Tab* PO 1,000 units BID LINA Administration Docusate Sodium 100 mg 09/13/19 21:00 09/18/19 08:07 Colace Cap* PO Not Given BID LINA Ezetimibe 10 mg 09/13/19 21:00 09/17/19 20:51 Zetia Tab* PO 10 mg BEDTIME LINA Administration Hydrochlorothiazide 6.25 mg 09/14/19 09:00 09/18/19 08:08 Hydrodiuril Tab* PO 6.25 mg DAILY LINA Administration Lactobacillus Rhamnosus 1 tab 09/18/19 09:00 09/18/19 12:42 Lactobacillus Acidophilus* PO 1 tab DAILY LINA Administration Methocarbamol 750 mg 09/13/19 12:15 09/15/19 13:13 Robaxin Tab* PO 750 mg Q6H PRN Administration SPASMS - MUSCLE Mometasone Furoate/Formoterol Fumar 2 puff 09/13/19 21:00 09/18/19 08:10 Dulera 200/5 Mdi* INH 2 puff BID LINA Administration Montelukast Sodium 10 mg 09/14/19 09:00 09/18/19 08:10 Singulair Tab* PO 10 mg DAILY LINA Administration Multivitamins/Minerals 1 tab 09/14/19 09:00 09/18/19 08:10 Theragran/Minerals Tab* PO 1 tab DAILY LINA Administration Pto:Non Formulary 1 drop 09/13/19 21:00 09/18/19 08:06 Med* ([place] 1 Drop) TOPICAL 1 drop Q12H LINA Administration Ondansetron HCl 4 mg 09/13/19 12:11 09/17/19 08:06 Zofran Odt Tab* SL 4 mg Q6H PRN Administration NAUSEA/VOMITING Oxycodone HCl 5 mg 09/13/19 12:14 09/18/19 12:41 Roxycodone Tab* PO 5 mg Q4H PRN Administration PAIN - SEVERE Pantoprazole Sodium 40 mg 09/14/19 09:00 09/18/19 08:10 Protonix Tab* PO 40 mg DAILY LINA Administration Polyethylene Glycol/Electrolytes 17 gm 09/13/19 12:08 Miralax (17 Gm Dose Angel) PO DAILY PRN CONSTIPATION Polyvinyl Alcohol 1 drop 09/13/19 12:10 09/18/19 08:11 Polyvinyl Alcohol 1.4% Opth* BOTH EYES 1 drop Q2H PRN Administration DRY EYE Rosuvastatin Calcium 40 mg 09/13/19 21:00 09/17/19 20:51 Crestor (Nf) PO 40 mg BEDTIME LINA Administration Senna 2 tab 09/13/19 21:00 09/17/19 20:50 Senokot 8.6 Mg Tab* PO Not Given BEDTIME LINA Sertraline HCl 25 mg 09/14/19 09:00 09/18/19 08:10 Zoloft* PO 25 mg DAILY LINA Administration Tramadol HCl 50 mg 09/13/19 12:10 Ultram* PO Q6H PRN PAIN - MODERATE Trimethoprim/Sulfamethoxazole 1 tab 09/13/19 21:00 09/18/19 08:10 Bactrim Ds 800/160 Tab* PO 1 tab BID LINA Administration Vital Signs: Vital Signs Temp Pulse Resp BP Pulse Ox 98.3 F 73 18 121/59 96 09/18/19 16:00 09/18/19 16:00 09/18/19 16:20 09/18/19 16:00 09/18/19 16:20 Exam: GENERAL: No apparent distress LUNGS: Clear bilaterally HEART: reg rhythm ABDOMEN: SOft, +BS EXTREMITIES: Left foot in boot with bandages, right thigh swollen NEUROLOGIC: sensation intact. Some leg weakness bilaterally, R>L, may be from polio or pain or both. Left foot in boot, right knee in IROM Assessment/Plan: 1. Right Distal femur periprosthetic fracture: TTWB RLE. IROM locked in extension. PT/OT 2. 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 3. Post-polio: supportive care. PT/OT 4. CAD: ASA/Zebeta/Crestor 5. Asthma: Singulair/Dulera 6. DVT Prophylaxis: Eliquis 7. Advance Directives: Full code. is surrogate decision maker 09/18/19 18:48
[2019-09-18] MEDS: Ezetimibe TAB* 10 MG PO SCH (21:00)
[2019-09-18] MEDS: CMCS:Rosuvastatin (NF) 20 MG TAB PO SCH (21:01)
[2019-09-18] MEDS: Senna TAB 8.6 mg* TAB PO SCH (21:02)
[2019-09-19] MEDS: Acetaminophen TAB* 325 MG PO SCH ×4 (00:10→20:19)
[2019-09-19] MEDS: oxyCODONE TAB* 5 MG TAB PO PRN ×2 (05:13→22:36)
[2019-09-19] MEDS: ALAWAY TOPICAL SCH ×2 (08:34→20:17)
[2019-09-19] MEDS: Artificial Tears* 15 ML BTL BOTH EYES PRN ×2 (08:34→20:25)
[2019-09-19] MEDS: Sulfamethox/Trimethoprim DS 800/160* TAB PO SCH ×2 (08:35→20:19)
[2019-09-19] MEDS: Lactobacillus Acidophilus* 1 TAB PO SCH (08:35)
[2019-09-19] MEDS: Aspirin EC TAB* 81 MG TAB.EC PO SCH (08:35)
[2019-09-19] MEDS: Sertraline* 25 MG TAB PO SCH (08:35)
[2019-09-19] MEDS: Multivitamins/Minerals TAB PO SCH (08:35)
[2019-09-19] MEDS: Hydrochlorothiazide TAB* 25 MG PO SCH (08:35)
[2019-09-19] MEDS: Pantoprazole TAB * 40 MG TAB PO SCH (08:35)
[2019-09-19] MEDS: Cholecalciferol TAB* 1000 UNITS PO SCH ×2 (08:35→20:19)
[2019-09-19] MEDS: Bisoprolol TAB* 5 MG PO SCH (08:35)
[2019-09-19] MEDS: Docusate CAP* 100 MG PO SCH ×2 (08:35→20:19)
[2019-09-19] MEDS: Apixaban* 2.5 MG TAB PO SCH ×2 (08:35→20:19)
[2019-09-19] MEDS: Montelukast Sodium TAB* 10 MG PO SCH (08:36)
[2019-09-19] MEDS: Mometasone/Formoter 200/5 MDI INH SCH ×2 (08:39→20:18)
--- NOTE | 2019-09-19 10:43 | PN ---
Progress Note Date of Service: 09/19/19 Note: EUNICE MIXON was visited. Seen in bed. Visitor in attendance. Concerned about positioning of [place] M Jackson[place], readjusted. Was somewhat achy last night , reassured. Current Medications: Active Medications Generic Name Dose Route Start Last Admin Trade Name Freq PRN Reason Stop Dose Admin Acetaminophen 975 mg 09/13/19 13:00 09/19/19 08:40 Tylenol Tab* PO 975 mg Q6H LINA Administration Al Hydrox/Mg Hydrox/Simethicone 30 ml 09/13/19 11:51 09/18/19 15:49 Maalox Plus* PO 30 ml Q6H PRN Administration INDIGESTION Albuterol 2 puff 09/13/19 12:11 Ventolin Hfa Inhaler* INH Q4H PRN SOB/WHEEZING Apixaban 2.5 mg 09/13/19 21:00 09/19/19 08:35 Eliquis* PO 2.5 mg BID LINA Administration Aspirin 81 mg 09/14/19 09:00 09/19/19 08:35 Aspirin Ec Tab* PO 81 mg DAILY LINA Administration Bisacodyl 10 mg 09/13/19 12:17 Dulcolax Supp* NM DAILY PRN CONSTIPATION Bisoprolol Fumarate 10 mg 09/14/19 09:00 09/19/19 08:35 Zebeta Tab* PO 10 mg DAILY LINA Administration Cholecalciferol 1,000 units 09/13/19 21:00 09/19/19 08:35 Vitamin D Tab* PO 1,000 units BID LINA Administration Docusate Sodium 100 mg 09/13/19 21:00 09/19/19 08:35 Colace Cap* PO 100 mg BID LINA Administration Ezetimibe 10 mg 09/13/19 21:00 09/18/19 21:00 Zetia Tab* PO 10 mg BEDTIME LINA Administration Hydrochlorothiazide 6.25 mg 09/14/19 09:00 09/19/19 08:35 Hydrodiuril Tab* PO 6.25 mg DAILY LINA Administration Lactobacillus Rhamnosus 1 tab 09/18/19 09:00 09/19/19 08:35 Lactobacillus Acidophilus* PO 1 tab DAILY LINA Administration Methocarbamol 750 mg 09/13/19 12:15 09/15/19 13:13 Robaxin Tab* PO 750 mg Q6H PRN Administration SPASMS - MUSCLE Mometasone Furoate/Formoterol Fumar 2 puff 09/13/19 21:00 09/19/19 08:39 Dulera 200/5 Mdi* INH 2 puff BID LINA Administration Montelukast Sodium 10 mg 09/14/19 09:00 09/19/19 08:36 Singulair Tab* PO 10 mg DAILY LINA Administration Multivitamins/Minerals 1 tab 09/14/19 09:00 09/19/19 08:35 Theragran/Minerals Tab* PO 1 tab DAILY LINA Administration Pto:Non Formulary 1 drop 09/13/19 21:00 09/19/19 08:34 Med* ([place] 1 Drop) TOPICAL 1 drop Q12H LINA Administration Ondansetron HCl 4 mg 09/13/19 12:11 09/17/19 08:06 Zofran Odt Tab* SL 4 mg Q6H PRN Administration NAUSEA/VOMITING Oxycodone HCl 5 mg 09/13/19 12:14 09/19/19 05:13 Roxycodone Tab* PO 5 mg Q4H PRN Administration PAIN - SEVERE Pantoprazole Sodium 40 mg 09/14/19 09:00 09/19/19 08:35 Protonix Tab* PO 40 mg DAILY LINA Administration Polyethylene Glycol/Electrolytes 17 gm 09/13/19 12:08 Miralax (17 Gm Dose Angel) PO DAILY PRN CONSTIPATION Polyvinyl Alcohol 1 drop 09/13/19 12:10 09/19/19 08:34 Polyvinyl Alcohol 1.4% Opth* BOTH EYES 1 drop Q2H PRN Administration DRY EYE Rosuvastatin Calcium 40 mg 09/13/19 21:00 09/18/19 21:01 Crestor (Nf) PO 40 mg BEDTIME LINA Administration Senna 2 tab 09/13/19 21:00 09/18/19 21:02 Senokot 8.6 Mg Tab* PO Not Given BEDTIME LINA Sertraline HCl 25 mg 09/14/19 09:00 09/19/19 08:35 Zoloft* PO 25 mg DAILY LINA Administration Tramadol HCl 50 mg 09/13/19 12:10 Ultram* PO Q6H PRN PAIN - MODERATE Trimethoprim/Sulfamethoxazole 1 tab 09/13/19 21:00 09/19/19 08:35 Bactrim Ds 800/160 Tab* PO 1 tab BID LINA Administration Vital Signs: Vital Signs Temp Pulse Resp BP Pulse Ox 98.6 F 69 18 125/63 98 09/19/19 05:20 09/19/19 05:20 09/19/19 07:44 09/19/19 05:20 09/19/19 08:00 Exam: HEENT: No gross facial asymmetries. Lungs: CTA. Heart: RRR. Abd: Soft, NT. Ext: +1 edema LLE, +2 edema RLE. Jamar wraps in place, R Alejandro adjusted. Neuro: Alert and interactive. Speech and language intact. Strength 5/5 throughout, able to do SLR B. Assessment/Plan: 1. Right Distal femur periprosthetic fracture: TTWB RLE. IROM locked in extension. PT/OT 2. 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 3. Post-polio: supportive care. PT/OT 4. CAD: ASA/Zebeta/Crestor 5. Asthma: Singulair/Dulera 6. DVT Prophylaxis: Eliquis 7. Advance Directives: Full code. is surrogate decision maker
[2019-09-19] MEDS: Senna TAB 8.6 mg* TAB PO SCH (20:18)
[2019-09-19] MEDS: CMCS:Rosuvastatin (NF) 20 MG TAB PO SCH (20:18)
[2019-09-19] MEDS: Ezetimibe TAB* 10 MG PO SCH (20:19)
[2019-09-20] MEDS: Acetaminophen TAB* 325 MG PO SCH ×4 (02:35→19:46)
[2019-09-20] MEDS: Cholecalciferol TAB* 1000 UNITS PO SCH ×2 (08:26→19:45)
[2019-09-20] MEDS: Docusate CAP* 100 MG PO SCH ×2 (08:26→19:45)
[2019-09-20] MEDS: Lactobacillus Acidophilus* 1 TAB PO SCH (08:26)
[2019-09-20] MEDS: Pantoprazole TAB * 40 MG TAB PO SCH (08:26)
[2019-09-20] MEDS: Sertraline* 25 MG TAB PO SCH (08:26)
[2019-09-20] MEDS: Apixaban* 2.5 MG TAB PO SCH ×2 (08:26→19:46)
[2019-09-20] MEDS: Aspirin EC TAB* 81 MG TAB.EC PO SCH (08:26)
[2019-09-20] MEDS: Bisoprolol TAB* 5 MG PO SCH (08:26)
[2019-09-20] MEDS: Multivitamins/Minerals TAB PO SCH (08:27)
[2019-09-20] MEDS: Sulfamethox/Trimethoprim DS 800/160* TAB PO SCH ×2 (08:27→19:45)
[2019-09-20] MEDS: Hydrochlorothiazide TAB* 25 MG PO SCH (08:27)
[2019-09-20] MEDS: Montelukast Sodium TAB* 10 MG PO SCH (08:27)
[2019-09-20] MEDS: Mometasone/Formoter 200/5 MDI INH SCH ×2 (08:30→19:44)
[2019-09-20] MEDS: Artificial Tears* 15 ML BTL BOTH EYES PRN ×2 (08:30→19:47)
[2019-09-20] MEDS: ALAWAY TOPICAL SCH ×2 (08:30→19:43)
--- NOTE | 2019-09-20 12:53 | PN ---
Progress Note Date of Service: 09/20/19 Note: EUNICE MIXON was visited. Friend in attendance. Still concerned about [place] slipping down, reminded that frequent repositioning may be required. Current Medications: Active Medications Generic Name Dose Route Start Last Admin Trade Name Freq PRN Reason Stop Dose Admin Acetaminophen 975 mg 09/13/19 13:00 09/20/19 06:36 Tylenol Tab* PO 975 mg Q6H LINA Administration Al Hydrox/Mg Hydrox/Simethicone 30 ml 09/13/19 11:51 09/18/19 15:49 Maalox Plus* PO 30 ml Q6H PRN Administration INDIGESTION Albuterol 2 puff 09/13/19 12:11 Ventolin Hfa Inhaler* INH Q4H PRN SOB/WHEEZING Apixaban 2.5 mg 09/13/19 21:00 09/20/19 08:26 Eliquis* PO 2.5 mg BID LINA Administration Aspirin 81 mg 09/14/19 09:00 09/20/19 08:26 Aspirin Ec Tab* PO 81 mg DAILY LINA Administration Bisacodyl 10 mg 09/13/19 12:17 Dulcolax Supp* [place] DAILY PRN CONSTIPATION Bisoprolol Fumarate 10 mg 09/14/19 09:00 09/20/19 08:26 Zebeta Tab* PO 10 mg DAILY LINA Administration Cholecalciferol 1,000 units 09/13/19 21:00 09/20/19 08:26 Vitamin D Tab* PO 1,000 units BID LINA Administration Docusate Sodium 100 mg 09/13/19 21:00 09/20/19 08:26 Colace Cap* PO 100 mg BID LINA Administration Ezetimibe 10 mg 09/13/19 21:00 09/19/19 20:19 Zetia Tab* PO 10 mg BEDTIME LINA Administration Hydrochlorothiazide 6.25 mg 09/14/19 09:00 09/20/19 08:27 Hydrodiuril Tab* PO 6.25 mg DAILY LINA Administration Lactobacillus Rhamnosus 1 tab 09/18/19 09:00 09/20/19 08:26 Lactobacillus Acidophilus* PO 1 tab DAILY LINA Administration Methocarbamol 750 mg 09/13/19 12:15 09/15/19 13:13 Robaxin Tab* PO 750 mg Q6H PRN Administration SPASMS - MUSCLE Mometasone Furoate/Formoterol Fumar 2 puff 09/13/19 21:00 09/20/19 08:30 Dulera 200/5 Mdi* INH 2 puff BID LINA Administration Montelukast Sodium 10 mg 09/14/19 09:00 09/20/19 08:27 Singulair Tab* PO 10 mg DAILY LINA Administration Multivitamins/Minerals 1 tab 09/14/19 09:00 09/20/19 08:27 Theragran/Minerals Tab* PO 1 tab DAILY LINA Administration Pto:Non Formulary 1 drop 09/13/19 21:00 09/20/19 08:30 Med* ([place] 1 Drop) TOPICAL 1 drop Q12H LIAN Administration Ondansetron HCl 4 mg 09/13/19 12:11 09/17/19 08:06 Zofran Odt Tab* SL 4 mg Q6H PRN Administration NAUSEA/VOMITING Pantoprazole Sodium 40 mg 09/14/19 09:00 09/20/19 08:26 Protonix Tab* PO 40 mg DAILY LINA Administration Polyethylene Glycol/Electrolytes 17 gm 09/13/19 12:08 Miralax (17 Gm Dose Angel) PO DAILY PRN CONSTIPATION Polyvinyl Alcohol 1 drop 09/13/19 12:10 09/20/19 08:30 Polyvinyl Alcohol 1.4% Opth* BOTH EYES 1 drop Q2H PRN Administration DRY EYE Rosuvastatin Calcium 40 mg 09/20/19 21:00 Crestor (Nf) PO BEDTIME LINA Senna 2 tab 09/13/19 21:00 09/19/19 20:18 Senokot 8.6 Mg Tab* PO 2 tab BEDTIME LINA Administration Sertraline HCl 25 mg 09/14/19 09:00 09/20/19 08:26 Zoloft* PO 25 mg DAILY LINA Administration Trimethoprim/Sulfamethoxazole 1 tab 09/13/19 21:00 09/20/19 08:27 Bactrim Ds 800/160 Tab* PO 1 tab BID LINA Administration Vital Signs: Vital Signs Temp Pulse Resp BP Pulse Ox 97.9 F 72 18 110/60 97 09/20/19 04:50 09/20/19 04:50 09/20/19 08:00 09/20/19 04:50 09/20/19 08:00 Exam: HEENT: No gross facial asymmetries. Lungs: Cta. Heart: RRR. Abd: Active bowels sounds. Ext: Right Alejandro, L walking boot in place. Neuro: Speech and language intact. Strength 5/5. Assessment/Plan: 1. Right Distal femur periprosthetic fracture: TTWB RLE. IROM locked in extension. PT/OT 2. 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 3. Post-polio: supportive care. PT/OT 4. CAD: ASA/Zebeta/Crestor 5. Asthma: Singulair/Dulera 6. DVT Prophylaxis: Eliquis 7. Advance Directives: Full code. is surrogate decision maker
[2019-09-20] MEDS: oxyCODONE TAB* 5 MG TAB PO PRN (13:22)
[2019-09-20] MEDS: Rosuvastatin (NF) 10 MG TAB PO SCH (19:43)
[2019-09-20] MEDS: Senna TAB 8.6 mg* TAB PO SCH (19:44)
[2019-09-20] MEDS: Ezetimibe TAB* 10 MG PO SCH (19:45)
[2019-09-21] MEDS: Acetaminophen TAB* 325 MG PO SCH ×4 (01:18→19:54)
[2019-09-21] MEDS: oxyCODONE TAB* 5 MG TAB PO PRN ×2 (02:48→09:20)
[2019-09-21] MEDS: Cholecalciferol TAB* 1000 UNITS PO SCH ×2 (09:12→21:25)
[2019-09-21] MEDS: Docusate CAP* 100 MG PO SCH ×2 (09:12→21:26)
[2019-09-21] MEDS: Aspirin EC TAB* 81 MG TAB.EC PO SCH (09:12)
[2019-09-21] MEDS: Montelukast Sodium TAB* 10 MG PO SCH (09:13)
[2019-09-21] MEDS: Hydrochlorothiazide TAB* 25 MG PO SCH (09:13)
[2019-09-21] MEDS: Pantoprazole TAB * 40 MG TAB PO SCH (09:13)
[2019-09-21] MEDS: Multivitamins/Minerals TAB PO SCH (09:13)
[2019-09-21] MEDS: Apixaban* 2.5 MG TAB PO SCH ×2 (09:13→21:25)
[2019-09-21] MEDS: Lactobacillus Acidophilus* 1 TAB PO SCH (09:14)
[2019-09-21] MEDS: Mometasone/Formoter 200/5 MDI INH SCH ×2 (09:15→21:27)
[2019-09-21] MEDS: Sertraline* 25 MG TAB PO SCH (09:16)
[2019-09-21] MEDS: Sulfamethox/Trimethoprim DS 800/160* TAB PO SCH ×2 (09:16→21:26)
[2019-09-21] MEDS: ALAWAY TOPICAL SCH ×2 (09:17→21:26)
[2019-09-21] MEDS: Bisoprolol TAB* 5 MG PO SCH (09:17)
[2019-09-21] MEDS: Artificial Tears* 15 ML BTL BOTH EYES PRN ×2 (09:19→21:26)
--- NOTE | 2019-09-21 19:13 | PN ---
Progress Note Date of Service: 09/21/19 Note: EUNICE MIXON was visited. Therapy notes read and reviewed. She feels good about where she is but notes she had pain from the IROM brace that caused her not to sleep Current Medications: Active Medications Generic Name Dose Route Start Last Admin Trade Name Freq PRN Reason Stop Dose Admin Acetaminophen 975 mg 09/13/19 13:00 09/21/19 12:27 Tylenol Tab* PO 975 mg Q6H LINA Administration Al Hydrox/Mg Hydrox/Simethicone 30 ml 09/13/19 11:51 09/18/19 15:49 Maalox Plus* PO 30 ml Q6H PRN Administration INDIGESTION Albuterol 2 puff 09/13/19 12:11 Ventolin Hfa Inhaler* INH Q4H PRN SOB/WHEEZING Apixaban 2.5 mg 09/13/19 21:00 09/21/19 09:13 Eliquis* PO 2.5 mg BID LINA Administration Aspirin 81 mg 09/14/19 09:00 09/21/19 09:12 Aspirin Ec Tab* PO 81 mg DAILY LINA Administration Bisacodyl 10 mg 09/13/19 12:17 Dulcolax Supp* ND DAILY PRN CONSTIPATION Bisoprolol Fumarate 10 mg 09/14/19 09:00 09/21/19 09:17 Zebeta Tab* PO 10 mg DAILY LINA Administration Cholecalciferol 1,000 units 09/13/19 21:00 09/21/19 09:12 Vitamin D Tab* PO 1,000 units BID LINA Administration Docusate Sodium 100 mg 09/13/19 21:00 09/21/19 09:12 Colace Cap* PO 100 mg BID LINA Administration Ezetimibe 10 mg 09/13/19 21:00 09/20/19 19:45 Zetia Tab* PO 10 mg BEDTIME LINA Administration Hydrochlorothiazide 6.25 mg 09/14/19 09:00 09/21/19 09:13 Hydrodiuril Tab* PO 6.25 mg DAILY LINA Administration Lactobacillus Rhamnosus 1 tab 09/18/19 09:00 09/21/19 09:14 Lactobacillus Acidophilus* PO 1 tab DAILY LINA Administration Methocarbamol 750 mg 09/13/19 12:15 09/15/19 13:13 Robaxin Tab* PO 750 mg Q6H PRN Administration SPASMS - MUSCLE Mometasone Furoate/Formoterol Fumar 2 puff 09/13/19 21:00 09/21/19 09:15 Dulera 200/5 Mdi* INH 2 puff BID LINA Administration Montelukast Sodium 10 mg 09/14/19 09:00 09/21/19 09:13 Singulair Tab* PO 10 mg DAILY LINA Administration Multivitamins/Minerals 1 tab 09/14/19 09:00 09/21/19 09:13 Theragran/Minerals Tab* PO 1 tab DAILY LINA Administration Pto:Non Formulary 1 drop 09/13/19 21:00 09/21/19 09:17 Med* ([place] 1 Drop) TOPICAL 1 drop Q12H LINA Administration Ondansetron HCl 4 mg 09/13/19 12:11 09/17/19 08:06 Zofran Odt Tab* SL 4 mg Q6H PRN Administration NAUSEA/VOMITING Oxycodone HCl 5 mg 09/20/19 13:12 09/21/19 09:20 Roxycodone Tab* PO 5 mg Q4H PRN Administration PAIN - SEVERE Pantoprazole Sodium 40 mg 09/14/19 09:00 09/21/19 09:13 Protonix Tab* PO 40 mg DAILY LINA Administration Polyethylene Glycol/Electrolytes 17 gm 09/13/19 12:08 Miralax (17 Gm Dose Angel) PO DAILY PRN CONSTIPATION Polyvinyl Alcohol 1 drop 09/13/19 12:10 09/21/19 09:19 Polyvinyl Alcohol 1.4% Opth* BOTH EYES 1 drop Q2H PRN Administration DRY EYE Rosuvastatin Calcium 40 mg 09/20/19 21:00 09/20/19 19:43 Crestor (Nf) PO 40 mg BEDTIME LINA Administration Senna 2 tab 09/13/19 21:00 09/20/19 19:44 Senokot 8.6 Mg Tab* PO 2 tab BEDTIME LINA Administration Sertraline HCl 25 mg 09/14/19 09:00 09/21/19 09:16 Zoloft* PO 25 mg DAILY LINA Administration Trimethoprim/Sulfamethoxazole 1 tab 09/13/19 21:00 09/21/19 09:16 Bactrim Ds 800/160 Tab* PO 1 tab BID LINA Administration Vital Signs: Vital Signs Temp Pulse Resp BP Pulse Ox 97.9 F 72 18 113/53 96 02/17/20 15:54 09/21/19 15:54 09/21/19 15:54 09/21/19 15:54 09/21/19 15:54 Exam: GENERAL: No apparent distress LUNGS: Clear bilaterally HEART: reg rhythm ABDOMEN: SOft, +BS EXTREMITIES: Left foot in boot with bandages, right thigh swollen NEUROLOGIC: sensation intact. Some leg weakness bilaterally, R>L, may be from polio or pain or both. Left foot in boot, right knee in IROM Assessment/Plan: 1. Right Distal femur periprosthetic fracture: TTWB RLE. IROM locked in extension. PT/OT 2. 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 3. Post-polio: supportive care. PT/OT 4. CAD: ASA/Zebeta/Crestor 5. Asthma: Singulair/Dulera 6. DVT Prophylaxis: Eliquis 7. Advance Directives: Full code. is surrogate decision maker
[2019-09-21] MEDS: Ezetimibe TAB* 10 MG PO SCH (21:23)
[2019-09-21] MEDS: Rosuvastatin (NF) 10 MG TAB PO SCH (21:23)
[2019-09-21] MEDS: Senna TAB 8.6 mg* TAB PO SCH (21:25)
[2019-09-22] MEDS: Acetaminophen TAB* 325 MG PO SCH ×4 (01:10→19:19)
[2019-09-22] MEDS: oxyCODONE TAB* 5 MG TAB PO PRN ×2 (02:02→08:32)
[2019-09-22] MEDS: Artificial Tears* 15 ML BTL BOTH EYES PRN (08:11)
[2019-09-22] MEDS: ALAWAY TOPICAL SCH ×2 (08:11→21:06)
[2019-09-22] MEDS: Mometasone/Formoter 200/5 MDI INH SCH ×2 (08:12→21:09)
[2019-09-22] MEDS: Apixaban* 2.5 MG TAB PO SCH ×2 (08:13→21:07)
[2019-09-22] MEDS: Cholecalciferol TAB* 1000 UNITS PO SCH ×2 (08:14→21:07)
[2019-09-22] MEDS: Multivitamins/Minerals TAB PO SCH (08:14)
[2019-09-22] MEDS: Aspirin EC TAB* 81 MG TAB.EC PO SCH (08:14)
[2019-09-22] MEDS: Pantoprazole TAB * 40 MG TAB PO SCH (08:14)
[2019-09-22] MEDS: Sertraline* 25 MG TAB PO SCH (08:14)
[2019-09-22] MEDS: Montelukast Sodium TAB* 10 MG PO SCH (08:14)
[2019-09-22] MEDS: Docusate CAP* 100 MG PO SCH ×2 (08:14→21:08)
[2019-09-22] MEDS: Sulfamethox/Trimethoprim DS 800/160* TAB PO SCH ×2 (08:15→21:07)
[2019-09-22] MEDS: Hydrochlorothiazide TAB* 25 MG PO SCH (08:15)
[2019-09-22] MEDS: Bisoprolol TAB* 5 MG PO SCH (08:16)
[2019-09-22] MEDS: Lactobacillus Acidophilus* 1 TAB PO SCH (08:16)
--- NOTE | 2019-09-22 12:50 | PMRUTEAM ---
PMRU: Team Meeting Current Status: Physical Therapy: Current Status Current Rolling Status Supervision/Touching Current Supine <-> Sit Status Supervision/Touching Current Sit <-> Stand Status Supervision/Touching Current Bed <-> Chair Status Supervision/Touching Transfer/Bed Mobility Rolling Walker Recommended Devices Current Picking Up Object Not attempted Status Current Car Transfer Status Not attempted Current Ambulation Assistance Supervision/Touching Status Ambulation Conditions Two or More Turns,Uneven Surfaces Current Ambulation Distance 10' Manual Wheelchair Control/ Bilateral UE's Technique Current Wheelchair Propulsion Supervision/Touching Ability Status Current Stair Climbing Status Supervision/Touching Current Curb Assistance Status Not Applicable Objective Comments Pt manages bilateral brakes and leg rests with VCs for safety with WC mobility. Occupational Therapy: Current Status Current Upper Body Dressing Setup or Clean-up Assist Status Current Lower Body Dressing Supervision/Touching Status Current Footwear Status Partial/Moderate Current Bathing Status Supervision/Touching Current Grooming Status Setup or Clean-up Assist Current Toileting Status Supervision/Touching Current Toilet Transfer Status Supervision/Touching Current Eating Status Independent Nursing: Current Status Skin Deviations [Right Other posterior upper thigh] Skin Deviations [Right knee Other Dressing] Skin Deviations [Left Foot Other Pinning] Skin Deviations [Right Knee] Abrasion Skin Deviation Description [ optifoam off, healing and no issue Right posterior upper thigh] Skin Deviation Description [ immobilizer in place per order Right knee Dressing] Skin Deviation Description [ pin sites healing, pins out Left Foot Pinning] Skin Deviation Description [ optifoam in place Right Knee] Bladder Current Status 1 assist, pivot to commode Bowel Current Status 1 assist, pivot to commode Nutrition Current Status 100% of meals eaten Medication Current Status nurse gives meds Rec Therapy: Current Status Summary of Assessment and Recreation therapy assessment is complete and pt Clinical Impression is aware of services. Pt declines offers for formal activities, but appears to enjoy pet therapy and leisure visits with staff. Treatment Goals Pt will engage in leisure activities while on the unit, as tolerated Treatment Plan Provide recreation therapy services and encourage involvement. Social Work: Current Status Discharge Plan return home with home care svs and family support Potential for Family Training pt's is supportive Anticipated Discharge Home Destination Discharge With home care svs and family support Nutrition: Current Status Monitoring pt overall eating well, though variable amounts from meal to meal. Avg intake 80-85% of meals ( regular/vegetarian diet). Zofran last given 09/17; daily probiotic started 09/18. Had BMs 09/20, 09/21. Labs n/a since 09/14 (were all WNL, other than slo low H/H). Appears to be meeting nutrition goals as outlined below. Goals: Physical Therapy: Goals Goals to Be Accomplished in ( 10 Days) Goal: Rolling Assistance Independent Goal Supine <-> Sit Status Independent Goal Sit <-> Stand Status Independent Goal Bed <-> Chair Status Independent Transfer/Bed Mobility Rolling Walker Recommended Devices Goal: Picking Up Object Independent Goal: Car Transfer Status Setup or Clean-up Assist Goal: Ambulation Assistance Independent Ambulation Assistive Devices Rolling Walker Ambulation Distance (ft) 4 Goal: Wheelchair Propulsion Independent Ability Wheelchair Distance (ft) 2x150' Goal: Stairs Assistance Not Applicable Stairs Recommended Devices Two Rails Number of Stairs 4 Occupational Therapy: Goals Goals to be Completed in (Days 7-10 ) Goal Upper Body Dressing Independent Routine Goal Lower Body Dressing Independent Routine Goal Footwear Status Independent Goal Bathing Routine (OT) Setup or Clean-up Assist Goal Grooming Routine Independent Goal Toilet Hygiene and Independent Clothing Management Routine Goal Toilet Transfer Routine Independent Goal Functional Transfers for Independent ADL Goal Feeding Routine Independent Nutrition: Goals Intervention Goals 1. adequate intake to support hydration and lean body mass without significant wt change 2. maintain serum electrolytes WNL 3. regulation of bowel pattern; no c/o constipation (or diarrhea) Social Work: Goals Discharge Plan return home with home care svs and family support Potential for Family Training pt's is supportive Anticipated Discharge Home Destination Discharge With home care svs and family support Nursing: Goals Bladder Goal independent Bowel Goal independent Nutrition Goal Continue to eat 100% of meals Medication Goal independent Care Plan: Care Plan ADL's - Improve/Maintain Start: 09/13/19 18:20 Freq: DAILY@0700,1900 Status: Active Target: 09/14/19 Protocol: Activity Type Activity Date Activity User E-Sign Co-Sign Detail Recorded Client Recorded Date Recorded By Document 09/21/19 11:36 [id number] 09/21/19 11:36 [id number] 09/21/19 11:36 PMRU Outcome: ADL's/ADL Transfers Orders/Interventions Occupational Therapy Evaluation & Treatment Communication Tool in Patient Room Device Yes Address Deficits Secondary To: R periprosthetic fx s/p fall Patient to receive OT 5x/wk for 60-120 Therex min/day Self Care Management Group Therapy UE/LE ADL's with Assist Yes: independent, setup for bathing ADL Transfers with Assist Yes: independent Toileting: Transfers,Clothing Management Yes: ,Hygeine w/Assist independent Other Outcome/Goals Pt tolerates OT tx session well this date. She is using AE without verbal cues and requires supervision in standing. Pt planning on renting AE from [employer]. Progression Toward Outcome/Goals Progressing DVT Prophylaxis- Improve/Maintain Start: 09/13/19 18:20 Freq: DAILY@0700,1900 Status: Active Target: 09/25/19 Protocol: Activity Type Activity Date Activity User E-Sign Co-Sign Detail Recorded Client Recorded Date Recorded By Document 09/22/19 07:00 [id number] 09/22/19 11:38 [id number] 09/22/19 07:00 PMRU Outcome: DVT Prophylaxis Current DVT Outcome/Goals Remains Free of DVT Complies with DVT Prophylaxis /Treatment Demonstrates Knowledge of DVT Prevention/ Treatment Progression Toward Outcome/Goals Progressing Discharge Planning - Improve/Maintain Start: 09/13/19 18:20 Freq: DAILY@07,1900 Status: Active Target: 09/25/19 Protocol: Activity Type Activity Date Activity User E-Sign Co-Sign Detail Recorded Client Recorded Date Recorded By Document 09/22/19 07:00 [id number] 09/22/19 11:38 [id number] 09/22/19 07:00 PMRU Outcome: Discharge Planning Update Patient Family No Current Discharge Planning Outcome/Goals Demonstrates Understanding of Discharge Plan Progression Toward Outcome/Goals Progressing Education-Improve/Maintain Start: 09/13/19 18:20 Freq: DAILY@0700,1900 Status: Active Target: 09/25/19 Protocol: Activity Type Activity Date Activity User E-Sign Co-Sign Detail Recorded Client Recorded Date Recorded By Document 09/22/19 07:00 [id number] 09/22/19 11:38 [id number] 09/22/19 07:00 PMRU Outcome: Education Current Education Outcome/Goals Demonstrate/ Verbalize Understanding of Written Discharge Instructions Demonstrates Skills Encourage Questions Progression Toward Outcome/Goals Progressing /GI-Improve/Maintain Start: 09/13/19 18:20 Freq: DAILY@0700,1899 Status: Active Target: 09/25/19 Protocol: Activity Type Activity Date Activity User E-Sign Co-Sign Detail Recorded Client Recorded Date Recorded By Document 09/22/19 07:00 [id number] 09/22/19 11:38 [id number] 09/22/19 07:00 PMRU Outcome: Genitourinary/ Gastrointestinal Current Gastrointestinal Outcome/Goals Maintain/ Achieve Bowel Regularity in Accordance with Pt's Baseline Prevent Constipation Laxatives as Ordered Progression Toward Outcome/Goals Progressing Current Genitourinary Outcome/Goals Maintain/ Achieve Urinary Continence Remain Free of Hospital- Acquired UTI Progression Toward Outcome/Goals Progressing Infection-Improve/Maintain Start: 09/13/19 15:46 Freq: DAILY@699,1899 Status: Active Target: 09/25/19 Protocol: Activity Type Activity Date Activity User E-Sign Co-Sign Detail Recorded Client Recorded Date Recorded By Document 09/22/19 07:00 [id number] 09/22/19 11:38 [id number] 09/22/19 07:00 Outcome: Infection Current Infection Outcome/Goals Remain Free of Infection Understand Infection Prevention Strategies Progression Toward Outcome/Goals Progressing Mobility- Improve/Maintain Start: 09/13/19 18:20 Freq: DAILY@699,1899 Status: Active Target: 09/14/19 Protocol: Activity Type Activity Date Activity User E-Sign Co-Sign Detail Recorded Client Recorded Date Recorded By Document 09/21/19 14:54 [id number] 09/21/19 14:55 [id number] 09/21/19 14:54 PMRU Outcome: Mobility Physical Therapy Evaluation and Yes Treatment Activity OOB with Assistance Yes WBAT Yes: LLE with CAM boot NWB No TTWB Yes: RLE Device Yes Assistance Yes Patient to be seen 5x/wk for 60-120 min/ Therex day for: Mobility Training Gait Training W/C Mobility Balance Other Therapy Comment Discharge training/ discharge planning Current Mobility Outcome/Goals Maintain/ Achieve Baseline Mobility Status Improve Mobility Status Demonstrates Proper Use of Assistive Devices Free from Complications of Immobility Progression Toward Outcome/Goals Progressing Bed Mobility Yes: Independent Transfers Yes: Independent with RW Gait x ft Yes: 25' Independent with RW W/C Mobility x ft Yes: 150' Independent Up/Down Stairs Yes: 4 steps bumping, supervision With HEP Yes: Independent Mobility-Improve/Maintain Start: 09/13/19 15:46 Freq: DAILY@0700,1900 Status: Complete Target: 09/13/19 Protocol: Activity Type Activity Date Activity User E-Sign Co-Sign Detail Recorded Client Recorded Date Recorded By Document 09/13/19 19:00 [id number] 09/13/19 22:46 [id number] 09/13/19 19:00 Outcome: Mobility Current Mobility Outcome/Goals Maintain/ Achieve Baseline Mobility Status Improve Mobility Status Demonstrates Proper Use of Assistive Devices Progression Toward Outcome/Goals Goal Initiation Pain/Comfort- Improve/Maintain Start: 09/13/19 18:20 Freq: DAILY@699,1900 Status: Complete Target: 09/25/19 Protocol: Activity Type Activity Date Activity User E-Sign Co-Sign Detail Recorded Client Recorded Date Recorded By Document 09/20/19 07:00 [id number] 09/20/19 07:39 [id number] 09/20/19 07:00 PMRU Outcome: Pain/Comfort Current Pain/Comfort Outcome/Goals Demonstrates Knowledge and Use of Available Comfort Measures Achieves Acceptable Comfort/Pain Level as Determined by Patient/Condit Maintain Comfort Level Allowing Patient to Fully Participate in Rehab Progression Toward Outcome/Goals Goals Met Outcome/Goals Met Demonstrates Knowledge and Use of Available Comfort Measures Pain/Comfort-Improve/Maintain Start: 09/13/19 15:46 Freq: DAILY@699,0 Status: Complete Target: 09/25/19 Protocol: Activity Type Activity Date Activity User E-Sign Co-Sign Detail Recorded Client Recorded Date Recorded By Document 09/15/19 01:47 [id number] 09/15/19 01:47 [id number] 09/15/19 01:47 Outcome: Pain/Comfort Current Pain Outcome/Goals Demonstrates Knowledge and Use of Available Comfort Measures Achieves Acceptable Comfort/Pain Level as Determined by Patient/Condit Progression Toward Outcome/Goals Progressing Rec Therapy- Improve/Maintain Start: 09/14/19 16:32 Freq: DAILY@0700,1900 Status: Active Target: 09/25/19 Protocol: Activity Type Activity Date Activity User E-Sign Co-Sign Detail Recorded Client Recorded Date Recorded By Document 09/18/19 16:00 [id number] [email or web address] 09/18/19 16:00 [id number] 09/18/19 16:00 PMRU Outcome: Recreation Therapy Current Rec Ther Outcome/Goals Complete Rec Therapy Assessment Meet with Patient Regularly for Support Encourage Leisure Involvement Progression Toward Outcome/Goals Progressing Respiratory-Improve/Maintain Start: 09/13/19 15:46 Freq: DAILY@0700,1900 Status: Complete Target: 09/13/19 Protocol: Activity Type Activity Date Activity User E-Sign Co-Sign Detail Recorded Client Recorded Date Recorded By Document 09/13/19 15:48 [id number] [id number] 09/13/19 15:49 [id number] 09/13/19 15:48 Outcome: Respiratory Current Respiratory Outcome/Goals Maintain/ Improve O2 Sat per MD Order Progression Toward Outcome/Goals Goal Initiation Safety- Improve/Maintain Start: 09/13/19 14:11 Freq: DAILY@0700,1900 Status: Active Target: 09/25/19 Protocol: Activity Type Activity Date Activity User E-Sign Co-Sign Detail Recorded Client Recorded Date Recorded By Document 09/22/19 07:00 [id number] 09/22/19 11:38 [id number] 09/22/19 07:00 PMRU Outcome: Safety Current Safety Outcome/Goals Remain Free of Injury or Harm Cooperates with Safety Measures for Least Restrictive Environment Prevent Falls/ Injury Progression Toward Outcome/Goals Progressing Skin- Improve/Maintain Start: 09/13/19 18:20 Freq: DAILY@0700,1900 Status: Active Target: 09/25/19 Protocol: Activity Type Activity Date Activity User E-Sign Co-Sign Detail Recorded Client Recorded Date Recorded By Document 09/22/19 07:00 [id number] 09/22/19 11:38 [id number] 09/22/19 07:00 PMRU Outcome: Skin Skin Risk Level Mild Risk Skin Orders Dressing Change Multipodus Boot Other Skin Orders Comment immobilizer to RLE, boot to LLE Current Skin Outcome/Goals Maintain/ Improve Skin Integrity Free from Pressure Injury Progression Toward Outcome/Goals Progressing - Interdisciplinary Staff Present Venue Attendant/Social Work Staff Present: Tiana Lozada LMSW Nursing Staff Present: Jose Rodríguez, RN Nutrition Staff Present: Sienna Weiner OT Staff Present: Sandy Shea PT Staff Present: Fausto Owens Rec Therapy Staff Present: Palmira Roger C DEVELOPER Staff Present: Rodri Shawna Medicine Note: Length of Stay: 3 days Anticipated Discharge Destination: Home Tentative Discharge Date: 09/25/19 Discharged to: Home
--- NOTE | 2019-09-22 18:54 | PN ---
Progress Note Date of Service: 09/22/19 Note: EUNICE MIXON was visited. Therapy notes read and reviewed. She was discussed in interdisciplinary team rounds. She feels like she is doing better with moving around. Worried about getting to doctor's appointments, x-ray of foot on left, etc Current Medications: Active Medications Generic Name Dose Route Start Last Admin Trade Name Freq PRN Reason Stop Dose Admin Acetaminophen 975 mg 09/13/19 13:00 09/22/19 12:46 Tylenol Tab* PO 975 mg Q6H LINA Administration Al Hydrox/Mg Hydrox/Simethicone 30 ml 09/13/19 11:51 09/18/19 15:49 Maalox Plus* PO 30 ml Q6H PRN Administration INDIGESTION Albuterol 2 puff 09/13/19 12:11 Ventolin Hfa Inhaler* INH Q4H PRN SOB/WHEEZING Apixaban 2.5 mg 09/13/19 21:00 09/22/19 08:13 Eliquis* PO 2.5 mg BID LINA Administration Aspirin 81 mg 09/14/19 09:00 09/22/19 08:14 Aspirin Ec Tab* PO 81 mg DAILY LINA Administration Bisacodyl 10 mg 09/13/19 12:17 Dulcolax Supp* [place] DAILY PRN CONSTIPATION Bisoprolol Fumarate 10 mg 09/14/19 09:00 09/22/19 08:16 Zebeta Tab* PO 10 mg DAILY LINA Administration Cholecalciferol 1,000 units 09/13/19 21:00 09/22/19 08:14 Vitamin D Tab* PO 1,000 units BID LINA Administration Docusate Sodium 100 mg 09/13/19 21:00 09/22/19 08:14 Colace Cap* PO 100 mg BID LINA Administration Ezetimibe 10 mg 09/13/19 21:00 09/21/19 21:23 Zetia Tab* PO 10 mg BEDTIME LINA Administration Hydrochlorothiazide 6.25 mg 09/14/19 09:00 09/22/19 08:15 Hydrodiuril Tab* PO 6.25 mg DAILY LINA Administration Lactobacillus Rhamnosus 1 tab 09/18/19 09:00 09/22/19 08:16 Lactobacillus Acidophilus* PO 1 tab DAILY LINA Administration Methocarbamol 750 mg 09/13/19 12:15 09/15/19 13:13 Robaxin Tab* PO 750 mg Q6H PRN Administration SPASMS - MUSCLE Mometasone Furoate/Formoterol Fumar 2 puff 09/13/19 21:00 09/22/19 08:12 Dulera 200/5 Mdi* INH 2 puff BID LINA Administration Montelukast Sodium 10 mg 09/14/19 09:00 09/22/19 08:14 Singulair Tab* PO 10 mg DAILY LINA Administration Multivitamins/Minerals 1 tab 09/14/19 09:00 09/22/19 08:14 Theragran/Minerals Tab* PO 1 tab DAILY LINA Administration Pto:Non Formulary 1 drop 09/13/19 21:00 09/22/19 08:11 Med* ([place]away 1 Drop) TOPICAL 1 drop Q12H LINA Administration Ondansetron HCl 4 mg 09/13/19 12:11 09/17/19 08:06 Zofran Odt Tab* SL 4 mg Q6H PRN Administration NAUSEA/VOMITING Oxycodone HCl 5 mg 09/20/19 13:12 09/22/19 08:32 Roxycodone Tab* PO 5 mg Q4H PRN Administration PAIN - SEVERE Pantoprazole Sodium 40 mg 09/14/19 09:00 09/22/19 08:14 Protonix Tab* PO 40 mg DAILY LINA Administration Polyethylene Glycol/Electrolytes 17 gm 09/13/19 12:08 Miralax (17 Gm Dose Angel) PO DAILY PRN CONSTIPATION Polyvinyl Alcohol 1 drop 09/13/19 12:10 09/22/19 08:11 Polyvinyl Alcohol 1.4% Opth* BOTH EYES 1 drop Q2H PRN Administration DRY EYE Rosuvastatin Calcium 40 mg 09/20/19 21:00 09/21/19 21:23 Crestor (Nf) PO 40 mg BEDTIME LINA Administration Senna 2 tab 09/13/19 21:00 09/21/19 21:25 Senokot 8.6 Mg Tab* PO 2 tab BEDTIME LINA Administration Sertraline HCl 25 mg 09/14/19 09:00 09/22/19 08:14 Zoloft* PO 25 mg DAILY LINA Administration Trimethoprim/Sulfamethoxazole 1 tab 09/13/19 21:00 09/22/19 08:15 Bactrim Ds 800/160 Tab* PO 1 tab BID LINA Administration Vital Signs: Vital Signs Temp Pulse Resp BP Pulse Ox 97.6 F 72 20 115/61 100 09/22/19 06:31 09/22/19 17:21 09/22/19 17:21 09/22/19 17:21 09/22/19 17:21 Exam: GENERAL: No apparent distress LUNGS: Clear bilaterally HEART: reg rhythm ABDOMEN: SOft, +BS EXTREMITIES: Left foot in boot with bandages, right thigh swollen NEUROLOGIC: sensation intact. Some leg weakness bilaterally, R>L, may be from polio or pain or both. Left foot in boot, right knee in IROM Assessment/Plan: 1. Right Distal femur periprosthetic fracture: TTWB RLE. IROM locked in extension. PT/OT 2. 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 3. Post-polio: supportive care. PT/OT 4. CAD: ASA/Zebeta/Crestor 5. Asthma: Singulair/Dulera 6. DVT Prophylaxis: Eliquis 7. Advance Directives: Full code. is surrogate decision maker
[2019-09-22] MEDS: Ezetimibe TAB* 10 MG PO SCH (21:07)
[2019-09-22] MEDS: Rosuvastatin (NF) 10 MG TAB PO SCH (21:07)
[2019-09-22] MEDS: Senna TAB 8.6 mg* TAB PO SCH (21:08)
[2019-09-23] MEDS: Acetaminophen TAB* 325 MG PO SCH ×4 (00:42→20:06)
[2019-09-23] MEDS: oxyCODONE TAB* 5 MG TAB PO PRN ×3 (05:10→15:55)
[2019-09-23 05:49] LABS: ABS Basophils 0.1 10^3/ul (0-0.2); ABS Eosinophils 0.3 10^3/ul (0-0.6); ABS Lymphocytes 1.5 10^3/ul (1.0-4.8); ABS Monocytes 0.4 10^3/ul (0-0.8); ABS Neutrophils 3.6 10^3/ul (1.5-7.7); Eosinophil % 4.5 %; Hematocrit 31 % (35-47); Hemoglobin 10.4 g/dL (12.0-16.0); Lymphocyte % 25.4 %; Mean Corpuscular HGB Conc 34 g/dL (31-36); Mean Corpuscular Hemoglobin 29 pg (27-31); Mean Corpuscular Volume 87 fL (80-97); Mean Platelet Volume 6.9 fL (7.4-10.4); Platelet Count 288 10^3/uL (150-450); Red Blood Count 3.54 10^6 /uL (3.70-4.87); Red Cell Distribution Width 16 % (10-15); White Blood Count 5.9 10^3/uL (3.5-10.8)
[2019-09-23 06:02] LABS: Albumin 3.6 g/dL (3.2-5.2); Albumin/Globulin Ratio 1.3 (1-3); Calcium 8.6 mg/dL (8.6-10.3); Globulin 2.8 g/dL (2-4); Potassium 3.9 mmol/L (3.5-5.0); Total Bilirubin 0.4 mg/dL (0.2-1.0); Total Protein 6.4 g/dL (6.4-8.9)
[2019-09-23] MEDS: Apixaban* 2.5 MG TAB PO SCH ×2 (08:43→20:07)
[2019-09-23] MEDS: ALAWAY TOPICAL SCH ×2 (08:43→20:08)
[2019-09-23] MEDS: Bisoprolol TAB* 5 MG PO SCH (08:44)
[2019-09-23] MEDS: Aspirin EC TAB* 81 MG TAB.EC PO SCH (08:44)
[2019-09-23] MEDS: Docusate CAP* 100 MG PO SCH ×2 (08:44→20:07)
[2019-09-23] MEDS: Lactobacillus Acidophilus* 1 TAB PO SCH (08:44)
[2019-09-23] MEDS: Cholecalciferol TAB* 1000 UNITS PO SCH ×2 (08:44→20:07)
[2019-09-23] MEDS: Hydrochlorothiazide TAB* 25 MG PO SCH (08:44)
[2019-09-23] MEDS: Sulfamethox/Trimethoprim DS 800/160* TAB PO SCH ×2 (08:45→20:08)
[2019-09-23] MEDS: Pantoprazole TAB * 40 MG TAB PO SCH (08:45)
[2019-09-23] MEDS: Sertraline* 25 MG TAB PO SCH (08:45)
[2019-09-23] MEDS: Mometasone/Formoter 200/5 MDI INH SCH ×2 (08:45→20:07)
[2019-09-23] MEDS: Multivitamins/Minerals TAB PO SCH (08:45)
[2019-09-23] MEDS: Montelukast Sodium TAB* 10 MG PO SCH (08:45)
[2019-09-23] MEDS: Ondansetron ODT TAB* 4 MG SL PRN (11:55)
[2019-09-23] MEDS: Al Hydrox/Mg Hydrox/Simet LIQ* 30 ML UDC PO PRN (15:34)
[2019-09-23] MEDS: Methocarbamol TAB* 500 MG PO PRN (15:54)
--- NOTE | 2019-09-23 19:50 | PN ---
Progress Note Date of Service: 09/23/19 Note: EUNICE MIXON was visited. Therapy notes read and reviewed. She has no complaints today and is getting ready to go home Current Medications: Active Medications Generic Name Dose Route Start Last Admin Trade Name Freq PRN Reason Stop Dose Admin Acetaminophen 975 mg 09/13/19 13:00 09/23/19 13:55 Tylenol Tab* PO 975 mg Q6H LINA Administration Al Hydrox/Mg Hydrox/Simethicone 30 ml 09/13/19 11:51 09/23/19 15:34 Maalox Plus* PO 30 ml Q6H PRN Administration INDIGESTION Albuterol 2 puff 09/13/19 12:11 Ventolin Hfa Inhaler* INH Q4H PRN SOB/WHEEZING Apixaban 2.5 mg 09/13/19 21:00 09/23/19 08:43 Eliquis* PO 2.5 mg BID LINA Administration Aspirin 81 mg 09/14/19 09:00 09/23/19 08:44 Aspirin Ec Tab* PO 81 mg DAILY LINA Administration Bisacodyl 10 mg 09/13/19 12:17 Dulcolax Supp* [place] DAILY PRN CONSTIPATION Bisoprolol Fumarate 10 mg 09/14/19 09:00 09/23/19 08:44 Zebeta Tab* PO 10 mg DAILY LINA Administration Cholecalciferol 1,000 units 09/13/19 21:00 09/23/19 08:44 Vitamin D Tab* PO 1,000 units BID LINA Administration Docusate Sodium 100 mg 09/13/19 21:00 09/23/19 08:44 Colace Cap* PO 100 mg BID LINA Administration Ezetimibe 10 mg 09/13/19 21:00 09/22/19 21:07 Zetia Tab* PO 10 mg BEDTIME LINA Administration Hydrochlorothiazide 6.25 mg 09/14/19 09:00 09/23/19 08:44 Hydrodiuril Tab* PO 6.25 mg DAILY LINA Administration Lactobacillus Rhamnosus 1 tab 09/18/19 09:00 09/23/19 08:44 Lactobacillus Acidophilus* PO 1 tab DAILY LINA Administration Methocarbamol 750 mg 09/13/19 12:15 09/23/19 15:54 Robaxin Tab* PO 750 mg Q6H PRN Administration SPASMS - MUSCLE Mometasone Furoate/Formoterol Fumar 2 puff 09/13/19 21:00 09/23/19 08:45 Dulera 200/5 Mdi* INH 2 puff BID LINA Administration Montelukast Sodium 10 mg 09/14/19 09:00 09/23/19 08:45 Singulair Tab* PO 10 mg DAILY LINA Administration Multivitamins/Minerals 1 tab 09/14/19 09:00 09/23/19 08:45 Theragran/Minerals Tab* PO 1 tab DAILY LINA Administration Pto:Non Formulary 1 drop 09/13/19 21:00 09/23/19 08:43 Med* ([place] 1 Drop) TOPICAL 1 drop Q12H LINA Administration Ondansetron HCl 4 mg 09/13/19 12:11 09/23/19 11:55 Zofran Odt Tab* SL 4 mg Q6H PRN Administration NAUSEA/VOMITING Oxycodone HCl 5 mg 09/20/19 13:12 09/23/19 15:55 Roxycodone Tab* PO 5 mg Q4H PRN Administration PAIN - SEVERE Pantoprazole Sodium 40 mg 09/14/19 09:00 09/23/19 08:45 Protonix Tab* PO 40 mg DAILY LINA Administration Polyethylene Glycol/Electrolytes 17 gm 09/13/19 12:08 Miralax (17 Gm Dose Angel) PO DAILY PRN CONSTIPATION Polyvinyl Alcohol 1 drop 09/13/19 12:10 09/22/19 08:11 Polyvinyl Alcohol 1.4% Opth* BOTH EYES 1 drop Q2H PRN Administration DRY EYE Rosuvastatin Calcium 40 mg 09/20/19 21:00 09/22/19 21:07 Crestor (Nf) PO 40 mg BEDTIME LINA Administration Senna 2 tab 09/13/19 21:00 09/22/19 21:08 Senokot 8.6 Mg Tab* PO Not Given BEDTIME LINA Sertraline HCl 25 mg 09/14/19 09:00 09/23/19 08:45 Zoloft* PO 25 mg DAILY LINA Administration Trimethoprim/Sulfamethoxazole 1 tab 09/13/19 21:00 09/23/19 08:45 Bactrim Ds 800/160 Tab* PO 1 tab BID LINA Administration Vital Signs: Vital Signs Temp Pulse Resp BP Pulse Ox 98.3 F 71 18 109/56 99 09/23/19 16:11 09/23/19 16:11 09/23/19 18:33 09/23/19 16:11 09/23/19 17:35 Lab Results: Laboratory Results - last 24 hr 09/23/19 09/23/19 05:31 05:31 WBC 5.9 RBC 3.54 L Hgb 10.4 L Hct 31 L MCV 87 MCH 29 MCHC 34 RDW 16 H Plt Count 288 MPV 6.9 L Neut % (Auto) 62.0 Lymph % (Auto) 25.4 [place] % (Auto) 6.7 Eos % (Auto) 4.5 Baso % (Auto) 1.4 Absolute Neuts (auto) 3.6 Absolute Lymphs (auto) 1.5 Absolute Monos (auto) 0.4 Absolute Eos (auto) 0.3 Absolute Basos (auto) 0.1 Absolute Nucleated RBC 0.0 Nucleated RBC % 0.0 Sodium 136 Potassium 3.9 Chloride 101 Carbon Dioxide 27 Anion Gap 8 BUN 16 Creatinine 0.89 Est GFR ( Amer) 75.0 Est GFR (Non-Af Amer) 62.0 BUN/Creatinine Ratio 18.0 Glucose 96 Calcium 8.6 Total Bilirubin 0.40 AST 23 ALT 22 Alkaline Phosphatase 94 Total Protein 6.4 Albumin 3.6 Globulin 2.8 Albumin/Globulin Ratio 1.3 Exam: GENERAL: No apparent distress LUNGS: Clear bilaterally HEART: reg rhythm ABDOMEN: SOft, +BS EXTREMITIES: Left foot in boot with bandages, right thigh swollen NEUROLOGIC: sensation intact. Some leg weakness bilaterally, R>L, may be from polio or pain or both. Left foot in boot, right knee in IROM Assessment/Plan: 1. Right Distal femur periprosthetic fracture: TTWB RLE. IROM locked in extension. PT/OT 2. 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 3. Post-polio: supportive care. PT/OT 4. CAD: ASA/Zebeta/Crestor 5. Asthma: Singulair/Dulera 6. DVT Prophylaxis: Eliquis 7. Advance Directives: Full code. is surrogate decision maker 09/23/19 19:50
[2019-09-23] MEDS: Ezetimibe TAB* 10 MG PO SCH (20:09)
[2019-09-23] MEDS: Rosuvastatin (NF) 10 MG TAB PO SCH (20:09)
[2019-09-23] MEDS: Senna TAB 8.6 mg* TAB PO SCH (20:19)
[2019-09-24] MEDS: Methocarbamol TAB* 500 MG PO PRN ×3 (01:43→23:34)
[2019-09-24] MEDS: oxyCODONE TAB* 5 MG TAB PO PRN ×4 (01:43→23:33)
[2019-09-24] MEDS: Acetaminophen TAB* 325 MG PO SCH ×4 (01:47→20:43)
[2019-09-24] MEDS: Bisoprolol TAB* 5 MG PO SCH (09:01)
[2019-09-24] MEDS: Docusate CAP* 100 MG PO SCH ×2 (09:01→20:43)
[2019-09-24] MEDS: Apixaban* 2.5 MG TAB PO SCH ×2 (09:01→20:43)
[2019-09-24] MEDS: Cholecalciferol TAB* 1000 UNITS PO SCH ×2 (09:01→20:42)
[2019-09-24] MEDS: Hydrochlorothiazide TAB* 25 MG PO SCH (09:01)
[2019-09-24] MEDS: Aspirin EC TAB* 81 MG TAB.EC PO SCH (09:01)
[2019-09-24] MEDS: ALAWAY TOPICAL SCH ×2 (09:01→20:46)
[2019-09-24] MEDS: Montelukast Sodium TAB* 10 MG PO SCH (09:02)
[2019-09-24] MEDS: Mometasone/Formoter 200/5 MDI INH SCH ×2 (09:02→20:43)
[2019-09-24] MEDS: Lactobacillus Acidophilus* 1 TAB PO SCH (09:02)
[2019-09-24] MEDS: Multivitamins/Minerals TAB PO SCH (09:02)
[2019-09-24] MEDS: Sulfamethox/Trimethoprim DS 800/160* TAB PO SCH ×2 (09:03→20:42)
[2019-09-24] MEDS: Pantoprazole TAB * 40 MG TAB PO SCH (09:03)
[2019-09-24] MEDS: Sertraline* 25 MG TAB PO SCH (09:03)
[2019-09-24] MEDS: Ondansetron ODT TAB* 4 MG SL PRN ×2 (09:04→16:37)
[2019-09-24] MEDS: Artificial Tears* 15 ML BTL BOTH EYES PRN ×2 (10:43→21:01)
[2019-09-24] MEDS: Al Hydrox/Mg Hydrox/Simet LIQ* 30 ML UDC PO PRN (13:31)
--- NOTE | 2019-09-24 20:07 | PN ---
Progress Note Date of Service: 09/24/19 Note: EUNICE MIXON was visited. Therapy notes read and reviewed. She is set for discharge tomorrow, otherwise doing okay. Feels like she is ready Current Medications: Active Medications Generic Name Dose Route Start Last Admin Trade Name Freq PRN Reason Stop Dose Admin Acetaminophen 975 mg 09/13/19 13:00 09/24/19 14:06 Tylenol Tab* PO Not Given Q6H LINA Al Hydrox/Mg Hydrox/Simethicone 30 ml 09/13/19 11:51 09/24/19 13:31 Maalox Plus* PO 30 ml Q6H PRN Administration INDIGESTION Albuterol 2 puff 09/13/19 12:11 Ventolin Hfa Inhaler* INH Q4H PRN SOB/WHEEZING Apixaban 2.5 mg 09/13/19 21:00 09/24/19 09:01 Eliquis* PO 2.5 mg BID LINA Administration Aspirin 81 mg 09/14/19 09:00 09/24/19 09:01 Aspirin Ec Tab* PO 81 mg DAILY LINA Administration Bisacodyl 10 mg 09/13/19 12:17 Dulcolax Supp* NM DAILY PRN CONSTIPATION Bisoprolol Fumarate 10 mg 09/14/19 09:00 09/24/19 09:01 Zebeta Tab* PO 10 mg DAILY LINA Administration Cholecalciferol 1,000 units 09/13/19 21:00 09/24/19 09:01 Vitamin D Tab* PO 1,000 units BID LINA Administration Docusate Sodium 100 mg 09/13/19 21:00 09/24/19 09:01 Colace Cap* PO 100 mg BID LINA Administration Ezetimibe 10 mg 09/13/19 21:00 09/23/19 20:09 Zetia Tab* PO 10 mg BEDTIME LINA Administration Hydrochlorothiazide 6.25 mg 09/14/19 09:00 09/24/19 09:01 Hydrodiuril Tab* PO 6.25 mg DAILY LINA Administration Lactobacillus Rhamnosus 1 tab 09/18/19 09:00 09/24/19 09:02 Lactobacillus Acidophilus* PO 1 tab DAILY LINA Administration Methocarbamol 750 mg 09/13/19 12:15 09/24/19 09:03 Robaxin Tab* PO 750 mg Q6H PRN Administration SPASMS - MUSCLE Mometasone Furoate/Formoterol Fumar 2 puff 09/13/19 21:00 09/24/19 09:02 Dulera 200/5 Mdi* INH 2 puff BID LINA Administration Montelukast Sodium 10 mg 09/14/19 09:00 09/24/19 09:02 Singulair Tab* PO 10 mg DAILY LINA Administration Multivitamins/Minerals 1 tab 09/14/19 09:00 09/24/19 09:02 Theragran/Minerals Tab* PO 1 tab DAILY LINA Administration Pto:Non Formulary 1 drop 09/13/19 21:00 09/24/19 09:01 Med* ([place] 1 Drop) TOPICAL 1 drop Q12H LINA Administration Ondansetron HCl 4 mg 09/13/19 12:11 09/24/19 16:37 Zofran Odt Tab* SL 4 mg Q6H PRN Administration NAUSEA/VOMITING Oxycodone HCl 5 mg 09/20/19 13:12 09/24/19 13:31 Roxycodone Tab* PO 5 mg Q4H PRN Administration PAIN - SEVERE Pantoprazole Sodium 40 mg 09/14/19 09:00 09/24/19 09:03 Protonix Tab* PO 40 mg DAILY LINA Administration Polyethylene Glycol/Electrolytes 17 gm 09/13/19 12:08 Miralax (17 Gm Dose Angel) PO DAILY PRN CONSTIPATION Polyvinyl Alcohol 1 drop 09/13/19 12:10 09/24/19 10:43 Polyvinyl Alcohol 1.4% Opth* BOTH EYES 1 drop Q2H PRN Administration DRY EYE Rosuvastatin Calcium 40 mg 09/24/19 21:00 Crestor (Nf) PO BEDTIME LINA Senna 2 tab 09/13/19 21:00 09/23/19 20:19 Senokot 8.6 Mg Tab* PO Not Given BEDTIME LINA Sertraline HCl 25 mg 09/14/19 09:00 09/24/19 09:03 Zoloft* PO 25 mg DAILY LINA Administration Trimethoprim/Sulfamethoxazole 1 tab 09/13/19 21:00 09/24/19 09:03 Bactrim Ds 800/160 Tab* PO 1 tab BID LINA Administration Vital Signs: Vital Signs Temp Pulse Resp BP Pulse Ox 97.7 F 67 18 102/48 98 09/24/19 16:10 09/24/19 16:10 09/24/19 16:10 09/24/19 16:10 09/24/19 17:31 Exam: GENERAL: No apparent distress LUNGS: Clear bilaterally HEART: reg rhythm ABDOMEN: SOft, +BS EXTREMITIES: Left foot in boot with bandages, right thigh swollen NEUROLOGIC: sensation intact. Some leg weakness bilaterally, R>L, may be from polio or pain or both. Left foot in boot, right knee in IROM Assessment/Plan: 1. Right Distal femur periprosthetic fracture: TTWB RLE. IROM locked in extension. PT/OT 2. 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 3. Post-polio: supportive care. PT/OT 4. CAD: ASA/Zebeta/Crestor 5. Asthma: Singulair/Dulera 6. DVT Prophylaxis: Eliquis 7. Advance Directives: Full code. is surrogate decision maker 09/24/19 20:07
[2019-09-24] MEDS: Ezetimibe TAB* 10 MG PO SCH (20:42)
[2019-09-24] MEDS: Senna TAB 8.6 mg* TAB PO SCH (20:43)
[2019-09-24] MEDS ORDERED: CMCS:Rosuvastatin (NF) 20 MG TAB PO SCH (21:00)
[2019-09-25] MEDS: Acetaminophen TAB* 325 MG PO SCH ×3 (01:36→14:38)
[2019-09-25 06:10] VITALS: BP 137/58
[2019-09-25] MEDS: Ondansetron ODT TAB* 4 MG SL PRN ×2 (07:16→13:37)
[2019-09-25] MEDS: Methocarbamol TAB* 500 MG PO PRN ×2 (07:16→13:37)
[2019-09-25] MEDS: Mometasone/Formoter 200/5 MDI INH SCH (08:39)
[2019-09-25] MEDS: ALAWAY TOPICAL SCH (09:50)
[2019-09-25] MEDS: Apixaban* 2.5 MG TAB PO SCH (09:50)
[2019-09-25] MEDS: Aspirin EC TAB* 81 MG TAB.EC PO SCH (09:51)
[2019-09-25] MEDS: Cholecalciferol TAB* 1000 UNITS PO SCH (09:51)
[2019-09-25] MEDS: Hydrochlorothiazide TAB* 25 MG PO SCH (09:51)
[2019-09-25] MEDS: Bisoprolol TAB* 5 MG PO SCH (09:51)
[2019-09-25] MEDS: Lactobacillus Acidophilus* 1 TAB PO SCH (09:51)
[2019-09-25] MEDS: Docusate CAP* 100 MG PO SCH (09:51)
[2019-09-25] MEDS: Pantoprazole TAB * 40 MG TAB PO SCH (09:52)
[2019-09-25] MEDS: Multivitamins/Minerals TAB PO SCH (09:52)
[2019-09-25] MEDS: Sertraline* 25 MG TAB PO SCH (09:52)
[2019-09-25] MEDS: Montelukast Sodium TAB* 10 MG PO SCH (09:52)
[2019-09-25] MEDS: Sulfamethox/Trimethoprim DS 800/160* TAB PO SCH (09:52)
[2019-09-25] MEDS: oxyCODONE TAB* 5 MG TAB PO PRN (13:37)
== END 2019-09-25 14:10 | disposition home or self-care (01) | DRG 561 ==
LOC: PMRU 13:51 → UNDODISIN 09-15 15:45
PROVIDERS: ADMIT Physical Medicine & Rehabilitation; ATTEND Physical Medicine & Rehabilitation
PROC: F07Z5ZZ Bed Mobility Treatment (ICD-10-PCS; principal; 2019-09-13)
PROC: F07Z9ZZ Gait Training/Functional Ambulation Treatment (ICD-10-PCS; 2019-09-13)
PROC: F07Z8ZZ Transfer Training Treatment (ICD-10-PCS; 2019-09-13)
PROC: F07Z4ZZ Wheelchair Mobility Treatment (ICD-10-PCS; 2019-09-13)
PROC: F08Z0ZZ Bathing/Showering Techniques Treatment (ICD-10-PCS; 2019-09-13)
PROC: F08Z1ZZ Dressing Techniques Treatment (ICD-10-PCS; 2019-09-13)
PROC: F08Z3ZZ Feeding/Eating Treatment (ICD-10-PCS; 2019-09-13)
PROC: F08Z2ZZ Grooming/Personal Hygiene Treatment (ICD-10-PCS; 2019-09-13)
DX: M97.11XD Periprosthetic fracture around internal prosthetic right knee joint, subsequent encounter (principal); I25.10 Atherosclerotic heart disease of native coronary artery without angina pectoris; J45.909 Unspecified asthma, uncomplicated; E78.5 Hyperlipidemia, unspecified; I10 Essential (primary) hypertension; E55.9 Vitamin D deficiency, unspecified; K21.9 Gastro-esophageal reflux disease without esophagitis; R53.1 Weakness; Z86.12 Personal history of poliomyelitis; Z79.1 Long term (current) use of non-steroidal anti-inflammatories (NSAID); Z79.82 Long term (current) use of aspirin; Z79.899 Other long term (current) drug therapy; Z91.040 Latex allergy status; Z88.5 Allergy status to narcotic agent; Z88.8 Allergy status to other drugs, medicaments and biological substances; Z91.048 Other nonmedicinal substance allergy status; Z82.49 Family history of ischemic heart disease and other diseases of the circulatory system; Z95.5 Presence of coronary angioplasty implant and graft; Z82.3 Family history of stroke; Z82.5 Family history of asthma and other chronic lower respiratory diseases; Z82.69 Family history of other diseases of the musculoskeletal system and connective tissue; Z80.0 Family history of malignant neoplasm of digestive organs; Z82.61 Family history of arthritis; Z89.422 Acquired absence of other left toe(s)
CPT/HCPCS: 36415; 80053; 85025; 94640; A9270-GY